=== PATIENT | female | born 2000 | race Asian ===

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

== ENCOUNTER 2019-01-06 15:16 | Outpatient (REF) | payer OTHER, SELFPAY ==
[2019-01-06 20:06] LABS: C-Reactive Protein 0.21 mg/dL (0.0-0.3); TSH (W/Ref FT4) 0.58 uIU/mL (0.36-3.74)
[2019-01-06 20:50] LABS: ESR 6 mm/hr (0-20)
[2019-01-09 09:44] LABS: Cyclic Citrullinated Peptide <2.5 U/mL (<5.0)
[2019-01-09 16:36] LABS: ANA Interpretation Negative (NEGAT)
== END 2019-01-06 15:36 ==
LOC: NCHCN 15:16
PROVIDERS: PCP Family Medicine; Visit Provider Family Medicine
DX: I73.00 Raynaud's syndrome without gangrene (principal); R20.0 Anesthesia of skin; Z83.49 Family history of other endocrine, nutritional and metabolic diseases; R63.4 Abnormal weight loss
CPT/HCPCS: 85652; 86200; 84439; 84443; 86038; 86140

== ENCOUNTER 2019-04-21 12:10 | Outpatient (REF) | payer SELFPAY ==
[2019-04-24 14:24] LABS: Chlamydia Result Negative (Negative); GC Result Negative (Negative)
== END 2019-04-21 12:30 ==
LOC: LBN 12:10
PROVIDERS: PCP Family Medicine; Visit Provider Nurse Practitioner Family
DX: Z11.3 Encounter for screening for infections with a predominantly sexual mode of transmission (principal)
CPT/HCPCS: 87491; 87591

== ENCOUNTER 2019-06-22 07:26 | Outpatient (CLI) | payer OTHER, SELFPAY ==
--- NOTE | 2019-06-22 08:00 | DI.US_ITS ---
EXAM: US PELVIS TRANSVAGINAL CLINICAL HISTORY: Pelvic pain. Evaluate IUD placement,R10.2,Z97.5. TECHNIQUE: Transabdominal and transvaginal pelvic ultrasound was performed using standard protocol. COMPARISON: No exams were available for comparison FINDINGS: KIDNEYS: Kidneys are symmetric in size. No evidence of renal calculi. No evidence of hydronephrosis. No renal mass or cyst identified. UTERUS: Position: Retroverted. Size: 6.5 cm long by 3.8 cm AP x 4.0 cm transverse. Endometrium: 0.3 cm. Normal for patient's menstrual status. The intrauterine device is in good positi on within the endometrial canal. There is a small amount of free fluid within the endometrial canal. Myometrium: Unremarkable. Cervix: Unremarkable. OVARIES: Right: 2.9 x 1.8 x 1.9 cm Cyst or mass: Small follicular cysts present. No suspicious cystic or solid masses. Left: 3.7 x 1.5 x 1.4 cm Cyst or mass: Small follicular cysts are present. No suspicious cystic or solid masses. DOPPLER: Color: Symmetric and uniform flow to both ovaries. No hyperemia. Duplex: Normal ovarian arterial waveforms visualized. CUL-DE-SAC: Free fluid: Small amount of free fluid in the right adnexa and cul-de-sac. Other: None. IMPRESSION: 1. Normal sonographic appearance of the kidneys. 2. Normal-appearing uterus with endometrial stripe within normal limits. The IUD is in good position . 3. Unremarkable bilateral ovaries. 4. Small amount of free fluid in the right adnexa and cul-de-sac. DATA REPOSITORY:
== END 2019-06-22 07:46 ==
PROVIDERS: PCP Family Medicine; Visit Provider Obstetrics & Gynecology
DX: R10.2 Pelvic and perineal pain (principal); Z30.431 Encounter for routine checking of intrauterine contraceptive device; N83.01 Follicular cyst of right ovary; N83.02 Follicular cyst of left ovary
CPT/HCPCS: 76830; 76856

== ENCOUNTER 2019-08-28 17:58 | Emergency (ER) | payer OTHER, SELFPAY ==
[2019-08-28 18:05] VITALS: BP 149/80; PULSE 96; RESP 17; TEMP 37.4; O2SAT 100
--- NOTE | 2019-08-28 18:15 | DI.RAD_ITS ---
EXAM: XR FOOT RT COMPLETE CLINICAL HISTORY: Proximal-mid fifth metatarsal pain, avid runner. TECHNIQUE: 2D digital imaging was performed. COMPARISON: No exams were available for comparison FINDINGS: BONES: No acute fracture is present. No bony destructive lesion is seen. JOINTS: No dislocation present. SOFT TISSUE: Normal. IMPRESSION: Unremarkable radiographs of the right foot. DATA REPOSITORY: RADIATION DOSE DELIVERED:
--- NOTE | 2019-08-28 18:48 | DI.VRAD_ITS ---
PROCEDURE INFORMATION: Exam: XR Right Foot Complete Exam date and time: 08/28/2019 6:33 PM Age: 18 years old Clinical indication: Foot; Right; Patient HX: Proximal-mid fifth metatarsal pain, avid runner TECHNIQUE: Imaging protocol: XR Right foot. Views: 3 or more views. COMPARISON: No relevant prior studies available. FINDINGS: Bones/joints: Normal. Soft tissues: Normal. IMPRESSION: No acute findings. Dictated and Authenticated by: Fletcher Leone MD. Ordering:CONCHA Nair MD
--- NOTE | 2019-08-28 19:00 | W.ED.GENAD ---
Discharge Plan Disposition Patient Disposition: HOME Condition: Stable Discharge Details Chief Complaint: Orthopedic Clinical Impression: Pain, foot Primary Care Provider: Hyun Garcia ED Provider: Korey Diehl Home Meds and New Rx's Prescriptions: Continued Mirena 20 mcg/24 hours (5 yrs) 52 mg intrauterine device 1 device IY ONCE RF: 0 selenium sulfide 2.25 % shampoo 1 applic TP DAILY RF: 0 ketoconazole [Nizoral] 2 % shampoo 1 applic TP Q2W RF: 0 melatonin 10 mg tablet 10 mg PO HS PRNRF: 0 cbd 1 cap PO BID RF: 0 Discharge Instructions Instructions: Foot Sprain (ED) Additional Instructions: Egzc-[id number] anti-inflammatory as directed. Wear boot as needed, advance activity as tolerated. Rest, elevate, cool compresses every 2 hours for 20 minutes. Please watch for new or worsening symptoms and return to the ER for any concerns. I would like you to follow-up with your primary care provider in the next 5-7 days. If you are not improving, outpatient imaging for potential stress fracture may be indicated. Medical Decision Making 18-year-old female who increased her running recently presents with pain to her foot. Appears well, nontoxic. No erythema, swelling, ecchymosis. Very well could be an overuse syndrome but certainly cannot rule out the idea of a stress fracture given the HPI. Will obtain x-ray. I reviewed the x-ray and then later confirmed by virtual radiology as negative. I discussed findings with patient. We discussed her options. She prefers to wear a walking boot. Walking boot applied. We discussed resting, elevating, cool compresses. We discussed [id number] anti-inflammatory medication. We discussed the importance of outpatient follow-up through her primary care provider in the next week if her symptoms are not improving as she may require advanced imaging to rule out stress fracture. Patient has no additional questions or concerns and is comfortable with this plan. Medical Records Medical records reviewed: Yes I reviewed the patient's medical records. HPI General Mode of arrival: ambulatory. Date/Time Provider Initiated Documentation: 08/28/19 18:01. Limitations to Documentation: no limitations. Information obtained by: patient. HPI Narrative: 18-year-old female with no significant past medical history, is an avid runner, reporting atraumatic right foot pain that began over the weekend. She reports that she typically runs 2-2.5 miles and has now over the last short period of time run 3.5-4 miles. Denies trauma, fever, numbness, tingling, weakness. Has not taken any medication for her symptoms. Denies any other muscular or joint pain. Denies rash. Related Data Home Medications Medication Instructions Recorded Confirmed cbd 1 cap PO BID 04/19/19 08/28/19 ketoconazole 2 % shampoo 1 applic TP Q2W ml 04/19/19 08/28/19 melatonin 10 mg tablet 10 mg PO HS PRN 04/19/19 08/28/19 selenium sulfide 2.25 % shampoo 1 applic TP DAILY 04/19/19 08/28/19 levonorgestrel 20 mcg/24 hours (5 1 device IY ONCE 05/18/19 08/28/19 yrs) 52 mg intrauterine device Allergies Allergy/AdvReac Type Severity Reaction Status Date / Time prochlorperazine Allergy Severe dystonic Verified 06/22/19 08:48 [From Compazine] reaction prochlorperazine edisylate Allergy Severe dystonic Verified 06/22/19 08:48 [From Compazine] reaction prochlorperazine maleate Allergy Severe dystonic Verified 06/22/19 08:48 [From Compazine] reaction amoxicillin [Amoxicillin] Allergy Mild Skin Rash Verified 06/22/19 08:48 General Stated Complaint: Orthopedic ONEIDA: 4 Review of Systems Constitutional Constitutional: Denies fever(s) and Denies weakness Cardiovascular Cardiovascular: Denies dyspnea Respiratory Respiratory: Denies dyspnea Musculoskeletal Musculoskeletal: Denies back pain, Denies numbness and Denies tingling Integumentary/Breasts Skin/Breast: Denies rash Neurologic Neurologic: Denies numbness, Denies tingling and Denies weakness [facility] Medical History Allergic rhinitis (Acute) Anorexia nervosa (Chronic) IUD (intrauterine device) in place (Acute) Inserted 04/2019-Mirena Numbness and tingling of foot (Acute) Raynauds phenomenon (Acute) Seborrhea capitis (Acute) Sinusitis (Acute) Weight loss (Acute) Surgical History Tonsillectomy Family History Mother Endometriosis Father Thyroid disease Grandmother Endometriosis Maternal Uncle Non-Hodgkin lymphoma Maternal Aunt Diabetes Social History Smoking/Tobacco Use Status: Never Drug use: Never Substance use type: does not use Household members: other Details: Harry Sullivan Housing: other Details: Student at [employer] Number of Children: 0 Communication Needs: None Education Level: college Details: 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 Interested in substance abuse Sexually active: Yes Do you feel safe at home: Yes Do you feel safe in your relationship?: Yes Exam Const General: cooperative, healthy appearing, comfortable and no acute distress Orientation: alert and awake HENMT Head: normal to inspection, normocephalic and atraumatic Mouth: moist mucous membranes Eyes Conjunctivae: conjunctivae normal Neck Neck: normal visual inspection, trachea midline and supple Resp Effort & Inspection: normal respiratory effort and able to speak in complete sentences Cardio Rate: regular rate Rhythm: regular rhythm Skin General skin exam: no rashes or lesions noted Neuro General: patient alert, patient awake, moves all extremities and no focal motor deficits Sensory Exam: no sensory deficits noted Extrem General: limp Right lower extremity: normal to inspection, full ROM, normal capillary refill and foot Details: normal capillary refill, normal to inspection, tenderness (Proximal half of the fifth meta tarsal), toes with normal ROM, no edema, vascular exam Details: dorsalis pedis pulse present and normal capillary refill and tendon exam Details: active flexion normal and active extension normal Psych Appearance: grossly normal Mental Status: mental status grossly normal Course Vital Signs Vital signs: Vital Signs Temperature 37.4 C 08/28/19 18:05 Pulse 96 H 08/28/19 18:05 Respiratory Rate 17 08/28/19 18:05 Blood Pressure 149/80 H 08/28/19 18:05 Pulse Oximetry 100 08/28/19 18:05 Temperature 37.4 C 08/28/19 18:05 Temperature Source Temporal Artery Scan 08/28/19 18:05 Pulse 96 H 08/28/19 18:05 Respiratory Rate 17 08/28/19 18:05 Respiratory Effort 08/28/19 18:08 Blood Pressure 149/80 H 08/28/19 18:05 Blood Pressure Position Sitting 08/28/19 18:05 Pulse Oximetry 100 08/28/19 18:05 Oxygen Delivery Method Room Air 08/28/19 18:05 Oxygen Flow Rate 0 08/28/19 18:05 Pain Level 8 08/28/19 18:05
== END 2019-08-28 19:10 | disposition home or self-care (01) ==
PROVIDERS: Emergency Provider Physician Assistant; PCP Family Medicine
DX: M25.571 Pain in right ankle and joints of right foot (principal); Y93.02 Activity, running
CPT/HCPCS: 29515; 99283; 73630; L4361

== ENCOUNTER 2019-09-20 13:20 | Outpatient (REF) | payer OTHER, SELFPAY ==
[2019-09-25 12:05] LABS: SARS-CoV-2 RNA Undetected (Undetected); SARS-CoV-2 Specimen Source Nasopharynx
== END 2019-09-20 13:40 ==
LOC: NCHCN 13:20
PROVIDERS: PCP Family Medicine; Visit Provider Nurse Practitioner Family
DX: Z20.828 Contact with and (suspected) exposure to other viral communicable diseases (principal)
CPT/HCPCS: U0003

== ENCOUNTER 2019-10-05 10:05 | Emergency (ER) | payer OTHER, SELFPAY ==
[2019-10-05 10:10] VITALS: BP 125/80; PULSE 62; RESP 16; TEMP 36.6; O2SAT 100
--- NOTE | 2019-10-05 10:37 | W.ED.GENAD ---
Discharge Plan Disposition Patient Disposition: HOME Condition: Stable Discharge Details Chief Complaint: Abd Prob Clinical Impression: Cyst of left ovary Primary Care Provider: Hyun Garcia ED Provider: Ysabel Rg Home Meds and New Rx's Prescriptions: New ondansetron 4 mg tablet,disintegrating 4 mg PO Q8H PRN (Reason: nausea and vomiting) Qty: 10 RF: 0 No Action Mirena 20 mcg/24 hours (5 yrs) 52 mg intrauterine device 1 device IY ONCE RF: 0 selenium sulfide 2.25 % shampoo 1 applic TP DAILY RF: 0 ketoconazole [Nizoral] 2 % shampoo 1 applic TP Q2W RF: 0 melatonin 10 mg tablet 10 mg PO HS PRNRF: 0 cbd 1 cap PO BID RF: 0 Discharge Instructions Instructions: Ovarian Cyst (ED) Additional Instructions: Follow-up with women's wellness. Apply warm compresses. Please take Tylenol or Ibuprofen with food every 4-6 hours as needed for pain and swelling. Follow up with primary care provider in 3-5 days. Return to ED sooner if any worsening pain, fever, vaginal bleeding, vaginal discharge or concerns. Increase oral fluids. Referrals: Hyun Garcia MD [Primary Care Provider] - Micheal Felipe MD [ NON-[facility] STAFF PHYSICIAN] - Discharge Data Discharge Date/Time-TO BE ENTERED AT DEPARTURE: 10/05/19 12:13 Medical Decision Making 18-year-old female presents to the ER with left lower quadrant abdominal pain and left flank pain. She reports some mild pain started yesterday increased today just prior to arrival. Associated with vomiting. She does have a history of ovarian cyst but states that this pain is worse. Reports diarrhea 1 week ago. Denies fever chills. Denies vaginal bleeding or discharge. LNMP was in April, she does have the IUD Mirena. Pain is moderate to severe on a scale she rates pain 10 out of 10. Intermittent and colicky in nature. Position makes it better. 1044: At this time work-up ordered including CBC, CMP, urinalysis. Urine POC negative. CBC shows no leukocytosis, sodium potassium within normal limits. Urinalysis shows negative for blood no nitrites or leukocytes. CT abdomen pelvis without contrast ordered to rule out kidney stone versus ovarian cyst. Differential diagnosis at this time is diverticulitis, kidney stone, ovarian cyst, ectopic , UTI, pyelonephritis. Exam(s) a CT:CT abdomen & pelvis wo EXAM: CT ABDOMEN PELVIS WO CLINICAL HISTORY: Left flank pain, R/O Kidney stone, vs ovarian cyst. TECHNIQUE: Imaging Protocol: Axial computed tomography images with coronal and sagittal reformatted images were created and reviewed. COMPARISON: No exams were available for comparison FINDINGS: ABDOMEN: Lung Bases: Normal where visualized. Liver: Normal density. No measurable mass. Gallbladder and biliary tract: No radiodense calculus or biliary ductal dilation. Pancreas: Normal density, no abnormal calcifications or inflammatory process. Spleen: Normal. Kidneys: Normal size, contour and axis.No radiodense stones or obstructive uropathy. No masses seen. Adrenal glands: No mass is seen. Lymph nodes: Within normal limits. Abdominal Aorta: Abdominal portion non-dilated. PELVIS: Bladder:Symmetric distention, no gross wall thickening. Bowel: No obstruction or bowel wall thickening. No evidence of acute appendicitis. Peritoneal cavity: No collection or mesenteric inflammatory response there is a trace amount of fluid in the cul-de-sac which is likely physiologic. Reproductive organs: An IUD is in place. There is a 2.5 cm left ovarian cyst. Bones: Within normal limits. Soft Tissues: Within normal limits. IMPRESSION: 1. 2.5 cm left ovarian cyst. 2. No evidence of nephrolithiasis or obstructive uropathy. 3. Findings were discussed with the emergency department on the date of the examination 1149: Discussed findings with patient regarding ovarian cyst, she has had ovarian cyst in the past and has followed up with women's wellness. Plan is to discharge patient home, instructed on warm compresses and Tylenol and ibuprofen given strict return instructions, verbalized understanding. Medical Records Medical records reviewed: Yes I reviewed the patient's medical records. Medical records narrative: Reviewed ultrasound results from July 03, 2019, she did have bilateral ovarian cysts at that time, endometrial stripe was within normal limits for patient's menstrual status. Lab Data Lab results reviewed: Yes I reviewed the patient's lab results. HPI General Mode of arrival: ambulatory. Date/Time Provider Initiated Documentation: 10/05/19 10:23. Limitations to Documentation: no limitations. Information obtained by: patient. HPI Narrative: 18-year-old female presents to the ER with left lower quadrant abdominal pain and left flank pain. She reports some mild pain started yesterday increased today just prior to arrival. Associated with vomiting. She does have a history of ovarian cyst but states that this pain is worse. Reports diarrhea 1 week ago. Denies fever chills. Denies vaginal bleeding or discharge. LNMP was in April, she does have the IUD Mirena. Pain is moderate to severe on a scale she rates pain 10 out of 10. Intermittent and colicky in nature. Position makes it better. Related Data Home Medications Medication Instructions Recorded Confirmed cbd 1 cap PO BID 04/19/19 10/05/19 ketoconazole 2 % shampoo 1 applic TP Q2W ml 04/19/19 10/05/19 melatonin 10 mg tablet 10 mg PO HS PRN 04/19/19 10/05/19 selenium sulfide 2.25 % shampoo 1 applic TP DAILY 04/19/19 10/05/19 levonorgestrel 20 mcg/24 hours (5 1 device IY ONCE 05/18/19 10/05/19 yrs) 52 mg intrauterine device ondansetron 4 mg PO Q8H PRN #10 tab 10/05/19 Previous Rx's Medication Instructions Recorded ondansetron 4 mg PO Q8H PRN #10 tab 10/05/19 Allergies Allergy/AdvReac Type Severity Reaction Status Date / Time prochlorperazine Allergy Severe dystonic Verified 10/05/19 10:14 [From Compazine] reaction prochlorperazine edisylate Allergy Severe dystonic Verified 10/05/19 10:14 [From Compazine] reaction prochlorperazine maleate Allergy Severe dystonic Verified 10/05/19 10:14 [From Compazine] reaction amoxicillin [Amoxicillin] Allergy Mild Skin Rash Verified 10/05/19 10:14 General Stated Complaint: Abd Prob ONEIDA: 3 Review of Systems Narrative: Constitutional: Negative for weight loss, alert and oriented, well groomed, normal body habitus, appears uncomfortable. HEENT: Denies trauma, headaches, blurry vision, nasal discharge, sore throat, trouble swallowing. Chest: Denies chest pain, palpitations, irregular rhythm, hypertension. Respiratory: Denies Shortness of breath, cough, hemoptysis. GI: Denies constipation. Positive left lower quadrant abdominal pain, positive nausea vomiting, and diarrhea 1 week ago. : Denies dysuria, hematuria, rectal bleeding. Positive left flank pain. History of ovarian cyst. Neuro: Denies dizziness, blurry vision, weakness, syncope, headache or facial numbness. Hematologic: Denies easy bruising, intolerance to heat or cold, hair loss. [facility] Medical History Allergic rhinitis (Acute) Anorexia nervosa (Chronic) IUD (intrauterine device) in place (Acute) Inserted 04/2019-Mirena Numbness and tingling of foot (Acute) Raynauds phenomenon (Acute) Seborrhea capitis (Acute) Sinusitis (Acute) Weight loss (Acute) Surgical History Tonsillectomy Family History Mother Endometriosis Father Thyroid disease Grandmother Endometriosis Maternal Uncle Non-Hodgkin lymphoma Maternal Aunt Diabetes Social History Smoking/Tobacco Use Status: Never Alcohol Intake: current Alcohol Intake frequency: holidays/special occasions only Drug use: Never Substance use type: does not use Household members: other Details: Harry Sullivan Housing: other Details: Student at [employer] Number of Children: 0 Communication Needs: None Education Level: college Details: 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 Interested in substance abuse Sexually active: Yes Do you feel safe at home: Yes Do you feel safe in your relationship?: Yes Exam Narrative Exam Narrative: Constitutional: Alert and oriented x3. Appears stated age. Normal body habitus. Head: Normocephalic, no trauma. Eyes: Pupils PERRLA, Red reflex noted, EOM's intact. Eyelids symmetrical without lesions, discharge, or swelling. ENT: Bilateral TM's WNL, External ear normal to inspection, no mastoid TTP, swelling, or erythema, Nasal turbinates WNL, no nasal discharge. Normal dentition, Posterior pharynx WNL, no exudate. Chest: RRR, Normal S1, S2, distal pulses intact. Resp: Lungs clear to auscultation bilaterally, no wheezes, rales, or rhonchi. Abdomen: Soft nondistended, left lower quadrant tenderness and guarding with palpation. Hypoactive bowel sounds all 4 quadrants. Musculoskeletal: Normal gait, 5/5 strength to all four extremities. Skin: No suspicious rashes or lesions. Capillary refill less than 2 sec. Neurologic: Cranial nerves II-XII intact. Alert and oriented x 3. DTR's intact. Hematologic/Lymphatic: No ecchymosis, no lymphadenopathy. Course Vital Signs Vital signs: Vital Signs Temperature 36.6 C 10/05/19 10:10 Pulse 62 10/05/19 10:10 Respiratory Rate 16 10/05/19 10:10 Blood Pressure 125/80 10/05/19 10:10 Pulse Oximetry 100 10/05/19 10:10 Temperature 36.6 C 10/05/19 10:10 Temperature Source Temporal Artery Scan 10/05/19 10:10 Pulse 62 10/05/19 10:10 Respiratory Rate 16 10/05/19 10:10 Respiratory Effort Non-Labored 10/05/19 10:16 Blood Pressure 125/80 10/05/19 10:10 Blood Pressure Position Supine 10/05/19 10:10 Pulse Oximetry 100 10/05/19 10:10 Oxygen Delivery Method Room Air 10/05/19 10:10 Oxygen Flow Rate 0 10/05/19 10:10 Pain Level 9 10/05/19 10:10
[2019-10-05 10:40] LABS: Abs Immature Grans 0.01 k/cumm (0.0-0.09); Absolute Basophil Count 0.02 k/cumm (0.0-0.2); Absolute Eosinophil Count 0.05 k/cumm (0.0-0.7); Absolute Lymphocyte Count 2.84 k/cumm (1.2-3.4); Absolute Monocyte Count 0.48 k/cumm (0.11-0.7); Absolute Neutrophil Count 3.26 k/cumm (1.2-6.7); Basophils % 0.3; Eosinophils % 0.8; HCT 42.9 % (36.0-46.0); HGB 14.3 g/dL (12.0-15.5); Immature Grans % 0.2 %; Lymphocytes % 42.6; Mean Corp. HGB Concentration 33.3 g/dL (32.0-36.0); Mean Corpuscular Hemoglobin 28.7 pg (27.0-33.0); Mean Platelet Volume 11.3 fL (8.0-11.0); Monocytes % 7.2; Neutrophils % 48.9; Platelet Count 240 x1000/uL (130-400); RBC 4.99 m/cumm (4.00-5.20); RBC Distribution Width 12.3 % (11.7-14.6); White Blood Cell Count 6.66 k/cumm (4.4-10.8)
[2019-10-05 10:47] LABS: Bilirubin Negative (Negative); Blood Negative (Negative); Clarity Sl Cloudy (Clear); Glucose Negative (Negative); Ketones Negative (Negative); Leukocyte Esterase Negative (Negative); Nitrite Negative (Negative); Specific Gravity 1.025 (1.005-1.025); Urobilinogen 0.2 EU/dL (Up TO 0.2)
[2019-10-05 10:55] LABS: ALT 33 U/L (14-59); AST 27 U/L (15-37); Albumin 4.3 g/dL (3.4-5.0); Alkaline Phosphatase 128 U/L (46-116); Anion Gap 8.9 mmol/L (3-11); BUN 12 mg/dL (7-18); Bilirubin, Total 0.8 mg/dL (0.2-1.0); CO2 27.1 mmol/L (21.0-32.0); CREATININE 0.94 mg/dL (0.55-1.02); Calcium 9.2 mg/dL (8.5-10.1); Chloride 104 mmol/L (98-107); Glucose 118 mg/dL (74-106); Potassium 4.2 mmol/L (3.5-5.1); Sodium 140 mmol/L (136-145); Total Protein 7.2 g/dL (6.4-8.2)
[2019-10-05] MEDS: Normal Saline 1,000 ML 1000 ML IV (11:00)
[2019-10-05] MEDS: Acetaminophen 500 MG TAB PO (11:00)
[2019-10-05] MEDS: Ondansetron 4 MG/2 ML VIAL IVP (11:00)
--- NOTE | 2019-10-05 11:22 | DI.CT_ITS ---
EXAM: CT ABDOMEN PELVIS WO CLINICAL HISTORY: Left flank pain, R/O Kidney stone, vs ovarian cyst. TECHNIQUE: Imaging Protocol: Axial computed tomography images with coronal and sagittal reformatted images were created and reviewed. COMPARISON: No exams were available for comparison FINDINGS: ABDOMEN: Lung Bases: Normal where visualized. Liver: Normal density. No measurable mass. Gallbladder and biliary tract: No radiodense calculus or biliary ductal dilation. Pancreas: Normal density, no abnormal calcifications or inflammatory process. Spleen: Normal. Kidneys: Normal size, contour and axis.No radiodense stones or obstructive uropathy. No masses seen. Adrenal glands: No mass is seen. Lymph nodes: Within normal limits. Abdominal Aorta: Abdominal portion non-dilated. PELVIS: Bladder:Symmetric distention, no gross wall thickening. Bowel: No obstruction or bowel wall thickening. No evidence of acute appendicitis. Peritoneal cavity: No collection or mesenteric inflammatory response there is a trace amount of fluid in the cul-de-sac which is likely physiologic. Reproductive organs: An IUD is in place. There is a 2.5 cm left ovarian cyst. Bones: Within normal limits. Soft Tissues: Within normal limits. IMPRESSION: 1. 2.5 cm left ovarian cyst. 2. No evidence of nephrolithiasis or obstructive uropathy. 3. Findings were discussed with the emergency department on the date of the examination. RADIATION DOSE DELIVERED: Total DLP DATA REPOSITORY: All CT scans at this facility are submitted to the National Radiology Data Registry (NRDR) Dose Index Registry (DIR) with the [employer] (ACR). RADIATION OPTIMIZATION: All CT scans at this facility use at least one of these dose optimization te chniques: automated exposure control; mA and/or kV adjustment per patient size (includes targeted exa ms where dose is matched to clinical indication); or iterative reconstruction.
[2019-10-05 11:29] VITALS: BP 107/59; PULSE 60; RESP 18; TEMP 36.8; O2SAT 100
== END 2019-10-05 12:13 | disposition home or self-care (01) ==
PROVIDERS: Emergency Provider Registered Nurse Emergency; PCP Family Medicine
DX: N83.202 Unspecified ovarian cyst, left side (principal); R11.2 Nausea with vomiting, unspecified
CPT/HCPCS: 36415; 80053; 81025; 96361; 96374; 99285; 74176; 81003; 85025; 99284; J2405

== ENCOUNTER 2019-12-11 09:19 | Outpatient (REF) | payer OTHER, SELFPAY ==
[2019-12-18 13:20] LABS: Campylobacter PCR Negative (Negative); Salmonella PCR Negative (Negative); Shiga Toxin PCR Negative (Negative); Shigella/Enteroinvasive Ecoli Negative (Negative)
== END 2019-12-11 09:39 ==
LOC: NCHCN 09:19
PROVIDERS: PCP Family Medicine; Visit Provider Family Medicine
DX: R19.7 Diarrhea, unspecified (principal)
CPT/HCPCS: 87329; 87505; 83630; 87324

== ENCOUNTER 2020-03-09 10:00 | Outpatient (REF) | payer OTHER, SELFPAY ==
[2020-03-12 16:49] LABS: COVID-19 RT-PCR UVMMC Result Negative (Negative)
== END 2020-03-09 10:20 ==
LOC: NCHCN 10:00
PROVIDERS: PCP Family Medicine; Visit Provider Nurse Practitioner Family
DX: R50.9 Fever, unspecified (principal)
CPT/HCPCS: U0003

== ENCOUNTER 2020-04-07 19:47 | Emergency (ER) | payer OTHER, SELFPAY ==
[2020-04-07] VITALS (12 sets, daily range): BP systolic 123–145; BP diastolic 78–98; PULSE 56–66; RESP 18; TEMP 36.8; O2SAT 97–100
--- NOTE | 2020-04-07 19:58 | ED.GENADUL_ITS ---
Discharge Plan Disposition Patient Disposition: HOME Condition: Stable Discharge Details Clinical Impression: Left sided abdominal pain Primary Care Provider: Hyun Garcia ED Provider: Ysabel Rg Home Meds and New Rx's Prescriptions: No Action Mirena 20 mcg/24 hours (5 yrs) 52 mg intrauterine device 1 device IY ONCE RF: 0 tretinoin 0.025 % cream 1 applic topical QHS Qty: 20 RF: 2 selenium sulfide 2.25 % shampoo 1 applic TP DAILY RF: 0 ketoconazole [Nizoral] 2 % shampoo 1 applic TP Q2W RF: 0 melatonin 10 mg tablet 10 mg PO HS PRNRF: 0 cbd 1 cap PO BID RF: 0 Discharge Instructions Instructions: Abdominal Pain (ED) Additional Instructions: Follow up with primary care provider in 3-5 days. Return to ED sooner if any worsening or concerns. Increase oral fluids. Please take Tylenol or Ibuprofen with food every 4-6 hours as needed for pain and swelling. Take tramadol as directed with food. If no relief please return to the ED. We did discuss possible ultrasound to rule out ovarian torsion. Referrals: Hyun Garcia MD [Primary Care Provider] - Medical Decision Making 19-year-old female presents to the ER with chief complaint of left lower quadrant abdominal pain which began around 6:00 this evening. Patient states that it came on suddenly. She states it waxes and wanes, described as sharp radiates into her left flank. Associated with dizziness, nausea and loose stools. She does have an IUD in place. She is tearful and uncomfortable upon arrival. She did take meclizine and Tylenol prior to arrival. She denies any vaginal discharge or bleeding. No fever. Denies any problems urinating. Differential diagnosis includes but not limited to kidney stone, ovarian cyst, ovarian torsion, ectopic , small bowel obstruction, gastroenteritis. 2030: Patient hCG qualitative negative, CT abdomen pelvis with contrast ordered. Patient reports that her pain is intensifying. 2 more milligrams of morphine ordered. Exam: CT Abdomen And Pelvis With Contrast Exam date and time: 04/07/2020 8:23 PM Age: 19 years old Clinical indication: Localized; Left lower quadrant (llq); Patient HX: Lower abdominal pain off and on COMPARISON: CT ABDOMEN PELVIS WO 10/05/2019 11:12 AM FINDINGS: Liver: There is mild periportal edema. Gallbladder and bile ducts: Normal. No calcified stones. No ductal dilation. Pancreas: Normal. No ductal dilation. Spleen: Normal. No splenomegaly. Adrenal glands: Normal. No mass. Kidneys and ureters: Normal. No hydronephrosis. Stomach and bowel: Unremarkable. No obstruction. No mucosal thickening. Appendix: The appendix is not identified. There are no secondary signs for acute appendicitis. Intraperitoneal space: Minimal free fluid seen in the deep pelvis. Vasculature: Unremarkable. No abdominal aortic aneurysm. Lymph nodes: Unremarkable. No enlarged lymph nodes. Urinary bladder: Unremarkable as visualized. Reproductive: IUD in place. The uterus is retroverted, unchanged from previous study. Bones/joints: Unremarkable. No acute fracture. Soft tissues: Unremarkable. IMPRESSION: Minimal free fluid. No additional acute abnormality evident. Labs are largely unremarkable. No signs of infection, no signs of urinary tract infection. I did discuss CT results and lab results with patient who verbalized understanding. She is much more comfortable upon reevaluation. I did discuss ordering a ultrasound for tomorrow to rule out ovarian torsion or intrapelvic abnormality. Patient declined at this time. I did discuss strict return instructions and instructed that if pain gets severe not relieved by medications to return to the ED. Patient given 2 tramadol's to go. Patient was hemodynamically stable at the time of dictation. HPI General Mode of arrival: ambulatory . Date/Time Provider Initiated Documentation: 04/07/20 19:48 . Limitations to Documentation: no limitations . Information obtained by: patient . HPI Narrative: 19-year-old female presents to the ER with chief complaint of left lower quadrant abdominal pain which began around 6:00 this evening. Patient states that it came on suddenly. She states it waxes and wanes, described as sharp radiates into her left flank. Associated with dizziness, nausea and loose stools. She does have an IUD in place. She is tearful and uncomfortable upon arrival. She did take meclizine and Tylenol prior to arrival. She denies any vaginal discharge or bleeding. No fever. Denies any problems urinating. Related Data Home Medications Medication Instructions Recorded Confirmed cbd 1 cap PO BID 04/19/19 04/07/20 ketoconazole 2 % shampoo 1 applic TP Q2W ml 04/19/19 04/07/20 melatonin 10 mg tablet 10 mg PO HS PRN 04/19/19 04/07/20 selenium sulfide 2.25 % shampoo 1 applic TP DAILY 04/19/19 04/07/20 levonorgestrel 20 mcg/24 hours (6 1 device IY ONCE 05/18/19 04/07/20 yrs) 52 mg intrauterine device tretinoin 0.025 % topical cream 1 applic TOPICAL QHS #20 g 04/04/20 04/07/20 Previous Rx's Medication Instructions Recorded tretinoin 0.025 % topical cream 1 applic TOPICAL QHS #20 g 04/04/20 Allergies Allergy/AdvReac Type Severity Reaction Status Date / Time prochlorperazine Allergy Severe dystonic Verified 04/07/20 19:58 [From Compazine] reaction prochlorperazine edisylate Allergy Severe dystonic Verified 04/07/20 19:58 [From Compazine] reaction prochlorperazine maleate Allergy Severe dystonic Verified 04/07/20 19:58 [From Compazine] reaction amoxicillin [Amoxicillin] Allergy Mild Skin Rash Verified 04/07/20 19:58 General Stated Complaint: Abd Prob ONEIDA: 3 Review of Systems Narrative: Constitutional: Negative for weight loss, alert and oriented, well groomed, normal body habitus, appears comfortable. HEENT: Denies trauma, headaches, blurry vision, nasal discharge, sore throat, trouble swallowing. Chest: Denies chest pain, palpitations, irregular rhythm, hypertension. Respiratory: Denies Shortness of breath, cough, hemoptysis. GI: Denies constipation. Positive left lower quadrant abdominal pain, nausea, dry heaving. : Denies dysuria, hematuria, rectal bleeding. Positive left flank pain. Neuro: Denies blurry vision, weakness, syncope, headache or facial numbness. Positive dizziness. Hematologic: Denies easy bruising, intolerance to heat or cold, hair loss. [facility] Medical History Acne vulgaris Allergic rhinitis Anorexia nervosa IUD (intrauterine device) in place Inserted 04/2019-Mirena Numbness and tingling of foot Raynauds phenomenon Seborrhea capitis Sinusitis Weight loss Surgical History Tonsillectomy Family History Mother Endometriosis Father Thyroid disease Grandmother Endometriosis Maternal Uncle Non-Hodgkin lymphoma Maternal Aunt Diabetes Social History Smoking risk assessment performed?: No Alcohol Intake: current Alcohol Intake frequency: holidays/special occasions only Drug use: Never Substance use type: does not use Household members: other Details: Harry Sullivan Housing: other Details: Student at [employer] Number of Children: 0 Communication Needs: None Education Level: college Details: 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 Interested in substance abuse Sexually active: Yes Do you feel safe at home: Yes Do you feel safe in your relationship?: Yes Exam Narrative Exam Narrative: Constitutional: Alert and oriented x3. Appears stated age. Normal body habitus. Head: Normocephalic, no trauma. Eyes: Pupils PERRLA, Red reflex noted, EOM's intact. Eyelids symmetrical without lesions, discharge, or swelling. ENT: Bilateral TM's WNL, External ear normal to inspection, no mastoid TTP, swelling, or erythema, Nasal turbinates WNL, no nasal discharge. Normal d entition, Posterior pharynx WNL, no exudate. Chest: RRR, Normal S1, S2, distal pulses intact. Resp: Lungs clear to auscultation bilaterally, no wheezes, rales, or rhonchi. Abdomen: Soft, guarding, nondistended. Musculoskeletal: Normal gait, 5/5 strength to all four extremities. Skin: No suspicious rashes or lesions. Capillary refill less than 2 sec. Neurologic: Cranial nerves II-XII intact. Alert and oriented x 3. DTR's intact. Hematologic/Lymphatic: No ecchymosis, no lymphadenopathy. Course Vital Signs Vital signs: Vital Signs Temperature 36.8 C 04/07/20 19:52 Pulse 64 04/07/20 19:52 Respiratory Rate 18 04/07/20 19:52 Blood Pressure 145/78 H 04/07/20 19:52 Pulse Oximetry 100 04/07/20 19:52 Temperature 36.8 C 04/07/20 19:52 Temperature Source Tympanic 04/07/20 19:52 Pulse 64 04/07/20 19:52 Respiratory Rate 18 04/07/20 19:52 Blood Pressure 145/78 H 04/07/20 19:52 Pulse Oximetry 100 04/07/20 19:52 Oxygen Delivery Method Room Air 04/07/20 19:52 Oxygen Flow Rate 0 04/07/20 19:52 Pain Level 10 04/07/20 19:52
[2020-04-07] MEDS: Ondansetron 4 MG/2 ML VIAL IVP (20:00)
[2020-04-07] MEDS: MORPHine 10 MG/ML VIAL 2 MG IVP (20:05)
[2020-04-07] MEDS: Normal Saline 1,000 ML 1000 ML IV (20:05)
[2020-04-07 20:07] LABS: Abs Immature Grans 0.02 10^3/uL (0.0-0.06); Absolute Basophil Count 0.03 10^3/uL (0.0-0.2); Absolute Eosinophil Count 0.09 10^3/uL (0.0-0.7); Absolute Lymphocyte Count 2.72 10^3/uL (1.2-3.4); Absolute Monocyte Count 0.69 10^3/uL (0.1-0.8); Absolute Neutrophil Count 3.67 10^3/uL (1.2-6.7); Basophils % 0.4; Eosinophils % 1.2; HCT 42.9 % (36.0-46.0); HGB 14.1 g/dL (11.2-15.7); Immature Grans % 0.3; Lymphocytes % 37.7; MCH 28.8 pg (27.0-33.0); MCHC 32.9 % (32.0-36.0); MCV 87.7 fL (80-95); MPV 10.7 fL (8.0-11.0); Monocytes % 9.6; Neutrophils % 50.8; Nucleated RBC 0 %; Platelet Count 233 10^3/uL (130-400); RBC 4.89 10^6/uL (3.93-5.22); RDW 11.8 % (11.7-14.6); RDW-SD 38.1 fL; WBC 7.22 10^3/uL (4.4-10.8)
--- NOTE | 2020-04-07 20:15 | DI.CT_ITS ---
EXAM: CT ABDOMEN PELVIS W CLINICAL HISTORY: LLQ abd pain. TECHNIQUE: Imaging Protocol: Axial computed tomography images with coronal and sagittal reformatted images were created and reviewed CONTRAST MATERIAL: Intravenous: Omnipaque 74cc Oral: None COMPARISON: CT CT ABDOMEN PELVIS WO from 10/05/2019 FINDINGS: VISUALIZED LUNG BASES: No nodules nor pleural effusions evident. ABDOMEN: There is no ascites in the upper abdomen. There is a small amount of free fluid in the cul-de-sac.. LIVER: There are no obvious focal hepatic lesions evident. There is slight prominence of intrahepati c ducts. The CBD is not dilated GALLBLADDER/BILIARY: No obvious gallbladder pathology. CBD is not dilated. PANCREAS: No evidence of pancreatic mass nor dilatation of the pancreatic duct. SPLEEN: Spleen size is upper normal. Splenic and portal veins are patent. ADRENALS: There are no significant adrenal masses. KIDNEYS:No cysts evident. No solid renal masses. No calculi nor hydronephrosis.. ABDOMINAL AORTA: Abdominal aorta is not enlarged and there is no [id number]-[id number] adenopat hy. ABDOMINAL WALL/GI: No evidence of significant anterior abdominal wall hernia. No bowel obstruction. PELVIS: GI: Appendix is difficult to visualize but there is no obvious evidence of acute appendicitis.No evid ence of sigmoid diverticulitis. LYMPH NODES: There is no intrapelvic nor inguinal adenopathy. REPRODUCTIVE: There is an IUD in the uterus. The uterus is retroverted. Ovaries appear age-appropri ate. Small amount of fluid in the right owwnvw-kyi-py-sac. URINARY BLADDER: No calculi nor obvious masses evident OSSEOUS: No significant osseous lesions. IMPRESSION: 1. There is an IUD in the uterine cavity. The uterus is retroverted. 2. Is a small amount of fluid in the cul-de-sac and right adnexa, possibly just female physiologic. 3. There appears to be slight dilatation of intrahepatic ducts versus periportal edema. Recommend ap propriate hepatic/biliary blood work. 4. Pancreas appears unremarkable. 5. No evidence of appendicitis RADIATION DOSE DELIVERED: 500.82mGy.cm Total DLP DATA REPOSITORY: All CT scans at this facility are submitted to the National Radiology Data Registry (NRDR) Dose Index Registry (DIR) with the [employer] (ACR). RADIATION OPTIMIZATION: All CT scans at this facility use at least one of these dose optimization te chniques: automated exposure control; mA and/or kV adjustment per patient size (includes targeted exa ms where dose is matched to clinical indication); or iterative reconstruction.
[2020-04-07 20:20] LABS: HCG Qual (Serum) Negative
[2020-04-07 20:21] LABS: ALT 46 U/L (14-59); AST 30 U/L (15-37); Albumin 4.1 g/dL (3.4-5.0); Alkaline Phosphatase 205 U/L (46-116); BUN 17 mg/dL (7-18); Bilirubin, Total 0.4 mg/dL (0.2-1.0); CREATININE 0.96 mg/dL (0.55-1.02); Chloride 105 mmol/L (98-107); Glucose 127 mg/dL (74-106); Lipase 114 U/L (73-393); Magnesium 1.9 mg/dL (1.8-2.4); Potassium 3.8 mmol/L (3.5-5.1); Sodium 140 mmol/L (136-145)
[2020-04-07] MEDS: Omnipaque 350 MG/ML 100 ML BTL IJ (20:34)
[2020-04-07] MEDS: Normal Saline - Diluent 50 ML VIAL IV (21:00)
[2020-04-07] MEDS: Normal Saline Flush 10 ML SYR IVP (21:00)
--- NOTE | 2020-04-07 21:15 | DI.VRAD_ITS ---
PROCEDURE INFORMATION: Exam: CT Abdomen And Pelvis With Contrast Exam date and time: 04/07/2020 8:23 PM Age: 19 years old Clinical indication: Localized; Left lower quadrant (llq); Patient HX: Lower abdominal pain off and on over a period of time but increases today TECHNIQUE: Imaging protocol: Computed tomography of the abdomen and pelvis with intravenous contrast. Radiation optimization: All CT scans at this facility use at least one of these dose optimization techniques: automated exposure control; mA and/or kV adjustment per patient size (includes targeted exams where dose is matched to clinical indication); or iterative reconstruction. Contrast material: OMNIPAQUE 350; Contrast volume: 74 ml; Contrast route: INTRAVENOUS (IV); COMPARISON: CT ABDOMEN PELVIS WO 10/05/2019 11:12 AM FINDINGS: Liver: There is mild periportal edema. Gallbladder and bile ducts: Normal. No calcified stones. No ductal dilation. Pancreas: Normal. No ductal dilation. Spleen: Normal. No splenomegaly. Adrenal glands: Normal. No mass. Kidneys and ureters: Normal. No hydronephrosis. Stomach and bowel: Unremarkable. No obstruction. No mucosal thickening. Appendix: The appendix is not identified. There are no secondary signs for acute appendicitis. Intraperitoneal space: Minimal free fluid seen in the deep pelvis. Vasculature: Unremarkable. No abdominal aortic aneurysm. Lymph nodes: Unremarkable. No enlarged lymph nodes. Urinary bladder: Unremarkable as visualized. Reproductive: IUD in place. The uterus is retroverted, unchanged from previous study. Bones/joints: Unremarkable. No acute fracture. Soft tissues: Unremarkable. IMPRESSION: Minimal free fluid. No additional acute abnormality evident. Dictated and Authenticated by: Mckayla Cordero MD. Ordering:BIANCA Grady MD
[2020-04-07 21:33] LABS: Bilirubin Negative (Negative); Blood Negative (Negative); Clarity Clear (Clear); Glucose Negative (Negative); Ketones Negative (Negative); Leukocyte Esterase Negative (Negative); Nitrite Negative (Negative); Urobilinogen 0.2 EU/dL (Up TO 0.2)
--- NOTE | 2020-04-07 21:57 | NUR.NOTE ---
sent follow up referral to pcp for follow up in 3 to 5 days for abd pain Juvenal Mccarthy Note:
== END 2020-04-07 22:10 | disposition home or self-care (01) ==
LOC: ER 22:08
PROVIDERS: Emergency Provider Registered Nurse Emergency; PCP Family Medicine
DX: R10.32 Left lower quadrant pain (principal); R42 Dizziness and giddiness; R11.0 Nausea
CPT/HCPCS: 36415; 80053; 81025; 83690; 96361; 96374; 96375; 96376; 99285; 74177; 81003; 83735; 84703; 85025; 99284; J2270; J2405; J3490

== ENCOUNTER 2020-04-08 18:52 | Outpatient (REF) | payer OTHER, SELFPAY ==
[2020-04-10 11:06] LABS: IgA 85 mg/dL (85-499); Interpretation (See Note); Tissue Transglutaminase IgA <1.2 U/mL (<4.0)
== END 2020-04-08 19:12 ==
LOC: NCHCN 18:52
PROVIDERS: PCP Family Medicine; Visit Provider Family Medicine
DX: R10.32 Left lower quadrant pain (principal)
CPT/HCPCS: 82784; 83516

== ENCOUNTER 2020-05-23 03:47 | Outpatient (CLI) | payer OTHER, SELFPAY ==
[2020-05-23 09:48] LABS: ALT 45 U/L (14-59); AST 24 U/L (15-37); Albumin 4.2 g/dL (3.4-5.0); Alkaline Phosphatase 156 U/L (46-116); Anion Gap 11.5 mmol/L (3-11); BUN 17 mg/dL (7-18); Bilirubin, Total 0.6 mg/dL (0.2-1.0); CO2 24.5 mmol/L (21.0-32.0); CREATININE 0.8 mg/dL (0.55-1.02); Calcium 9.2 mg/dL (8.5-10.1); Chloride 104 mmol/L (98-107); GGT 38 U/L (5-55); Glucose 89 mg/dL (74-106); Potassium 3.8 mmol/L (3.5-5.1); Sodium 140 mmol/L (136-145); TSH (W/Ref FT4) 1.43 uIU/mL (0.36-3.74); Total Protein 6.8 g/dL (6.4-8.2)
== END 2020-05-23 03:48 | disposition home or self-care (01) ==
LOC: LBO 03:47
PROVIDERS: Internal Medicine; PCP Family Medicine; Visit Provider Family Medicine
DX: R19.4 Change in bowel habit (principal); R74.8 Abnormal levels of other serum enzymes
CPT/HCPCS: 36415; 80053; 82977; 84443

== ENCOUNTER 2020-10-08 12:05 | Emergency (ER) | payer OTHER, SELFPAY ==
[2020-10-08 12:10] VITALS: BP 145/100; PULSE 111; RESP 22; TEMP 37; O2SAT 100
--- NOTE | 2020-10-08 12:45 | DI.US_ITS ---
Exam(s) US PELVIS TRANSVAGINAL EXAM: US PELVIS TRANSVAGINAL CLINICAL HISTORY: LLQ abd pain, vomiting, r/o torsion vs cyst. TECHNIQUE: Transabdominal and transvaginal pelvic ultrasound was performed using standard protocol. COMPARISON: US US PELVIS TRANSVAGINAL from 06/22/2019 FINDINGS: KIDNEYS: Kidneys are symmetric in size. No evidence of renal calculi. No evidence of hydronephrosis. No renal mass or cyst identified. UTERUS: Position: Retroverted. Size: 6.1 long by 4.0 AP by 4.3 transverse cm Endometrium: 0.2 cm. Normal for patient's menstrual status. There is an IUD in good position. Myometrium: Unremarkable. Cervix: Unremarkable. OVARIES: Right: 3.9 x 2 x 1.7 cm Cyst or mass: Functional cysts are present. Left: 3.3 x 2.1 x 2.3 cm Cyst or mass: Functional cysts are present. DOPPLER: Color: Symmetric and uniform flow to both ovaries. No hyperemia. Duplex: Normal ovarian arterial waveforms visualized. CUL-DE-SAC: Free fluid: Afnr-rh-jqhjuhig amount of free fluid is seen in the cul-de-sac and adjacent to the right ovary. Other: None. IMPRESSION: 1. Normal sonographic appearance of the kidneys. 2. Normal-appearing uterus with endometrial stripe within normal limits. IUD in good position. 3. Unremarkable bilateral ovaries. 4. Small amount of free pelvic fluid. DATA REPOSITORY:
[2020-10-08 13:08] LABS: Abs Immature Grans 0.04 10^3/uL (0.0-0.06); Absolute Basophil Count 0.03 10^3/uL (0.0-0.2); Absolute Eosinophil Count 0.01 10^3/uL (0.0-0.7); Absolute Lymphocyte Count 0.86 10^3/uL (1.2-3.4); Absolute Monocyte Count 0.47 10^3/uL (0.1-0.8); Absolute Neutrophil Count 11.75 10^3/uL (1.2-6.7); Basophils % 0.2; Eosinophils % 0.1; HCT 44.4 % (36.0-46.0); HGB 15.3 g/dL (11.2-15.7); Immature Grans % 0.3; Lymphocytes % 6.5; MCH 29.5 pg (27.0-33.0); MCHC 34.5 % (32.0-36.0); MCV 85.5 fL (80-95); MPV 10.6 fL (8.0-11.0); Monocytes % 3.6; Neutrophils % 89.3; Nucleated RBC 0 %; Platelet Count 310 10^3/uL (130-400); RBC 5.19 10^6/uL (3.93-5.22); RDW 11.6 % (11.7-14.6); RDW-SD 35.9 fL; WBC 13.16 10^3/uL (4.4-10.8)
[2020-10-08] MEDS: Normal Saline 1,000 ML 1000 ML IV (13:11)
[2020-10-08 13:13] LABS: Bilirubin Negative (Negative); Blood Negative (Negative); Clarity Sl Cloudy (Clear); Glucose Negative (Negative); Ketones 80 mg/dL (Negative); Leukocyte Esterase Negative (Negative); Nitrite Negative (Negative); Specific Gravity >= 1.030 (1.005-1.025); Urobilinogen 0.2 EU/dL (Up TO 0.2)
[2020-10-08] MEDS: Ondansetron 4 MG/2 ML VIAL IVP (13:14)
[2020-10-08] MEDS: Ketorolac 30 MG/ML VIAL IVP (13:14)
[2020-10-08 13:21] LABS: ALT 30 U/L (14-59); AST 21 U/L (15-37); Albumin 4.6 g/dL (3.4-5.0); Alkaline Phosphatase 134 U/L (46-116); Anion Gap 13.5 mmol/L (3-11); BUN 11 mg/dL (7-18); Bilirubin, Total 0.9 mg/dL (0.2-1.0); CO2 23.5 mmol/L (21.0-32.0); CREATININE 0.7 mg/dL (0.55-1.02); Calcium 9.6 mg/dL (8.5-10.1); Chloride 105 mmol/L (98-107); Glucose 106 mg/dL (74-106); Lipase 72 U/L (73-393); Potassium 3.7 mmol/L (3.5-5.1); Sodium 142 mmol/L (136-145); Total Protein 7.6 g/dL (6.4-8.2)
[2020-10-08 13:28] LABS: Bacteria Many HPF (Negative); C & S Indicated? Yes; Casts Negative LPF (Negative); Crystals Negative HPF (Negative); Epithelial Cells Few HPF (Negative); Mucus Moderate (Negative); Other Cells Negative (Negative); RBC Negative HPF (0-2)
--- NOTE | 2020-10-08 13:37 | ED.GENADUL_ITS ---
Discharge Plan Disposition Patient Disposition: HOME Condition: Improving Discharge Details Clinical Impression: Chronic abdominal pain, Vomiting Primary Care Provider: Hyun Garcia ED Provider: Lilliana Maciel Home Meds and New Rx's Prescriptions: Continued Mirena 20 mcg/24 hours (5 yrs) 52 mg intrauterine device 1 device IY ONCE RF: 0 tretinoin 0.025 % cream 1 applic topical QHS Qty: 20 RF: 2 selenium sulfide 2.25 % shampoo 1 applic TP DAILY RF: 0 ketoconazole [Nizoral] 2 % shampoo 1 applic TP Q2W RF: 0 melatonin 10 mg tablet 10 mg PO HS PRNRF: 0 cbd 1 cap PO BID RF: 0 Discharge Instructions Instructions: Chronic Pain (ED), Acute Nausea and Vomiting (ED), Abdominal Pain (ED) Additional Instructions: Drink plenty of fluids and get plenty of rest. Alternate tylenol and motrin as needed and directed for pain. 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 You can also follow-up again with gynecology Dr. Garcia for reevaluation. Return immediately to the emergency department if you develop any worsening or new concerning symptoms. Discharge Data Discharge Date/Time-TO BE ENTERED AT DEPARTURE: 10/08/20 16:09 Discharge Physician: Lilliana Maciel Medical Decision Making 19-year-old female with a history of colon spasm per GI at [facility] presents for left lower quadrant abdominal pain consistent with her previous colon spasm in the past. Patient appears uncomfortable. Blood pressure and heart rate elevated. She is nontoxic. She is tender in the left quadrant. Urine test negative. Differential diagnosis includes ovarian cyst versus torsion, colitis, IBS, colon spasm, etc. discussed with mom that as patient had a normal CT abdomen and pelvis in March, and she is young, do not want to expose her to additional radiation and she is agreeable. As she feels that her symptoms are consistent with her previous colon spasm, will obtain screening labs, urinalysis and pelvic ultrasound. Will give Toradol and Zofran and reassess. [facility] records reviewed note that patient had an unremarkable MRCP and colonoscopy in the last few months potentially a functional bowel disorder or abdominal wall pain and recommended neuromodulators and the IBgard which she is taking prn. Review of records note that she was seen by Dr. Garcia for pelvic pain in the last year and was thought not to be related to [employer] at that time. Labs reviewed. White blood cell count 13. Anion gap 13. Urinalysis notes 3-5 WBCs negative leukocyte esterase, and negative nitrite. Urine culture sent. Pelvic ultrasound noted free fluid but no other acute findings. Patient reassessed and she feels much better and feels good to go home. As her pain is resolved, and patient appears nontoxic and comfortable, do not feel indication for CT imaging and mom and patient are agreeable and would rather hold on any other imaging at this time. Patient advised to follow-up with [facility] for reevaluation. Usual and customary return precautions given prior to discharge. Medical Records Medical records reviewed: Yes I reviewed the patient's medical records. Imaging Data Radiologic Study: Radiologist's impression: US PELVIS TRANSVAGINAL CLINICAL HISTORY: LLQ abd pain, vomiting, r/o torsion vs cyst. TECHNIQUE: Transabdominal and transvaginal pelvic ultrasound was performed using standard protocol. COMPARISON: US US PELVIS TRANSVAGINAL from 06/22/2019 FINDINGS: KIDNEYS: Kidneys are symmetric in size. No evidence of renal calculi. No evidence of hydronephrosis. No renal mass or cyst identified. UTERUS: Position: Retroverted. Size: 6.1 long by 4.0 AP by 4.3 transverse cm Endometrium: 0.2 cm. Normal for patient's menstrual status. There is an IUD in good position. Myometrium: Unremarkable. Cervix: Unremarkable. OVARIES: Right: 3.9 x 2 x 1.7 cm Cyst or mass: Functional cysts are present. Left: 3.3 x 2.1 x 2.3 cm Cyst or mass: Functional cysts are present. DOPPLER: Color: Symmetric and uniform flow to both ovaries. No hyperemia. Duplex: Normal ovarian arterial waveforms visualized. CUL-DE-SAC: Free fluid: [id number] amount of free fluid is seen in the cul-de-sac and adjacent to the right ovary. Other: None. IMPRESSION: 1. Normal sonographic appearance of the kidneys. 2. Normal-appearing uterus with endometrial stripe within normal limits. IUD in good position. 3. Unremarkable bilateral ovaries. 4. Small amount of free pelvic fluid. Lab Data Lab results reviewed: Yes I reviewed the patient's lab results. Labs: 10/08/20 13:00 Urine - Reflex from Ua Urine Culture - Final Gram Positive Lacey,Mixed Laboratory Tests Range/Units 10/08/20 10/08/20 10/08/20 12:28 12:28 13:00 WBC (4.4-10.8) 10^3/uL 13.16 H RBC (3.93-5.22) 10^6/uL 5.19 Hgb (11.2-15.7) g/dL 15.3 Hct (36.0-46.0) % 44.4 MCV (80-95) fL 85.5 MCH (27.0-33.0) pg 29.5 MCHC (32.0-36.0) % 34.5 RDW (11.7-14.6) % 11.6 L Plt Count (130-400) 10^3/uL 310 MPV (8.0-11.0) fL 10.6 Immature Gran % 0.3 Neutrophils % 89.3 Lymphocytes % 6.5 Monocytes % 3.6 Eosinophils % 0.1 Basophils % 0.2 Nucleated RBC % % 0 Absolute Neutrophils (1.2-6.7) 10^3/uL 11.75 H Absolute Lymphocytes (1.2-3.4) 10^3/uL 0.86 L Absolute Monocytes (0.1-0.8) 10^3/uL 0.47 Absolute Eosinophils (0.0-0.7) 10^3/uL 0.01 Absolute Basophils (0.0-0.2) 10^3/uL 0.03 Sodium (136-145) mmol/L 142 Potassium (3.5-5.1) mmol/L 3.7 Chloride (98-107) mmol/L 105 Carbon Dioxide (21.0-32.0) mmol/L 23.5 Anion Gap (3-11) mmol/L 13.5 H BUN (7-18) mg/dL 11 Creatinine (0.55-1.02) mg/dL 0.7 Estimated GFR/1.73 m2 (mL/min/1.73m2) >= 60.00 Glucose (74-106) mg/dL 106 Calcium (8.5-10.1) mg/dL 9.6 Total Bilirubin (0.2-1.0) mg/dL 0.9 AST (15-37) U/L 21 ALT (14-59) U/L 30 Alkaline Phosphatase (46-116) U/L 134 H Total Protein (6.4-8.2) g/dL 7.6 Albumin (3.4-5.0) g/dL 4.6 Lipase (73-393) U/L 72 Urine Color (Yellow) Yellow Urine Clarity (Clear) Sl Cloudy Urine pH (5-8) 6.0 Ur Specific [place] (1.005-1.025) >= 1.030 H Urine Protein (Negative) mg/dL Trace H Urine Ketones (Negative) mg/dL 80 H Urine Blood (Negative) Negative Urine Nitrite (Negative) Negative Urine Bilirubin (Negative) Negative Urine Urobilinogen (Up TO 0.2) EU/dL 0.2 Ur Leukocyte Esterase (Negative) Negative Urine RBC (0-2) HPF Negative Urine WBC (0-5) HPF 3-5 Ur Epithelial Cells (Negative) HPF Few Urine Crystals (Negative) HPF Negative Urine Bacteria (Negative) HPF Many Urine Casts (Negative) LPF Negative Urine Mucus (Negative) Moderate Urine Other (Negative) Negative Ur Culture Indicated? Yes Urine Glucose (Negative) mg/dL Negative HPI General Mode of arrival: ambulatory . Date/Time Provider Initiated Documentation: 10/08/20 12:38 . Limitations to Documentation: no limitations . Information obtained by: patient and family . HPI Narrative: Patient is a 19-year-old female with a history of colon spasm diagnosed by GI at [facility] presents for left lower quadrant abdominal pain since this morning consistent with her previous episodes of colon spasm. She states she has had similar pain over the past year but states this episode is more intense than previous. She describes it as intermittent, sharp and located in the left lower quadrant with radiation around to the left lower back. She states she takes over the counter IBgard as recommended by [facility] for this pain which she took today without relief. She admits to multiple episodes of vomiting this morning which mainly consisted of food and out bile. She states she had a normal bowel movement this morning. She states she has an IUD and denies any known . She denies any fever, new meds, new foods, urinary symptoms or vaginal bleeding. Related Data Home Medications Medication Instructions Recorded Confirmed cbd 1 cap PO BID 04/19/19 04/07/20 ketoconazole 2 % shampoo 1 applic TP Q2W ml 04/19/19 04/07/20 melatonin 10 mg tablet 10 mg PO HS PRN 04/19/19 04/07/20 selenium sulfide 2.25 % shampoo 1 applic TP DAILY 04/19/19 04/07/20 levonorgestrel 20 mcg/24 hours (6 1 device IY ONCE 05/18/19 04/07/20 yrs) 52 mg intrauterine device tretinoin 0.025 % topical cream 1 applic TOPICAL QHS #20 g 04/04/20 04/07/20 Previous Rx's Medication Instructions Recorded tretinoin 0.025 % topical cream 1 applic TOPICAL QHS #20 g 04/04/20 Allergies Allergy/AdvReac Type Severity Reaction Status Date / Time prochlorperazine Allergy Severe dystonic Verified 10/08/20 12:16 [From Compazine] reaction prochlorperazine edisylate Allergy Severe dystonic Verified 10/08/20 12:16 [From Compazine] reaction prochlorperazine maleate Allergy Severe dystonic Verified 10/08/20 12:16 [From Compazine] reaction amoxicillin [Amoxicillin] Allergy Mild Skin Rash Verified 10/08/20 12:16 General Stated Complaint: Abd Prob ONEIDA: 3 Review of Systems All systems reviewed & are unremarkable except as noted in HPI and below Constitutional Constitutional: Reports as per HPI, Denies chills and Denies fever(s) Eyes Eyes: Denies blurry vision ENT Ears, Nose, Mouth, and Throat: Denies dizziness, Denies sore throat and Denies throat swelling Cardiovascular Cardiovascular: Denies chest pain and Denies dyspnea Respiratory Respiratory: Denies cough and Denies dyspnea Gastrointestinal Gastrointestinal: Reports abdominal pain, Denies diarrhea and Reports vomiting Genitourinary Genitourinary: Denies hematuria and Denies dysuria Musculoskeletal Musculoskeletal: Denies back pain and Denies numbness Integumentary/Breasts Skin/Breast: Denies lesions and Denies rash Neurologic Neurologic: Denies dizziness, Denies localized weakness and Denies numbness Allergic/Immunologic Allergic/Immunologic: Denies throat swelling [facility] Medical History Acne vulgaris Allergic rhinitis Anorexia nervosa IUD (intrauterine device) in place Inserted 04/2019-Mirena Numbness and tingling of foot Raynauds phenomenon Seborrhea capitis Sinusitis Weight loss Surgical History Tonsillectomy Family History Mother Endometriosis Father Thyroid disease Grandmother Endometriosis Maternal Uncle Non-Hodgkin lymphoma Maternal Aunt Diabetes Social History Smoking/Tobacco Use Status: Current every day Tobacco Type: cigarettes Smoking risk assessment performed?: Yes Alcohol Intake: current Alcohol Intake frequency: holidays/special occasions only Drug use: Never Substance use type: does not use Household members: other Details: Harry Sullivan Housing: other Details: Student at [employer] Number of Children: 0 Communication Needs: None Education Level: college Details: 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 Interested in substance abuse Sexually active: Yes Do you feel safe at home: Yes Do you feel safe in your relationship?: Yes Exam Const General: cooperative, healthy appearing, uncomfortable and no acute distress HENMT Head: normal to inspection Face and sinus: normal facial exam Eyes General: appearance normal, both eyes and all related structures EOM: EOM intact bilaterally Neck Neck: normal visual inspection and No submandibular swelling Lymphatic: no lymphadenopathy noted Chest Chest: normal inspection of the chest and no tenderness Resp Effort & Inspection: normal respiratory effort and able to speak in complete sentences Auscultation: clear to auscultation bilaterally Cardio Rate: regular rate Rhythm: regular rhythm GI Inspection: normal to inspection Palpation: soft, not firm, not rigid and tender in the LLQ Auscultation: normal bowel sounds Skin General skin exam: no rashes or lesions noted Neuro General: patient alert, patient awake and patient oriented x3 Cognition: normal cognition Speech: speech normal Motor: muscle tone normal throughout Sensory Exam: no sensory deficits noted Extrem General: normal to inspection, full ROM, capillary refill normal, no calf tenderness bilaterally and no edema Psych Appearance: grossly normal Mental Status: mental status grossly normal Speech and Movement: speech and movement normal Affect: normal affect Course Vital Signs Vital signs: Vital Signs Temperature 98.6 F 10/08/20 12:10 Pulse 111 H 10/08/20 12:10 Respiratory Rate 22 10/08/20 12:10 Blood Pressure 145/100 H 10/08/20 12:10 Pulse Oximetry 100 10/08/20 12:10 Temperature 98.6 F 10/08/20 12:10 Temperature Source Temporal Artery Scan 10/08/20 12:10 Pulse 111 H 10/08/20 12:10 Respiratory Rate 22 10/08/20 12:10 Respiratory Effort Non-Labored 10/08/20 12:13 Blood Pressure 145/100 H 10/08/20 12:10 Blood Pressure Position Sitting 10/08/20 12:10 Pulse Oximetry 100 10/08/20 12:10 Oxygen Delivery Method Room Air 10/08/20 12:10 Oxygen Flow Rate 0 10/08/20 12:10 Pain Level 9 10/08/20 12:10 Lab/Test Results Lab/Test Results: 10/08/20 13:00 Urine - Reflex from Ua Urine Culture - Pending Laboratory Tests Range/Units 10/08/20 10/08/20 10/08/20 12:28 12:28 13:00 WBC (4.4-10.8) 10^3/uL 13.16 H RBC (3.93-5.22) 10^6/uL 5.19 Hgb (11.2-15.7) g/dL 15.3 Hct (36.0-46.0) % 44.4 MCV (80-95) fL 85.5 MCH (27.0-33.0) pg 29.5 MCHC (32.0-36.0) % 34.5 RDW (11.7-14.6) % 11.6 L Plt Count (130-400) 10^3/uL 310 MPV (8.0-11.0) fL 10.6 Immature Gran % 0.3 Neutrophils % 89.3 Lymphocytes % 6.5 Monocytes % 3.6 Eosinophils % 0.1 Basophils % 0.2 Nucleated RBC % % 0 Absolute Neutrophils (1.2-6.7) 10^3/uL 11.75 H Absolute Lymphocytes (1.2-3.4) 10^3/uL 0.86 L Absolute Monocytes (0.1-0.8) 10^3/uL 0.47 Absolute Eosinophils (0.0-0.7) 10^3/uL 0.01 Absolute Basophils (0.0-0.2) 10^3/uL 0.03 Sodium (136-145) mmol/L 142 Potassium (3.5-5.1) mmol/L 3.7 Chloride (98-107) mmol/L 105 Carbon Dioxide (21.0-32.0) mmol/L 23.5 Anion Gap (3-11) mmol/L 13.5 H BUN (7-18) mg/dL 11 Creatinine (0.55-1.02) mg/dL 0.7 Estimated GFR/1.73 m2 (mL/min/1.73m2) >= 60.00 Glucose (74-106) mg/dL 106 Calcium (8.5-10.1) mg/dL 9.6 Total Bilirubin (0.2-1.0) mg/dL 0.9 AST (15-37) U/L 21 ALT (14-59) U/L 30 Alkaline Phosphatase (46-116) U/L 134 H Total Protein (6.4-8.2) g/dL 7.6 Albumin (3.4-5.0) g/dL 4.6 Lipase (73-393) U/L 72 Urine Color (Yellow) Yellow Urine Clarity (Clear) Sl Cloudy Urine pH (5-8) 6.0 Ur Specific [place] (1.005-1.025) >= 1.030 H Urine Protein (Negative) mg/dL Trace H Urine Ketones (Negative) mg/dL 80 H Urine Blood (Negative) Negative Urine Nitrite (Negative) Negative Urine Bilirubin (Negative) Negative Urine Urobilinogen (Up TO 0.2) EU/dL 0.2 Ur Leukocyte Esterase (Negative) Negative Urine RBC (0-2) HPF Negative Urine WBC (0-5) HPF 3-5 Ur Epithelial Cells (Negative) HPF Few Urine Crystals (Negative) HPF Negative Urine Bacteria (Negative) HPF Many Urine Casts (Negative) LPF Negative Urine Mucus (Negative) Moderate Urine Other (Negative) Negative Ur Culture Indicated? Yes Urine Glucose (Negative) mg/dL Negative POC- Test(urine) Negative
[2020-10-08] MEDS: Ondansetron O.D.T. 4 MG TABEF PO (15:58)
[2020-10-08 15:59] VITALS: BP 112/49; PULSE 65; O2SAT 99
== END 2020-10-08 16:09 | disposition home or self-care (01) ==
PROVIDERS: Emergency Provider Physician Assistant; PCP Family Medicine
DX: R10.32 Left lower quadrant pain (principal); G89.29 Other chronic pain; R11.2 Nausea with vomiting, unspecified
CPT/HCPCS: 36415; 80053; 81025; 83690; 96361; 96374; 96375; 99284; 76830; 76856; 81003; 81015; 85025; 87086; 99285; J1885; J2405

== ENCOUNTER 2020-12-02 17:48 | Emergency (ER) | payer OTHER, SELFPAY ==
[2020-12-02 17:55] VITALS: BP 133/78; PULSE 86; TEMP 36.9; O2SAT 100
--- NOTE | 2020-12-02 17:55 | W.ED.GENAD ---
Discharge Plan Disposition Patient Disposition: HOME Condition: Improving Discharge Details Clinical Impression: Chronic abdominal pain Primary Care Provider: Hyun Garcia ED Provider: Lilliana Maciel Home Meds and New Rx's Prescriptions: Continued Mirena 20 mcg/24 hours (5 yrs) 52 mg intrauterine device 1 device IY ONCE RF: 0 tretinoin 0.025 % cream 1 applic topical QHS Qty: 20 RF: 2 selenium sulfide 2.25 % shampoo 1 applic TP DAILY RF: 0 ketoconazole [Nizoral] 2 % shampoo 1 applic TP Q2W RF: 0 melatonin 10 mg tablet 10 mg PO HS PRNRF: 0 cbd 1 cap PO BID RF: 0 Discharge Instructions Instructions: Chronic Abdominal Pain (ED) Additional Instructions: Drink plenty of fluids and get plenty of rest. Alternate tylenol and motrin as needed and directed for pain. Call your primary care doctor tomorrow to schedule a follow-up appointment for reevaluation. Follow-up with [facility] gastroenterology for further evaluation. Return immediately to the emergency department if you develop any worsening or new concerning symptoms. Discharge Data Discharge Physician: Lilliana Maciel Medical Decision Making 20-year-old female with a history of colon spasm causing chronic abdominal pain presents with severe abdominal pain that started 1 hour ago. She had a pelvic ultrasound in September which was unremarkable. She had a CT abdomen and pelvis in March which was negative for acute findings. Labs obtained on arrival and unremarkable. Patient appears uncomfortable, and appears to have intermittent episodes of pain during my evaluation. Her abdomen is soft and nontender. Patient states she would prefer not to have any additional imaging as this does feel consistent with her usual colon spasms. She would like a dose of Toradol which is helped her in the past. We will also give IV Tylenol, IV Decadron, fluids and reassess. Patient declined the IV Tylenol and Decadron. Patient reassessed after Toradol and felt much better and is requesting to go home. She is advised to call her PCP and [facility] gastroenterology for follow-up. She states she is thinking of having her primary care doctor give her Toradol as needed for colon spasm as she does not want to take the neuropathic medications that were recommended by [facility] GI. Usual and customary return precautions given prior to discharge. Medical Records Medical records reviewed: Yes I reviewed the patient's medical records. Lab Data Lab results reviewed: Yes I reviewed the patient's lab results. Labs: Laboratory Tests Range/Units 12/02/20 12/02/20 12/02/20 18:05 18:10 18:10 WBC (4.4-10.8) 10^3/uL 9.16 RBC (3.93-5.22) 10^6/uL 4.89 Hgb (11.2-15.7) g/dL 14.1 Hct (36.0-46.0) % 42.6 MCV (80-95) fL 87.1 MCH (27.0-33.0) pg 28.8 MCHC (32.0-36.0) % 33.1 RDW (11.7-14.6) % 11.6 L Plt Count (130-400) 10^3/uL 261 MPV (8.0-11.0) fL 10.5 Immature Gran % 0.3 Neutrophils % 54.8 Lymphocytes % 36.5 Monocytes % 7.5 Eosinophils % 0.7 Basophils % 0.2 Nucleated RBC % % 0 Absolute Neutrophils (1.2-6.7) 10^3/uL 5.02 Absolute Lymphocytes (1.2-3.4) 10^3/uL 3.34 Absolute Monocytes (0.1-0.8) 10^3/uL 0.69 Absolute Eosinophils (0.0-0.7) 10^3/uL 0.06 Absolute Basophils (0.0-0.2) 10^3/uL 0.02 Sodium (136-145) mmol/L 142 Potassium (3.5-5.1) mmol/L 3.1 L Chloride (98-107) mmol/L 104 Carbon Dioxide (21.0-32.0) mmol/L 27.3 Anion Gap (3-11) mmol/L 10.7 BUN (7-18) mg/dL 13 Creatinine (0.55-1.02) mg/dL 0.9 Estimated GFR/1.73 m2 (mL/min/1.73m2) >= 60.00 Glucose (74-106) mg/dL 111 H Calcium (8.5-10.1) mg/dL 9.5 Total Bilirubin (0.2-1.0) mg/dL 0.5 AST (15-37) U/L 24 ALT (14-59) U/L 32 Alkaline Phosphatase (46-116) U/L 149 H Total Protein (6.4-8.2) g/dL 7.9 Albumin (3.4-5.0) g/dL 4.8 Lipase (73-393) U/L 100 Urine Color (Yellow) Yellow Urine Clarity (Clear) Clear Urine pH (5-8) 6.0 Ur Specific [place] (1.005-1.025) 1.025 Urine Protein (Negative) mg/dL Negative Urine Ketones (Negative) mg/dL Negative Urine Blood (Negative) Negative Urine Nitrite (Negative) Negative Urine Bilirubin (Negative) Negative Urine Urobilinogen (Up TO 0.2) EU/dL 0.2 Ur Leukocyte Esterase (Negative) Negative Urine Glucose (Negative) mg/dL Negative HPI General Mode of arrival: ambulatory. Date/Time Provider Initiated Documentation: 12/02/20 17:55. Limitations to Documentation: no limitations. Information obtained by: patient. HPI Narrative: Patient is a 20-year-old female with a history of colon spasm which she states was diagnosed by [facility] gastroenterology within the past year after an unremarkable colonoscopy presents with left lower quadrant abdominal pain consistent with her usual colon spasms. She states she was recommended to take IBgard for her chronic intermittent abdominal pain and states she took it this morning but this did not prevent her colon spasm attack this evening. She has been offered neuropathic pain prescriptions for her abdominal pain but states she has declined to take them as she does not want to be on neurologic medication. She states this started 1 hour ago. She states she usually does not have any alleviating or aggravating factors. She states this usually occurs at random. She has not taken medication prior to arrival. She denies any fever, nausea, vomiting, diarrhea or urinary symptoms. Related Data Home Medications Medication Instructions Recorded Confirmed cbd 1 cap PO BID 04/19/19 04/07/20 ketoconazole 2 % shampoo 1 applic TP Q2W ml 04/19/19 04/07/20 melatonin 10 mg tablet 10 mg PO HS PRN 04/19/19 04/07/20 selenium sulfide 2.25 % shampoo 1 applic TP DAILY 04/19/19 04/07/20 levonorgestrel 20 mcg/24 hours (6 1 device IY ONCE 05/18/19 04/07/20 yrs) 52 mg intrauterine device tretinoin 0.025 % topical cream 1 applic TOPICAL QHS #20 g 04/04/20 04/07/20 Previous Rx's Medication Instructions Recorded tretinoin 0.025 % topical cream 1 applic TOPICAL QHS #20 g 04/04/20 Allergies Allergy/AdvReac Type Severity Reaction Status Date / Time prochlorperazine Allergy Severe dystonic Verified 12/02/20 17:57 [From Compazine] reaction prochlorperazine edisylate Allergy Severe dystonic Verified 12/02/20 17:57 [From Compazine] reaction prochlorperazine maleate Allergy Severe dystonic Verified 12/02/20 17:57 [From Compazine] reaction amoxicillin [Amoxicillin] Allergy Mild Skin Rash Verified 12/02/20 17:57 General ONEIDA: 3 Review of Systems All systems reviewed & are unremarkable except as noted in HPI and below Constitutional Constitutional: Reports as per HPI, Denies chills and Denies fever(s) Eyes Eyes: Denies blurry vision ENT Ears, Nose, Mouth, and Throat: Denies dizziness, Denies sore throat and Denies throat swelling Cardiovascular Cardiovascular: Denies chest pain and Denies dyspnea Respiratory Respiratory: Denies cough and Denies dyspnea Gastrointestinal Gastrointestinal: Reports abdominal pain, Denies diarrhea and Denies vomiting Genitourinary Genitourinary: Denies hematuria and Denies dysuria Musculoskeletal Musculoskeletal: Denies back pain and Denies numbness Integumentary/Breasts Skin/Breast: Denies lesions and Denies rash Neurologic Neurologic: Denies dizziness, Denies localized weakness and Denies numbness Allergic/Immunologic Allergic/Immunologic: Denies throat swelling [facility] Medical History Acne vulgaris Allergic rhinitis Anorexia nervosa IUD (intrauterine device) in place Inserted 04/2019-Mirena Numbness and tingling of foot Raynauds phenomenon Seborrhea capitis Sinusitis Weight loss Surgical History Tonsillectomy Family History Mother Endometriosis Father Thyroid disease Grandmother Endometriosis Maternal Uncle Non-Hodgkin lymphoma Maternal Aunt Diabetes Social History (Reviewed 04/07/20 @ 20:01 by Ysabel Heredia Smoking/Tobacco Use Status: Current every day Tobacco Type: cigarettes Smoking risk assessment performed?: Yes Alcohol Intake: current Alcohol Intake frequency: holidays/special occasions only Drug use: Never Substance use type: does not use Household members: other Details: Harry Sullivan Housing: other Details: Student at [employer] Number of Children: 0 Communication Needs: None Education Level: college Details: 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 Interested in substance abuse Sexually active: Yes Do you feel safe at home: Yes Do you feel safe in your relationship?: Yes Exam Const General: cooperative, healthy appearing and no acute distress HENMT Head: normal to inspection Face and sinus: normal facial exam Eyes General: appearance normal, both eyes and all related structures EOM: EOM intact bilaterally Neck Neck: normal visual inspection and No submandibular swelling Lymphatic: no lymphadenopathy noted Chest Chest: normal inspection of the chest and no tenderness Resp Effort & Inspection: normal respiratory effort and able to speak in complete sentences Auscultation: clear to auscultation bilaterally Cardio Rate: regular rate Rhythm: regular rhythm GI Inspection: normal to inspection Palpation: soft, not firm, not rigid and nontender Auscultation: normal bowel sounds Skin General skin exam: no rashes or lesions noted Neuro General: patient alert, patient awake and patient oriented x3 Cognition: normal cognition Speech: speech normal Motor: muscle tone normal throughout Sensory Exam: no sensory deficits noted Extrem General: normal to inspection, full ROM, capillary refill normal, no calf tenderness bilaterally and no edema Psych Appearance: grossly normal Mental Status: mental status grossly normal Speech and Movement: speech and movement normal Affect: normal affect
--- NOTE | 2020-12-02 18:00 | RT.EKG_ITS ---
APPROVED REPORT Exam: Resting ECG Reason for Exam: chest pain Patient Location: E HR:80 bpm ECG Measurements Heart Rate 80 AXIS OH 138 P 76 QRSd 81 QRS 85 QT 411 T 51 QTc 474 Conclusion Sinus rhythm...normal P axis, V-rate 60- 99. Sinus. Artifact from pt movement. No STEMI. I have reviewed and interpreted ECG and agree with software generated interpretation.
[2020-12-02 18:22] LABS: Abs Immature Grans 0.03 10^3/uL (0.0-0.06); Absolute Basophil Count 0.02 10^3/uL (0.0-0.2); Absolute Eosinophil Count 0.06 10^3/uL (0.0-0.7); Absolute Lymphocyte Count 3.34 10^3/uL (1.2-3.4); Absolute Monocyte Count 0.69 10^3/uL (0.1-0.8); Absolute Neutrophil Count 5.02 10^3/uL (1.2-6.7); Basophils % 0.2; Eosinophils % 0.7; HCT 42.6 % (36.0-46.0); HGB 14.1 g/dL (11.2-15.7); Immature Grans % 0.3; Lymphocytes % 36.5; MCH 28.8 pg (27.0-33.0); MCHC 33.1 % (32.0-36.0); MCV 87.1 fL (80-95); MPV 10.5 fL (8.0-11.0); Monocytes % 7.5; Neutrophils % 54.8; Nucleated RBC 0 %; Platelet Count 261 10^3/uL (130-400); RBC 4.89 10^6/uL (3.93-5.22); RDW 11.6 % (11.7-14.6); RDW-SD 37.2 fL; WBC 9.16 10^3/uL (4.4-10.8)
[2020-12-02 18:29] LABS: Bilirubin Negative (Negative); Blood Negative (Negative); Clarity Clear (Clear); Glucose Negative (Negative); Ketones Negative (Negative); Leukocyte Esterase Negative (Negative); Nitrite Negative (Negative); Specific Gravity 1.025 (1.005-1.025); Urobilinogen 0.2 EU/dL (Up TO 0.2)
[2020-12-02 18:35] VITALS: BP 134/76; PULSE 61; RESP 18; TEMP 36.9; O2SAT 100
[2020-12-02 18:35] LABS: ALT 32 U/L (14-59); AST 24 U/L (15-37); Albumin 4.8 g/dL (3.4-5.0); Alkaline Phosphatase 149 U/L (46-116); Anion Gap 10.7 mmol/L (3-11); BUN 13 mg/dL (7-18); Bilirubin, Total 0.5 mg/dL (0.2-1.0); CO2 27.3 mmol/L (21.0-32.0); CREATININE 0.9 mg/dL (0.55-1.02); Calcium 9.5 mg/dL (8.5-10.1); Chloride 104 mmol/L (98-107); Glucose 111 mg/dL (74-106); Lipase 100 U/L (73-393); Potassium 3.1 mmol/L (3.5-5.1); Sodium 142 mmol/L (136-145); Total Protein 7.9 g/dL (6.4-8.2)
[2020-12-02] MEDS: Potassium Chloride 20 MEQ TABCR 40 MEQ PO (18:45)
[2020-12-02] MEDS: Ketorolac 30 MG/ML VIAL IVP (19:05)
[2020-12-02] MEDS: Normal Saline 1,000 ML 1000 ML IV (19:09)
[2020-12-02] MEDS: Ondansetron 4 MG/2 ML VIAL IVP (19:24)
[2020-12-02 20:49] VITALS: BP 115/74; PULSE 60; RESP 20; TEMP 36.9; O2SAT 98
== END 2020-12-02 20:50 | disposition home or self-care (01) ==
PROVIDERS: Emergency Provider Physician Assistant; PCP Family Medicine
DX: R10.9 Unspecified abdominal pain (principal); G89.29 Other chronic pain
CPT/HCPCS: 36415; 80053; 81025; 83690; 93005; 96361; 96374; 96375; 99284; 81003; 85025; 93010; J1885; J2405

== ENCOUNTER 2020-12-16 17:18 | Outpatient (REF) | payer OTHER, SELFPAY ==
[2020-12-16 15:13] LABS: Anion Gap 11.8 mmol/L (3-11); BUN 11 mg/dL (7-18); CO2 24.2 mmol/L (21.0-32.0); CREATININE 0.8 mg/dL (0.55-1.02); Calcium 9.2 mg/dL (8.5-10.1); Chloride 105 mmol/L (98-107); Glucose 95 mg/dL (74-106); Magnesium 1.9 mg/dL (1.8-2.4); Potassium 4.1 mmol/L (3.5-5.1); Sodium 141 mmol/L (136-145); TSH (W/Ref FT4) 0.92 uIU/mL (0.36-3.74)
[2020-12-16 17:28] LABS: PHOSPHORUS 4.3 mg/dL (2.6-4.7)
[2020-12-17 10:33] LABS: Parathyroid Hormone,Intact 29 pg/mL (19-88)
== END 2020-12-16 17:19 | disposition home or self-care (01) ==
LOC: NCHCN 17:18
PROVIDERS: PCP Family Medicine; Visit Provider Family Medicine
DX: R74.8 Abnormal levels of other serum enzymes (principal); R00.2 Palpitations
CPT/HCPCS: 80048; 82306; 83735; 83970; 84100; 84443

== ENCOUNTER 2020-12-24 01:46 | Outpatient (RCR) | payer OTHER, SELFPAY ==
--- NOTE | 2020-12-24 09:45 | HOLTER_ITS ---
APPROVED REPORT Conclusion This is a 48-hour Holter monitor ordered for palpitations Predominant rhythm is sinus with an average heart rate of 75. Minimum was 48, maximum 147 3 isolated PVCs were seen There were a total of 36 atrial premature beats There was no atrial fibrillation, no high-grade AV block, no pauses greater than 3 seconds Patient symptoms were reported. All corresponded to sinus rhythm with rates ranging from 57-92, none corresponding with any dysrhythmia
== END 2021-01-12 23:59 | disposition home or self-care (01) ==
LOC: RT 01:46
PROVIDERS: PCP Family Medicine; Visit Provider Family Medicine
DX: R00.2 Palpitations (principal); I49.3 Ventricular premature depolarization; I49.1 Atrial premature depolarization
CPT/HCPCS: 93225; 93226

== ENCOUNTER 2021-04-08 15:27 | Outpatient (REF) | payer OTHER, SELFPAY ==
[2021-04-09 23:23] LABS: COVID-19 RT-PCR UVMMC Result Negative (Negative)
== END 2021-04-08 15:28 | disposition home or self-care (01) ==
LOC: NCHCN 15:27
PROVIDERS: PCP Family Medicine; Visit Provider Family Medicine
DX: Z20.822 Contact with and (suspected) exposure to COVID-19 (principal)
CPT/HCPCS: U0003

== ENCOUNTER 2021-05-14 01:40 | Outpatient (CLI) | payer OTHER, SELFPAY ==
[2021-05-14 14:15] LABS: PHOSPHORUS 4.2 mg/dL (2.6-4.7); TSH (W/Ref FT4) 0.72 uIU/mL (0.36-3.74)
[2021-05-15 05:43] LABS: Vitamin D 25 Total 51.8 ng/mL (30-100)
[2021-05-15 10:55] LABS: Parathyroid Hormone,Intact 29 pg/mL (19-88)
== END 2021-05-14 01:41 | disposition home or self-care (01) ==
LOC: LBO 01:40
PROVIDERS: PCP Family Medicine; Visit Provider Family Medicine
DX: R74.8 Abnormal levels of other serum enzymes (principal)
CPT/HCPCS: 36415; 82306; 83970; 84100; 84443

== ENCOUNTER 2021-05-16 03:51 | Outpatient (CLI) | payer SELFPAY ==
[2021-05-19 13:25] LABS: TB Interpretation Negative (Negative); TB1 Ag minus Nil 0.02 IU/ml
== END 2021-05-16 03:52 | disposition home or self-care (01) ==
LOC: LBO 03:51
PROVIDERS: PCP Family Medicine; Visit Provider Family Medicine
DX: Z11.1 Encounter for screening for respiratory tuberculosis (principal)
CPT/HCPCS: 86480

== ENCOUNTER 2022-07-29 10:39 | Outpatient (REF) | payer OTHER, SELFPAY ==
[2022-07-29 15:54] LABS: HCT 41.6 % (36.0-46.0); MCH 29.1 pg (27.0-33.0); MCHC 33.7 % (32.0-36.0); MCV 87 fL (80-95); MPV 11.6 fL (8.0-11.0); Platelet Count 226 10^3/uL (130-400); RBC 4.81 10^6/uL (3.93-5.22); RDW 11.7 % (11.7-14.6); RDW-SD 37.1 fL
[2022-07-29 16:22] LABS: ALT 24 U/L (14-59); AST 18 U/L (15-37); Albumin 4.4 g/dL (3.4-5.0); Alkaline Phosphatase 134 U/L (46-116); Anion Gap 9.1 mmol/L (3-11); BUN 16 mg/dL (7-18); Bilirubin, Total 0.7 mg/dL (0.2-1.0); CO2 27.9 mmol/L (21.0-32.0); CREATININE 0.9 mg/dL (0.55-1.02); Calcium 9.4 mg/dL (8.5-10.1); Chloride 104 mmol/L (98-107); Estimated GFR 92.12 (mL/min/1.73m2); GGT 29 U/L (5-55); Glucose 93 mg/dL (74-106); Potassium 4.4 mmol/L (3.5-5.1); Sodium 141 mmol/L (136-145); TSH (W/Ref FT4) 1.08 uIU/mL (0.36-3.74); Total Protein 7.1 g/dL (6.4-8.2)
[2022-07-29 17:53] LABS: Vitamin D 25 Total 37.7 ng/mL (30-100)
== END 2022-07-29 10:40 | disposition home or self-care (01) ==
LOC: NCHCN 10:39
PROVIDERS: PCP Family Medicine; Visit Provider Family Medicine
DX: F41.1 Generalized anxiety disorder (principal); F50.00 Anorexia nervosa, unspecified; R74.8 Abnormal levels of other serum enzymes; I73.00 Raynaud's syndrome without gangrene; Z83.49 Family history of other endocrine, nutritional and metabolic diseases
CPT/HCPCS: 80053; 82306; 85027; 82977; 84443

== ENCOUNTER 2023-01-01 21:51 | Outpatient (REF) | payer OTHER, SELFPAY | END 2023-01-01 21:52 | disposition home or self-care (01) | LOC: NCHCN 21:51 | PROVIDERS: PCP Family Medicine; Visit Provider Family Medicine | DX: N30.00 Acute cystitis without hematuria (principal); R82.89 Other abnormal findings on cytological and histological examination of urine; B96.20 Unspecified Escherichia coli [E. coli] as the cause of diseases classified elsewhere | CPT/HCPCS: 87077; 87086; 87186 ==

== ENCOUNTER 2023-02-01 22:19 | Outpatient (REF) | payer OTHER, SELFPAY | END 2023-02-01 22:20 | disposition home or self-care (01) | LOC: NCHCN 22:19 | PROVIDERS: PCP Family Medicine; Visit Provider Family Medicine | DX: R30.0 Dysuria (principal) | CPT/HCPCS: 87086 ==

== ENCOUNTER 2023-08-03 13:27 | Outpatient (CLI) | payer BC, SELFPAY ==
[2023-08-03 16:47] LABS: HCG Quant, Pregnancy 5113 mIU/mL (1-3)
== END 2023-08-03 13:28 | disposition home or self-care (01) ==
LOC: LBO 08-04 13:28
PROVIDERS: PCP Family Medicine; Visit Provider Obstetrics & Gynecology
DX: O26.859 Spotting complicating pregnancy, unspecified trimester (principal)
CPT/HCPCS: 36415; 84702

== ENCOUNTER 2023-08-05 05:03 | Outpatient (CLI) | payer BC, SELFPAY ==
[2023-08-05 13:22] LABS: HCG Quant, Pregnancy 7745 mIU/mL (1-3)
== END 2023-08-05 05:04 | disposition home or self-care (01) ==
LOC: LBO 05:03
PROVIDERS: PCP Family Medicine; Visit Provider Obstetrics & Gynecology
DX: O26.851 Spotting complicating pregnancy, first trimester (principal); Z3A.01 Less than 8 weeks gestation of pregnancy
CPT/HCPCS: 36415; 84702

== ENCOUNTER 2023-08-20 15:11 | Outpatient (CLI) | payer BC, SELFPAY | END 2023-08-20 15:12 | disposition home or self-care (01) | LOC: LBO 15:11 | PROVIDERS: PCP Family Medicine; Visit Provider Advanced Practice Midwife | DX: O20.0 Threatened abortion (principal) | CPT/HCPCS: 36415; 86850; 86900; 86901; 84702 ==

== ENCOUNTER 2023-08-30 05:54 | Outpatient (CLI) | payer BC, SELFPAY ==
[2023-08-30 16:23] LABS: HCT 39.8 % (36.0-46.0); HGB 13.4 g/dL (11.2-15.7); MCH 28.9 pg (27.0-33.0); MCHC 33.7 % (32.0-36.0); MCV 86 fL (80-95); MPV 9.8 fL (8.0-11.0); Platelet Count 268 10^3/uL (130-400); RBC 4.64 10^6/uL (3.93-5.22); RDW 12.5 % (11.7-14.6); RDW-SD 39.1 fL; WBC 10.14 10^3/uL (4.4-10.8)
[2023-08-30 17:24] LABS: BUN 12 mg/dL (7-18); CREATININE 0.9 mg/dL (0.55-1.02); Calcium 9.4 mg/dL (8.5-10.1); Estimated GFR 91.55 (mL/min/1.73m2); Glucose 88 mg/dL (74-106)
[2023-08-30 17:34] LABS: Anion Gap 7.4 mmol/L (3-11); CO2 27.6 mmol/L (21.0-32.0); Chloride 102 mmol/L (98-107); Potassium 3.6 mmol/L (3.5-5.1); Sodium 137 mmol/L (136-145)
== END 2023-08-30 05:55 | disposition home or self-care (01) ==
LOC: LBO 05:54
PROVIDERS: PCP Family Medicine; Visit Provider Obstetrics & Gynecology Gynecology
DX: O02.1 Missed abortion (principal)
CPT/HCPCS: 36415; 80048; 85027; 86850; 86900; 86901

== ENCOUNTER 2023-08-31 06:02 | Day surgery (SDC) | payer BC, SELFPAY ==
[2023-08-31] VITALS (13 sets, daily range): BP systolic 108–138; BP diastolic 53–98; PULSE 51–94; RESP 13–97; TEMP 36.5–37.2; O2SAT 95–100; BMI 22.9
--- NOTE | 2023-08-31 06:42 | ANES.PREOP_ITS ---
General Info Date of Service Date Performed: 08/31/23 Height: 5 ft 3 in Weight: 58.8 kg Body Mass Index (BMI): 22.9 Surgical Procedure: Operation Date: 08/31/23 07:40 Proposed Procedure Side Surgeon p Suction D+C Yesenia Garcia MD Meds Allergies and Home Medications Allergies Allergy/AdvReac Type Severity Reaction Status Date / Time prochlorperazine edisylate Allergy Severe dystonic Verified 08/31/23 06:26 [From Compazine] reaction amoxicillin [Amoxicillin] Allergy Mild Skin Rash Verified 08/31/23 06:26 Home Medication Medication Instructions Recorded probiotic 1 tab PO DAILY 10/30/22 sertraline 50 mg tablet 50 mg PO DAILY 10/30/22 melatonin 3 mg capsule 3 mg PO HS PRN 08/03/23 hydroxyzine HCl 25 mg tablet 25 mg PO QHS PRN 08/23/23 ondansetron 4 mg disintegrating 4 mg PO Q8H 08/23/23 tablet vit no.95-ferrous 1 tab PO DAILY 08/30/23 fumarate 28 mg-folic acid 800 mcg tablet () Current Visit Medications: Current Medications Generic Name Dose Route Start Last Admin Trade Name Freq PRN Reason Stop Dose Admin Ringer's Solution 1,000 mls @ 125 mls/hr 08/31/23 06:00 IV 08/31/23 23:59 INFUSION EL Doxycycline Hyclate 100 mg/ 100 mls @ 100 mls/hr 08/31/23 06:00 Sodium Chloride IVPB 08/31/23 23:59 PREOP EL IV Miscellaneous Supplies 1 each 08/31/23 06:00 Iv Access IV 08/31/23 23:59 DIRECTED EL Sodium Chloride 0 ml 08/31/23 06:00 Normal Saline Flush 10 Ml Syr IV 08/31/23 23:59 PRN PRN Sodium Chloride 0 ml 08/31/23 06:00 Normal Saline 10 Ml Vial IJ 08/31/23 23:59 DIRECTED PRN Sterile Water 0 ml 08/31/23 06:00 Water,Injection,Sterile 10 Ml Vial IJ 08/31/23 23:59 DIRECTED PRN PFSH Active Problems Active Problems: Problem Status Onset Code Preop examination Z01.818 Missed O02.1 with inconclusive viability, fetus 1 O36.80X1 Anxiety F41.9 Medical History Medical History Threatened in early Change in bowel habit Infrequent colicky, crampy left lower quadrant pain associated with loose stool Acne vulgaris Vomiting Chronic abdominal pain Lipoma of forehead Allergic rhinitis Numbness and tingling of foot Anorexia nervosa Seborrhea capitis Raynauds phenomenon Sinusitis Surgical History Surgical History S/P excision of lipoma H/O colonoscopy 2020 [place] teeth extracted Tonsillectomy Tobacco Smoking/Tobacco Use Status: Never Alcohol Alcohol Intake: current Alcohol intake frequency: holidays/special occasions only Substance Use Substance use: Never Substance use type: does not use Prental History History 1 Para 0 Hx # Term Pregnancies 0 Multiple births 0 Hx # Pregnancies 0 Ectopic pregnancies 0 AB induced 0 Hx Number of Living Children 0 AB spontaneous 0 Vital Signs and Lab Results Vital Signs Most Recent Vital Signs in EMR: Most Recent Vital Signs Temp Pulse Resp BP Pulse Ox 36.5 C 72 16 124/74 100 08/31/23 06:17 08/31/23 06:17 08/31/23 06:17 08/31/23 06:17 08/31/23 06:17 Lab Results Blood Type / Crossmatch: Antibody Screen NEGATIVE 08/30/23 Complete Blood Count: White Blood Count 10.14 10^3/uL (4.4-10.8) 08/30/23 16:10 Red Blood Count 4.64 10^6/uL (3.93-5.22) 08/30/23 16:10 Hemoglobin 13.4 g/dL (11.2-15.7) 08/30/23 16:10 Hematocrit 39.8 % (36.0-46.0) 08/30/23 16:10 Platelet Count 268 10^3/uL (130-400) 08/30/23 16:10 Complete Metabolic Panel: Sodium 137 mmol/L (136-145) 08/30/23 16:10 Potassium 3.6 mmol/L (3.5-5.1) 08/30/23 16:10 Chloride 102 mmol/L (98-107) 08/30/23 16:10 Carbon Dioxide 27.6 mmol/L (21.0-32.0) 08/30/23 16:10 BUN 12 mg/dL (7-18) 08/30/23 16:10 Creatinine 0.9 mg/dL (0.55-1.02) 08/30/23 16:10 Est GFR (CKD-EPI 2020) 91.55 (mL/min/1.73m2) 08/30/23 16:10 Calcium 9.4 mg/dL (8.5-10.1) 08/30/23 16:10 Glucose 88 mg/dL (74-106) 08/30/23 16:10 Liver Function Panel: No Data to Display Coagulation Panel: No Data to Display Cardiac Panel: No Data to Display Arterial Blood Gas: No Data to Display Venous Blood Gas: No Data to Display Pancreas Panel: No Data to Display Thyroid Panel: No Data to Display Infectious Disease: No Data to Display Blood Cultures: No Data to Display Toxicology Panel: No Data to Display Panel: Beta HCG, Quantitative 68247 mIU/mL (1-3) H 08/20/23 14:45 Imaging and Studies Imaging and Studies Study information below may be from another EMR and interpreted by another provider. Please see original notes in EMR for more complete details. EKG Summary: EKG PATIENT NAME: Miki Mcclure UNIT #: [id number] ORDERING PROVIDER: Carmella Abbott DO PRIMARY CARE PROVIDER: CHAYITO RAMACHANDRAN MD DATE/TIME OF SERVICE: 12/02/20 1824 : 2000 PERFORMING LOCATION: ER APPROVED REPORT Exam: Resting ECG Reason for Exam: chest pain Patient Location: E HR:80 bpm ECG Measurements Heart Rate 80 AXIS TN 138 P 76 QRSd 81 QRS 85 QT 411 T51 QTc 474 Conclusion Sinus rhythm...normal P axis, V-rate 60- 99. Sinus. Artifact from pt movement. No STEMI. I have reviewed and interpreted ECG and agree with software generated interpret ation. <Electronically signed by CARMELLA ABBOTT DO in OV> E-Sign Date: 12/02/20 E-Sign Time: 1831 ADDENDUM APPROVED REPORT Exam: Resting ECG Reason for Exam: chest pain Patient Location: E HR:80 bpm ECG Measurements Heart Rate 80 AXIS TN 138 P 76 QRSd 81 QRS 85 QT 411 T51 QTc 474 Conclusion Sinus rhythm...normal P axis, V-rate 60- 99. Sinus. Artifact from pt movement. No STEMI. I have reviewed and interpreted ECG and agree with software generated interpretation. I have reviewed and I agree with the emergency room physician's ECG interpretation. Electronically signed by: <Electronically signed by Chastity Mota M.D. in OV> 12/05/20 0909 Cosigned by: Anesthesia Assessment and Plan Anesthesia History Personal History: No History of Anesthesia Complications Family History: No Family History of Anesthesia Complications Exercise Tolerance Exercise Tolerance: Metabolic Equivalents>4 Pertinent Negatives Pertinent Negatives: No Symptoms of GERD, No Major Cardiovascular Symptoms or Complaints, No Major Pulmonary Symptoms or Complaints and No History of CVA/TIA Cardiac & Pulmonary Exam Cardiac Exam: Normal S1/S2 Heart Sounds Pulmonary Exam: Clear Bilateral Breath Sounds Implantable Cardiac Device Does patient have a Pacemaker or an ICD?: No Airway Exam Known Difficult Airway: No Mallampati Class: 3 Mouth Opening: Normal (> 3cm) Thyromental Distance: Greater than 3 cm Neck Range of Motion: Full ROM Neck Circumference: Normal Teeth Condition: Normal Dentition ASA Classification ASA Score: ASA 2 Emergency Case?: No NPO Status NPO Status: NPO Clears >2 hours, Solids >8 hours Status Status: Confirmed (nonviable IUP, here for suction D&C) and Positive HCG Anesthesia Plan Resuscitation Status: Full Code Anesthesia Technique: General Anesthesia Airway Planned: Natural Airway Monitors Used: Standard Monitors
[2023-08-31] MEDS: Lactated Ringers 1,000 ML 125 ML IV (06:55)
[2023-08-31] MEDS: DOXYCYCLINE 100 MG in Normal Saline 100 ML IVPB (07:05)
[2023-08-31] MEDS: Bupivacaine 0.25% Pres-Free 30 ML VIAL (07:58)
--- NOTE | 2023-08-31 07:58 | POCSPONT_PTH ---
PATIENT: Miki Day LOC: [facility] U#:[id number] AGE/SX: 22/F ROOM: RE08/31/[address]: Yesenia Garcia : 2000 BED: DIS: 08/31/2023 SPEC #: [id number] RECD: 08/31/23 12:13 STATUS: DARYL MERIDA #: [id number] [place]: 08/31/23 07:[address]: Yesenia Garcia DEPT: Surgical Specimen RECD BY: Kristina Martinez ENTERED: 08/31/23 12:14 SP TYPE: POCLOLA COOK DR: Hyun Garcia Tissues: 1 - ,SPONTANEOUS Procedures: GROSS AND MICRO LEVEL 4 IMMUNOPEROXIDASE STAIN Comments: [id number]
[2023-08-31] MEDS: Silver Nitrate Stick 1 EACH (08:01)
--- NOTE | 2023-08-31 08:28 | W.PM.DSUDISC ---
Date of service: 08/31/23 Time of Service: 08:28 Discharge Plan Disposition Patient Disposition: Home Discharge Details Reason For Visit: D&C missed Attending Provider: Yesenia Garcia Primary Care Provider: Hyun Garcia Home Meds and New Rx's Prescriptions: No Action probiotic 1 tab PO DAILY sertraline 50 mg tablet 50 mg PO DAILY melatonin 3 mg capsule 3 mg PO HS PRN ondansetron 4 mg tablet,disintegrating 4 mg PO Q8H hydroxyzine HCl 25 mg tablet 25 mg PO QHS PRN PNV cmb#95-ferrous fumarate-FA [] 28 mg iron- 800 mcg tablet 1 tab PO DAILY Discharge Instructions Additional Instructions: keep your follow up appointment with Dr. Garcia in 2 weeks. You may use Ibuprofen (Advil) and Acetaminophen (Tylenol) for pain. You can expect bleeding like a period for the next week. We will check your hormone level at the time of your postop visit. Call Dr. Garcia at with any concerns or questions. Stand Alone Forms: DSU Post D&C Discharge Orders Discharge Orders: Discharge Order (Routine); Ordered 08/31/23 Ordered By: Yesenia Garcia
--- NOTE | 2023-08-31 08:33 | W.PM.OP ---
Date of service: 08/31/23 Time of Service: 08:33 Operative Note Operative Note DATE OF PROCEDURE: 08/31/23 PRE-OP DIAGNOSIS: missed 1st trimester PROCEDURE: Suction D&C SURGEON: Yesenia Garcia Refer to Anesthesia Record ESTIMATED BLOOD LOSS: 10 PATHOLOGY: other (Products of conception to pathology) COMPLICATIONS: None Patient was transported to: PACU Patient's condition: stable Indications: 22yo female with missed at 10w EGA confirmed by 1st trimester u/s on 08/27/23. Pt had serial OB 1st trimester where viability could not be confirmed definitively until OB performed in DI on 08/27/23. CRL of pole 8+w with no FH activity noted. Otherwise normal uterus and bilateral adnexa. Findings: Uterus 10w size on bimanual exam. Procedure Description: Patient was taken to the operating room where she was placed in the dorsal supine position and monitored anesthesia care was performed without difficulty. IV Doxycycline was administered upon arrival in the OR. She was then placed in the [facility] in a neurologically neutral position. I attempted to visualize the uterus utilizing the [place] portable ultrasound but was unable to locate the uterus on the exam screen. Ultrasound was not attempted for the remainder of the procedure. Bimanual exam was performed. She was then prepped, and draped in the usual sterile fashion. Surgical timeout was performed. Bladder was drained for 75cc of clear winter urine. [place] speculum was placed into the vagina and the anterior lip of the cervix was infiltrated with 2 cc of 0.25% Marcaine without epinephrine. A single-tooth tenaculum was then used to grasp and hold the anterior lip of the cervix. A paracervical block was performed with 4 cc of quarter percent Marcaine injected into the 4 and 8:00 paracervical spaces respectively. The cervix was then sequentially dilated to a maximum of 8 [place] and a 8 mm curved suction cannula was attached to suction and the level of suction tested. The cannula was inserted into the uterine cavity attached to suction and sequentially all 4 quadrants of the uterine cavity were suction curetted until there was minimal tissue returned. The suction cannula was then removed a banjo curette was used to perform a gentle curetting of all 4 quadrants of the uterine cavity. Minimal tissue was returned. A final insertion of the suction cannula and suction curetting of all 4 quadrants was performed with no tissue and minimal blood returned. All instruments were removed from the vagina tenaculum site was noted to be bleeding and was made hemostatic with the application of Silver Nitrate. Instruments were removed from the vagina and she was awakened and transported to recovery area in stable condition. All sponge lap needle counts correct x2
--- NOTE | 2023-08-31 08:56 | W.ANESPOSTOP ---
Postoperative Evaluation Date, Time and Location Date Performed: 08/31/23 Time Performed: 08:57 Patient Location: Day Surgery Unit Vital Signs Most Recent Imported Vital Signs: Most Recent Vital Signs Temp Pulse Resp BP Pulse Ox 37.1 C 58 L 16 125/69 95 08/31/23 08:25 08/31/23 08:36 08/31/23 08:36 08/31/23 08:36 08/31/23 08:36 Pain Score Most Recent Pain Score: Most Recent Pain Score Pain Level 5 08/31/23 08:36 Assessment Mental Status: Awake (Alert & Oriented to Patient Baseline) Airway and Respiratory Function: Patent airway with normal (patient baseline) respiratory exam Cardiovascular Function: Hemodynamically Stable Hydration Status: Adequately Hydrated Nausea & Vomiting: No Nausea or Vomiting Pain: Pain is tolerable per patient Peripheral Nerve Block: Patient did not receive a nerve block
[2023-08-31] MEDS: Ondansetron 4 MG/2 ML VIAL IVP (09:11)
[2023-08-31] MEDS: Ketorolac 15 MG/ML VIAL IVP (09:36)
== END 2023-08-31 10:25 | disposition home or self-care (01) ==
PROVIDERS: PCP Family Medicine; Visit Provider Obstetrics & Gynecology Gynecology
PROC: (CPT 59841; principal; 2023-08-31 07:30)
DX: O02.1 Missed abortion (principal); Z3A.10 10 weeks gestation of pregnancy
CPT/HCPCS: 59820; 88305; 88361; J0131; J0665; J1885; J2001; J2250; J2405; J2704

== ENCOUNTER 2023-09-08 20:21 | Outpatient (CLI) | payer BC, SELFPAY ==
[2023-09-08 16:52] LABS: HCG Quant, Pregnancy 640 mIU/mL (1-3)
== END 2023-09-08 20:22 | disposition home or self-care (01) ==
LOC: LBO 20:21
PROVIDERS: PCP Family Medicine; Visit Provider Obstetrics & Gynecology Gynecology
DX: Z98.890 Other specified postprocedural states (principal)
CPT/HCPCS: 36415; 84702

== ENCOUNTER 2023-09-17 02:57 | Outpatient (CLI) | payer BC, SELFPAY ==
[2023-09-17 11:45] LABS: HCG Quant, Pregnancy 74 mIU/mL (1-3)
== END 2023-09-17 02:58 | disposition home or self-care (01) ==
PROVIDERS: PCP Family Medicine; Visit Provider Obstetrics & Gynecology
DX: O08.89 Other complications following an ectopic and molar pregnancy (principal)
CPT/HCPCS: 36415; 84702

== ENCOUNTER 2023-09-24 01:53 | Outpatient (CLI) | payer BC, SELFPAY ==
[2023-09-24 14:11] LABS: HCG Quant, Pregnancy 18 mIU/mL (1-3)
== END 2023-09-24 01:54 | disposition home or self-care (01) ==
LOC: LBO 01:53
PROVIDERS: PCP Family Medicine; Visit Provider Obstetrics & Gynecology
DX: O08.89 Other complications following an ectopic and molar pregnancy (principal)
CPT/HCPCS: 36415; 84702

== ENCOUNTER 2023-09-30 02:28 | Outpatient (CLI) | payer BC, SELFPAY ==
[2023-09-30 13:55] LABS: HCG Quant, Pregnancy 10 mIU/mL (1-3)
== END 2023-09-30 02:29 | disposition home or self-care (01) ==
PROVIDERS: PCP Family Medicine; Visit Provider Obstetrics & Gynecology Gynecology
DX: O08.89 Other complications following an ectopic and molar pregnancy (principal)
CPT/HCPCS: 36415; 84702

== ENCOUNTER 2023-10-07 12:25 | Outpatient (CLI) | payer BC, SELFPAY ==
[2023-10-07 12:56] LABS: HCG Quant, Pregnancy 4 mIU/mL (1-3)
== END 2023-10-07 12:26 | disposition home or self-care (01) ==
PROVIDERS: PCP Family Medicine; Visit Provider Obstetrics & Gynecology Gynecology
DX: O08.89 Other complications following an ectopic and molar pregnancy (principal)
CPT/HCPCS: 36415; 84702

== ENCOUNTER 2023-11-01 04:16 | Outpatient (CLI) | payer BC, SELFPAY ==
[2023-11-01 16:08] LABS: HCG Quant, Pregnancy 1 mIU/mL (1-3)
== END 2023-11-01 04:17 | disposition home or self-care (01) ==
PROVIDERS: PCP Family Medicine; Referring Provider Obstetrics & Gynecology; Visit Provider Obstetrics & Gynecology
DX: O08.89 Other complications following an ectopic and molar pregnancy (principal)
CPT/HCPCS: 36415; 84702

== ENCOUNTER 2024-03-10 01:47 | Outpatient (CLI) | payer BC, SELFPAY ==
[2024-03-10 15:54] LABS: Panorama Kit Sent via Fed Ex
[2024-03-10 15:57] LABS: Abs Immature Grans 0.03 10^3/uL (0.0-0.06); Absolute Basophil Count 0.04 10^3/uL (0.0-0.2); Absolute Eosinophil Count 0.08 10^3/uL (0.0-0.7); Absolute Lymphocyte Count 2.79 10^3/uL (1.2-3.4); Absolute Monocyte Count 0.79 10^3/uL (0.1-0.8); Basophils % 0.4 %; Eosinophils % 0.7 %; HCT 38.8 % (36.0-46.0); Immature Grans % 0.3 %; Lymphocytes % 25.6 %; MCHC 33.5 % (32.0-36.0); MCV 86 fL (80-95); MPV 9.6 fL (8.0-11.0); Monocytes % 7.3 %; Neutrophils % 65.7 %; Platelet Count 250 10^3/uL (130-400); RBC 4.49 10^6/uL (3.93-5.22); RDW 12.7 % (11.7-14.6); RDW-SD 39.9 fL; WBC 10.89 10^3/uL (4.4-10.8)
[2024-03-10 16:14] LABS: Absolute Neutrophil Count 7.15 10^3/uL (1.2-6.7)
[2024-03-10 16:28] LABS: ALT 23 U/L (14-59); AST 18 U/L (15-37); Albumin 3.7 g/dL (3.4-5.0); Alkaline Phosphatase 133 U/L (46-116); Anion Gap 11.1 mmol/L (3-11); BUN 11 mg/dL (7-18); Bilirubin, Total 0.14 mg/dL (0.2-1.0); CO2 24.9 mmol/L (21.0-32.0); CREATININE 0.7 mg/dL (0.55-1.02); Calcium 9.1 mg/dL (8.5-10.1); Chloride 103 mmol/L (98-107); Estimated GFR 123.01 (mL/min/1.73m2); Glucose 94 mg/dL (74-106); Potassium 3.6 mmol/L (3.5-5.1); Sodium 139 mmol/L (136-145); Total Protein 6.9 g/dL (6.4-8.2)
[2024-03-12 09:17] LABS: HIV-1/2 Ag & Ab Screen Negative (Negative)
[2024-03-13 09:56] LABS: Rubella IgG Ab (UVM) Positive (See Note); Varicella IgG Antibody Negative (See Note)
[2024-03-13 09:57] LABS: Hepatitis B Surface Ag Negative (Negative)
[2024-03-13 10:26] LABS: Hepatitis C Ab w Rflx HCV PCR Negative (Negative)
[2024-03-14 16:10] LABS: Syphilis IgG w/Reflex Nonreactive (Nonreactive)
== END 2024-03-10 01:48 | disposition home or self-care (01) ==
LOC: LBO 01:47
PROVIDERS: Advanced Practice Midwife; PCP Family Medicine; Visit Provider Advanced Practice Midwife
DX: Z34.91 Encounter for supervision of normal pregnancy, unspecified, first trimester (principal); Z3A.11 11 weeks gestation of pregnancy
CPT/HCPCS: 36415; 80053; 86787; 86803; 86850; 86900; 86901; 87340; 87389; 85025; 86762; 86780

== ENCOUNTER 2024-03-10 16:41 | Outpatient (REF) | payer BC, SELFPAY ==
[2024-03-13 12:20] LABS: Chlamydia Result Negative (Negative); GC Result Negative (Negative)
== END 2024-03-10 16:42 | disposition home or self-care (01) ==
LOC: LBN 16:41
PROVIDERS: PCP Family Medicine; Visit Provider Advanced Practice Midwife
DX: Z34.91 Encounter for supervision of normal pregnancy, unspecified, first trimester (principal); Z3A.12 12 weeks gestation of pregnancy
CPT/HCPCS: 87491; 87591; 87086

== ENCOUNTER 2024-03-16 08:55 | Emergency (ER) | payer BC, SELFPAY ==
[2024-03-16] VITALS (25 sets, daily range): BP systolic 109–160; BP diastolic 52–84; PULSE 66–120; RESP 11–28; TEMP 36.7; O2SAT 97–100
--- NOTE | 2024-03-16 08:45 | RT.EKG_ITS ---
APPROVED REPORT Exam: Resting ECG Reason for Exam: Palpatations Patient Location: E HR:84 bpm ECG Measurements Heart Rate 84 AXIS [place] 132 P 75 QRSd 79 QRS 88 QT 354 T 25 QTc 420 Conclusion Sinus rhythm...normal P axis, V-rate 60- 99
[2024-03-16] MEDS: Lactated Ringers 1,000 ML 1000 ML IV (09:40)
[2024-03-16 09:47] LABS: Abs Immature Grans 0.04 10^3/uL (0.0-0.06); Absolute Basophil Count 0.04 10^3/uL (0.0-0.2); Absolute Eosinophil Count 0.04 10^3/uL (0.0-0.7); Absolute Lymphocyte Count 1.87 10^3/uL (1.2-3.4); Absolute Monocyte Count 0.67 10^3/uL (0.1-0.8); Absolute Neutrophil Count 8.47 10^3/uL (1.2-6.7); Basophils % 0.4 %; Eosinophils % 0.4 %; HCT 39.6 % (36.0-46.0); HGB 13.5 g/dL (11.2-15.7); Immature Grans % 0.4 %; Lymphocytes % 16.8 %; MCH 29.3 pg (27.0-33.0); MCHC 34.1 % (32.0-36.0); MCV 86 fL (80-95); MPV 9.9 fL (8.0-11.0); Platelet Count 254 10^3/uL (130-400); RBC 4.61 10^6/uL (3.93-5.22); RDW 12.5 % (11.7-14.6); RDW-SD 39.1 fL; WBC 11.14 10^3/uL (4.4-10.8)
--- NOTE | 2024-03-16 10:01 | ED.GENADUL_ITS ---
Discharge Plan Disposition Patient Disposition: Home Condition: Good Discharge Details Clinical Impression: , Anxiety, Nausea & vomiting, Dehydration Primary Care Provider: Heide Cervantes ED Provider: Heather Busch Home Meds and New Rx's Prescriptions: Continued probiotic 1 tab PO DAILY sertraline 50 mg tablet 50 mg PO DAILY melatonin 3 mg capsule 3 mg PO HS PRN hydroxyzine HCl 25 mg tablet 25 mg PO QHS PRN docusate sodium 100 mg capsule 100 mg PO BID PRN doxylamine-pyridoxine (vit B6) [Diclegis] 10-10 mg tablet,delayed release (DR/EC) 1 tab PO BID Qty: 60 0RF Nighttime Sleep-Aid (doxylamn) 25 mg tablet 12.5 mg PO QHS PRN pyridoxine (vitamin B6) [Vitamin B-6] 25 mg tablet 25 mg PO DAILY PNV cmb#95-ferrous fumarate-FA [] 28 mg iron- 800 mcg tablet 1 tab PO DAILY Discharge Instructions Instructions: Morning Sickness (DC), Dehydration, Adult ED Additional Instructions: Your labs and exam are reassuring here today. No evidence of problem with your heart rate or rhythm. Your labs are reassuring, no electrolyte abnormalities. You are given a liter of fluid. I encourage you to continue with hydration throughout the course of the day and continue with your medications to help prevent further morning sickness. Please keep your upcoming OBGYN appointment. If you develop inability to stay hydrated, abdominal or chest pain, increased shortness of breath or other new/worsening symptoms, please seek care urgently once again. Stand Alone Forms: Work Release Referrals: Cherelle Holt [[facility] NURSE AUTOMATION TEST ENGINEER] - Discharge Data Discharge Date/Time-TO BE ENTERED AT DEPARTURE: 03/16/24 11:20 HPI General Date/Time Provider Initiated Documentation: 03/16/24 08:57 . Limitations to Documentation: no limitations . Information obtained by: patient and RN notes reviewed . History of Present Illness 23 year old F presents to the emergency department with the chief complaint of Tachycardia, nausea, vomiting, elevated blood pressure, described as moderate, Quality is described as other (Denies any pain), Patient started experiencing this week(s) (Has had nausea and vomiting for weeks, tachycardia for few hours) and it has been constant. No relieving factors improve symptom(s), Other factors that worsen symptoms (Associates with ) . Patient notes loss of appetite and nausea/vomiting; denies chest pain, cough, diaphoresis, fever/chills, headaches, shortness of breath (Chronic shortness of breath associated with but no change) and weakness. Patient did receive the following treatments prior to arrival, none Related Data Home Medications ?Medication ?Instructions ?Recorded ?Confirmed probiotic 1 tab PO DAILY 10/30/22 03/16/24 sertraline 50 mg tablet 50 mg PO DAILY 10/30/22 03/16/24 melatonin 3 mg capsule 3 mg PO HS PRN 08/03/23 03/16/24 hydroxyzine HCl 25 mg tablet 25 mg PO QHS PRN 08/23/23 03/16/24 vit no.95-ferrous 1 tab PO DAILY 08/30/23 03/16/24 fumarate 28 mg-folic acid 800 mcg tablet () docusate sodium 100 mg capsule 100 mg PO BID PRN 02/15/24 03/16/24 doxylamine 10 mg-pyridoxine (vit 1 tab PO BID #60 tabs 03/13/24 03/16/24 B6) 10 mg tablet,delayed release (Diclegis) doxylamine succinate 25 mg tablet 12.5 mg PO QHS PRN 03/16/24 03/16/24 (Nighttime Sleep-Aid (doxylamine)) pyridoxine (vitamin B6) 25 mg 25 mg PO DAILY 03/16/24 03/16/24 tablet (Vitamin B-6) Previous Rx's ?Medication ?Instructions ?Recorded doxylamine 10 mg-pyridoxine (vit 1 tab PO BID #60 tabs 03/13/24 B6) 10 mg tablet,delayed release (Diclegis) Allergies Allergy/AdvReac Type Severity Reaction Status Date / Time prochlorperazine edisylate Allergy Severe dystonic Verified 03/16/24 09:07 (From Compazine) reaction amoxicillin (Amoxicillin) Allergy Mild Skin Rash Verified 03/16/24 09:07 General Stated Complaint: Palpitatns ONEIDA: 3 Review of Systems Constitutional Constitutional: Reports as per HPI, Denies chills, Denies fever(s) and Denies headache(s) ENT Ears, Nose, Mouth, and Throat: Denies headache(s) Cardiovascular Cardiovascular: Reports as per HPI and Denies chest pain Respiratory Respiratory: Reports as per HPI and Denies cough Gastrointestinal Gastrointestinal: Reports as per HPI Musculoskeletal Musculoskeletal: Reports as per HPI and Denies back pain Integumentary/Breasts Skin/Breast: Reports as per HPI and Denies rash Neurologic Neurologic: Reports as per HPI and Denies headache(s) Exam Const General: cooperative, healthy appearing, comfortable, no acute distress and well developed Nutritional Appearance: average body habitus and well nourished Orientation: alert and awake HENMT Head: normal to inspection Mouth: moist mucous membranes Resp Effort & Inspection: normal respiratory effort, able to speak in complete sentences and no respiratory distress Auscultation: clear to auscultation bilaterally, no rales, no rhonchi and no wheezes Cardio Rate: regular rate Rhythm: regular rhythm Heart Sounds: S1 normal and S2 normal GI Inspection: normal to inspection Palpation: soft, no hepatosplenomegaly and nontender Back/Spine/Pelvis Back: no CVA tenderness Skin General skin exam: no rashes or lesions noted Trauma: no lacerations or abrasions Neuro General: patient alert and patient awake Cognition: normal cognition Speech: speech normal Gait: normal gait Extrem General: normal to inspection, capillary refill normal, no pedal edema, no calf tenderness, normal gait and other (2+ distal pulses) Psych Appearance: grossly normal and well kempt Mental Status: mental status grossly normal Speech and Movement: speech and movement normal Course Vital Signs Vital signs: Vital Signs Pulse 120 H 03/16/24 08:58 Respiratory Rate 14 03/16/24 08:58 Blood Pressure 160/84 H 03/16/24 08:58 Pulse Oximetry 97 03/16/24 08:58 Temperature 36.7 C 03/16/24 09:09 Temperature Source Oral 03/16/24 09:09 Pulse 69 03/16/24 09:45 Pulse 78 03/16/24 09:50 Respiratory Rate 15 03/16/24 09:50 Blood Pressure 113/77 03/16/24 09:45 Blood Pressure Mean 86 03/16/24 09:45 Blood Pressure Position Sitting 03/16/24 08:58 Pulse Oximetry 99 03/16/24 09:50 Oxygen Delivery Method Room Air 03/16/24 08:58 Oxygen Flow Rate 0 03/16/24 08:58 Pain Level 0 03/16/24 08:58 Lab/Test Results Lab/Test Results: Laboratory Tests Range/Units 03/16/24 09:37 WBC (4.4-10.8) 10^3/uL 11.14 H RBC (3.93-5.22) 10^6/uL 4.61 Hgb (11.2-15.7) g/dL 13.5 Hct (36.0-46.0) % 39.6 MCV (80-95) fL 86 MCH (27.0-33.0) pg 29.3 MCHC (32.0-36.0) % 34.1 RDW (11.7-14.6) % 12.5 Plt Count (130-400) 10^3/uL 254 MPV (8.0-11.0) fL 9.9 Immature Gran % % 0.4 Neutrophils % % 76.0 Lymphocytes % % 16.8 Monocytes % % 6.0 Eosinophils % % 0.4 Basophils % % 0.4 Nucleated RBC % (0.0-0.3) % 0.0 Absolute Neutrophils (1.2-6.7) 10^3/uL 8.47 H Absolute Lymphocytes (1.2-3.4) 10^3/uL 1.87 Absolute Monocytes (0.1-0.8) 10^3/uL 0.67 Absolute Eosinophils (0.0-0.7) 10^3/uL 0.04 Absolute Basophils (0.0-0.2) 10^3/uL 0.04 Medical Decision Making Patient is a pleasant 23-year-old female accompanied by her mother with past medical history significant for anorexia, Raynaud's, presenting with chief complaint of nausea, vomiting, palpitations and tachycardia. Patient is 12 weeks gestation, 2, para 0. Has been doing well with her but reports that she has had for amount of nausea and vomiting recently. Has been using vitamins to help with the nausea. States this morning after vomiting she started to note that her heart rate was elevated and she felt felt fatigued. With sameness on her Apple Watch. Reports that the heart rate was in the 120s to 130s for about 2 hours. She called her REFRACTORY BRICKLAYER who recommended she come in for evaluation of any cardiac issues. Patient denies any personal familial history of cardiac issues. Denies any personal familial history of DVT or clotting disorders. No recent travel. No time of immobility. States that she has had increased shortness of breath but that it feels the same as when she has had previous pregnancies, is not worse than typical. Denies any pleuritic pain or chest pain. Did not find this worse this morning associated with the tachycardia. On exam, patient appears nontoxic. She was initially hypertensive but it came down to 113 SBP while talking. heart tones 145. Good movement. Abdomen is benign, mom denies any vaginal discharge, cramping, bleeding. Normal cardio vascular exam 2+ distal pulses, no murmurs rubs or gallops, lungs are clear in all murry. No calf pain, negative Homans' sign, no lower extremity edema. Based on patient's history and description, I believe this is likely associated with some dehydration as well as possible anxiety. Patient's not hypoxic and shortness of breath has not been worsening, very low likelihood for PE. She does report that she has had PVCs in the past these are not noted on her ECG this morning. ECG reviewed by emergency physician showing sinus rhythm no acute ischemic changes. Obtaining labs to evaluate for any electrolyte abnormalities Labs reviewed. White count 11 which appears to be baseline, likely associated with early . CMP without significant abnormality. Thyroid within normal limits. Urine without any protein or other abnormality. Discussed these findings with the patient and her mom. Will touch base with REFRACTORY BRICKLAYER and discussed the patient's continued nausea and vomiting. Patient's heart rate has been stable as has her blood pressure since her initial presentation. Much of this seems to be anxiety driven although patient states that her anxiety typically presents slightly different, her mom does seem to acknowledge that this is likely the driving cause of some of her symptoms today. Iris Holt at bedside. She and I reviewed the patient's history and evaluation here. She agrees with the assessment of possible dehydration, nausea and vomiting in early and anxiety. Again, we addressed the possibility of PE but based on patient's description, this does not seem likely and an unnecessary testing. She is feeling significantly improved after hydration. Patient ready for DC home with plan for follow-up with REFRACTORY BRICKLAYER as previously scheduled. Return precautions were discussed. All of her questions and concerns were addressed and she is in agreement this plan. This documentation was generated using Lightboxation system, please disregard any oddities of phrase or misspellings. 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 Change in bowel habit Infrequent colicky, crampy left lower quadrant pain associated with loose stool Acne vulgaris Chronic abdominal pain Lipoma of forehead Allergic rhinitis Anorexia nervosa Seborrhea capitis Raynauds phenomenon Surgical History S/P excision of lipoma H/O colonoscopy 2020 [place] teeth extracted Tonsillectomy Family History (Updated 01/18/24 @ 15:55 by Astrid Gutiérrez CNM) Mother Endometriosis Father Thyroid disease hyperthyroid Hypertension Stroke Hyperlipidemia Grandmother Endometriosis Maternal Uncle No problems noted. Maternal Aunt Diabetes Thyroid disease Paternal Uncle Non-Hodgkin lymphoma Maternal Aunt Thyroid disease Social History Smoking/Tobacco Use Status: Never Smoking risk assessment performed?: Yes Alcohol Intake: current Alcohol Intake frequency: holidays/special occasions only Drug use: Never Substance use type: does not use Household members: significant other and other Details: Sisi Whaley. 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 Marriage 11/2022. Housing: apartment Number of Children: 0 Communication Needs: None Education Level: college Details: BA-Social work. 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 Wants advanced nursing degree. Sexually active: Yes Do you feel safe at home: Yes Do you feel safe in your relationship?: Yes Additional Social history: UTAP Female Reproductive History Menstrual Duration of menses: 3-5 days control method: progestin IUCD History History 2 Para 0 Hx # Term Pregnancies 0 Multiple births 0 Hx # Pregnancies 0 Ectopic pregnancies 0 AB induced 0 Hx Number of Living Children 0 AB spontaneous 1 Past Pregnancies Del. Date GA/Weeks # Preg Succ Route Wgt Sex Labor Lgth Anesth esia Location Prov Complic 08/31/[address] Farooq Delivery Date: 08/31/23 Last Updated by: Astrid Gutiérrez CNM D and C. products of conception revealed partial Molar or villous dysmorphism
[2024-03-16 10:06] LABS: ALT 22 U/L (14-59); AST 18 U/L (15-37); Albumin 3.7 g/dL (3.4-5.0); Alkaline Phosphatase 96 U/L (46-116); Anion Gap 8.5 mmol/L (3-11); BUN 9 mg/dL (7-18); Bilirubin, Total 0.25 mg/dL (0.2-1.0); CO2 26.5 mmol/L (21.0-32.0); CREATININE 0.8 mg/dL (0.55-1.02); Calcium 9.7 mg/dL (8.5-10.1); Chloride 104 mmol/L (98-107); Glucose 75 mg/dL (74-106); Potassium 3.8 mmol/L (3.5-5.1); Sodium 139 mmol/L (136-145); Total Protein 7.1 g/dL (6.4-8.2)
[2024-03-16 10:07] LABS: Troponin I < 4 ng/L (<or=51)
[2024-03-16 10:15] LABS: TSH (W/Ref FT4) 0.76 uIU/mL (0.36-3.74)
[2024-03-16 10:16] LABS: Bilirubin Negative (Negative); Blood Negative (Negative); Clarity Sl Cloudy (Clear); Glucose Negative (Negative); Ketones Negative (Negative); Leukocyte Esterase Negative (Negative); Nitrite Negative (Negative); Specific Gravity 1.015 (1.005-1.025); Urobilinogen 0.2 mg/dL (Up to 0.2); pH 6.5 (5-8)
[2024-03-16 11:09] LABS: Troponin I < 4 ng/L (<or=51)
== END 2024-03-16 11:20 | disposition home or self-care (01) ==
PROVIDERS: Emergency Provider Physician Assistant; PCP Family Medicine
DX: O21.1 Hyperemesis gravidarum with metabolic disturbance (principal); O99.342 Other mental disorders complicating pregnancy, second trimester; F41.9 Anxiety disorder, unspecified; Z3A.22 22 weeks gestation of pregnancy
CPT/HCPCS: 36415; 80053; 93005; 96360; 96361; 96374; 96375; 99284; 81003; 83735; 84443; 84484; 85025; 93010

== ENCOUNTER 2024-03-29 10:02 | Emergency (ER) | payer BC, SELFPAY ==
[2024-03-29] VITALS (39 sets, daily range): BP systolic 92–137; BP diastolic 52–92; PULSE 70–115; RESP 16; TEMP 36.7–37.6; O2SAT 96–100
--- NOTE | 2024-03-29 10:33 | W.ED.GENAD ---
Discharge Plan Disposition Patient Disposition: Home Condition: Stable Discharge Details Clinical Impression: Influenza A Primary Care Provider: Heide Cervantes ED Provider: Deep Mata Home Meds and New Rx's Prescriptions: New ondansetron 4 mg tablet,disintegrating 4 mg PO Q8H PRNQty: 30 0RF oseltamivir 75 mg capsule 75 mg PO BID 5 Days Qty: 10 0RF Continued probiotic 1 tab PO DAILY sertraline 50 mg tablet 50 mg PO DAILY melatonin 3 mg capsule 3 mg PO HS PRN hydroxyzine HCl 25 mg tablet 25 mg PO QHS PRN docusate sodium 100 mg capsule 100 mg PO BID PRN doxylamine-pyridoxine (vit B6) [Diclegis] 10-10 mg tablet,delayed release (DR/EC) 1 tab PO BID Qty: 60 0RF Nighttime Sleep-Aid (doxylamn) 25 mg tablet 12.5 mg PO QHS PRN pyridoxine (vitamin B6) [Vitamin B-6] 25 mg tablet 25 mg PO DAILY PNV cmb#95-ferrous fumarate-FA [] 28 mg iron- 800 mcg tablet 1 tab PO DAILY ondansetron HCl 4 mg tablet 4 mg PO Q6H Patient Comments: TAKE ONE TABLET BY MOUTH EVERY 6 HOURS NEEDED FOR NAUSEA AND VOMITING Discharge Instructions Instructions: Ondansetron, Oseltamivir, Flu, Adult ED Additional Instructions: You were seen in the emergency department for your nausea and vomiting with cough. You have tested positive for influenza. Your electrolytes are normal and your blood work is benign. 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 Please return to the emergency department for any increasing respiratory distress, intractable nausea or vomiting, any severe increased abdominal pain especially with vaginal bleeding or discharge. Referrals: [facility] [Provider Group] Heide Cervantes [Primary Care Provider] - Discharge Data Discharge Date/Time-TO BE ENTERED AT DEPARTURE: 03/29/24 15:32 HPI General Date/Time Provider Initiated Documentation: 03/29/24 10:31. HPI Narrative: 23 year-old female presents to ED today by POV/ambulating with a chief complaint of vomiting x12 hours, 14 weeks G2PAL0, with onset overnight, took Zofran at home at 0600. Quality described as generalized fever with body aches, nausea and vomiting, possible developing cold, no radiation to high fever currently, active vomiting, cough, shortness of breath, chest pain, vaginal discharge, vaginal bleeding, diarrhea. Severity is described as moderate. Palliating factors include zofran without relief. Provoking factors include nothing specific. Events leading up to the incident/Associated Symptoms: Patient did not get a flu shot this year. Patient not anticoagulated. Related Data Home Medications ?Medication ?Instructions ?Recorded ?Confirmed probiotic 1 tab PO DAILY 10/30/22 03/29/24 sertraline 50 mg tablet 50 mg PO DAILY 10/30/22 03/29/24 melatonin 3 mg capsule 3 mg PO HS PRN 08/03/23 03/29/24 hydroxyzine HCl 25 mg tablet 25 mg PO QHS PRN 08/23/23 03/29/24 vit no.95-ferrous 1 tab PO DAILY 08/30/23 03/29/24 fumarate 28 mg-folic acid 800 mcg tablet () docusate sodium 100 mg capsule 100 mg PO BID PRN 02/15/24 03/29/24 doxylamine 10 mg-pyridoxine (vit 1 tab PO BID #60 tabs 03/13/24 03/29/24 B6) 10 mg tablet,delayed release (Diclegis) doxylamine succinate 25 mg tablet 12.5 mg PO QHS PRN 03/16/24 03/29/24 (Nighttime Sleep-Aid (doxylamine)) pyridoxine (vitamin B6) 25 mg 25 mg PO DAILY 03/16/24 03/29/24 tablet (Vitamin B-6) ondansetron 4 mg disintegrating 4 mg PO Q8H PRN #30 tabs 03/29/24 tablet ondansetron HCl 4 mg tablet 4 mg PO Q6H 03/29/24 03/29/24 oseltamivir 75 mg capsule 75 mg PO BID 5 days #10 caps 03/29/24 Previous Rx's ?Medication ?Instructions ?Recorded doxylamine 10 mg-pyridoxine (vit 1 tab PO BID #60 tabs 03/13/24 B6) 10 mg tablet,delayed release (Diclegis) ondansetron 4 mg disintegrating 4 mg PO Q8H PRN #30 tabs 03/29/24 tablet oseltamivir 75 mg capsule 75 mg PO BID 5 days #10 caps 03/29/24 Allergies Allergy/AdvReac Type Severity Reaction Status Date / Time prochlorperazine edisylate Allergy Severe dystonic Verified 03/29/24 10:23 (From Compazine) reaction amoxicillin (Amoxicillin) Allergy Mild Skin Rash Verified 03/29/24 10:23 General Stated Complaint: Abd Prob ONEIDA: 3 Review of Systems All systems reviewed & are unremarkable except as noted in HPI and below Exam Narrative Exam Narrative: GENERAL APPEARANCE: Well-nourished, non-toxic, awake and alert, atraumatic, no acute distress. SKIN: Warm, pink, dry, intact, without rashes/lesions/ulcerations. HEAD: Normocephalic, atraumatic, normal hair distribution for gender/age. EYES: Normal conjunctiva, no exudates on lids/lashes. ENT: Nares patent, no circumoral cyanosis, no facial swelling NECK: Supple, trachea midline, painless cervical ROM. LUNGS/CHEST: Lungs CTA bilaterally, non-labored respirations, normal A/P diameter, symmetrical expansion, no chest wall deformity HEART (CV/PV): Regular rate and rhythm without murmur, no peripheral edema, no JVD. ABDOMEN: Soft, non-distended, no guarding, no tenderness. MSK: Normal ROM, no swelling/deformity to bilateral UEs or LEs, moving all extremities without weakness, no cyanosis, spine midline without tenderness, normal curvature. NEURO: Mental Status AAOx4 - alert to person, place, time, events No facial droop, no forehead involvement. Motor: No focal weakness - strength 5/5 in bilateral UEs and LEs, proximal and distal, symmetric. Sensory: sensation intact to light touch globally. Gait normal: patient ambulated without ataxia into ED room. PSYCH: euthymic, cooperative, pleasant, appropriate speech Course Vital Signs Vital signs: Vital Signs Temperature 36.7 C 03/29/24 10:04 Pulse 115 H 03/29/24 10:04 Respiratory Rate 16 03/29/24 10:04 Blood Pressure 137/92 H 03/29/24 10:04 Pulse Oximetry 97 03/29/24 10:04 Temperature 36.7 C 03/29/24 10:24 Temperature Source Oral 03/29/24 10:24 Pulse 115 H 03/29/24 10:24 Respiratory Rate 16 03/29/24 10:24 Blood Pressure 137/92 H 03/29/24 10:24 Blood Pressure Position Sitting 03/29/24 10:24 Pulse Oximetry 97 03/29/24 10:24 Oxygen Delivery Method Room Air 03/29/24 10:24 Oxygen Flow Rate 0 03/29/24 10:24 Pain Level 1 03/29/24 10:24 Medical Decision Making This dictation utilizes [id number] dictation software and may contain unedited grammatical errors. 23 year-old female presents to ED today by POV/ambulating with a chief complaint of vomiting x12 hours, 14 weeks G2PAL0, with onset overnight, took Zofran at home at 0600. Quality described as generalized fever with body aches, nausea and vomiting, possible developing cold, no radiation to high fever currently, active vomiting, cough, shortness of breath, chest pain, vaginal discharge, vaginal bleeding, diarrhea. Severity is described as moderate. Palliating factors include zofran without relief. Provoking factors include nothing specific. Events leading up to the incident/Associated Symptoms: Patient did not get a flu shot this year. Patients' medical history: Chronic abdominal pain, anorexia nervosa, . Family and social history: Noncontributory. Pertinent exam findings / vital signs include lungs CTA, no abdominal tenderness, no active vomiting. Differential / pathologies of concern include gastroenteritis, hyperemesis gravidarum, URI or viral syndrome. Diagnostic studies of: -CBC, CMP, lactate, magnesium, lipase, beta-hCG, COVID/flu/RSV PCR. -CBC shows mild leukocytosis, no anemia -Lactate negative -CMP shows no actionable abnormality -Magnesium within normal limits -Lipase within normal limits -Beta-hCG as expected range -Influenza A positive Interventions of: -Started the patient on Tamiflu, provided reassurance and did consult with women's health so the patient can closely follow. -Zofran and IV Benadryl ED Course/Assessment/Plan: 23-year-old female presents with 12 hours of vomiting, passed a p.o. challenge here after antiemetics of Zofran and Benadryl, has flu A and was started on Tamiflu, recommend she follow-up with her women's health providers, strict return criteria for any acute worsening or abdominal pain or vaginal bleeding. Findings not consistent with intractable nausea or vomiting, sepsis, biliary colic, renal pathology. Disposition of influenza A. Patient verbalized understanding of the plan and return to ED criteria and engaged in shared decision making. Medical Records Medical records reviewed: Yes I reviewed the patient's medical records. Lab Data Lab results reviewed: Yes I reviewed the patient's lab results. Labs: Laboratory Tests Range/Units 03/29/24 03/29/24 10:41 10:57 WBC (4.4-10.8) 10^3/uL 11.66 H RBC (3.93-5.22) 10^6/uL 4.90 Hgb (11.2-15.7) g/dL 14.5 Hct (36.0-46.0) % 42.3 MCV (80-95) fL 86 MCH (27.0-33.0) pg 29.6 MCHC (32.0-36.0) % 34.3 RDW (11.7-14.6) % 12.7 Plt Count (130-400) 10^3/uL 241 MPV (8.0-11.0) fL 9.4 Immature Gran % % 0.3 Neutrophils % % 90.1 Lymphocytes % % 5.9 Monocytes % % 3.5 Eosinophils % % 0.0 Basophils % % 0.2 Nucleated RBC % (0.0-0.3) % 0.0 Absolute Neutrophils (1.2-6.7) 10^3/uL 10.51 H Absolute Lymphocytes (1.2-3.4) 10^3/uL 0.69 L Absolute Monocytes (0.1-0.8) 10^3/uL 0.41 Absolute Eosinophils (0.0-0.7) 10^3/uL 0.00 Absolute Basophils (0.0-0.2) 10^3/uL 0.02 VBG Lactate (0.6-1.4) mmol/L 0.8 Sodium (136-145) mmol/L 138 Potassium (3.5-5.1) mmol/L 3.6 Chloride (98-107) mmol/L 102 Carbon Dioxide (21.0-32.0) mmol/L 25.6 Anion Gap (3-11) mmol/L 10.4 BUN (7-18) mg/dL 10 Creatinine (0.55-1.02) mg/dL 0.7 Est GFR (CKD-EPI 2020) (mL/min/1.73m2) 123.01 Glucose (74-106) mg/dL 107 H Calcium (8.5-10.1) mg/dL 9.4 Magnesium (1.8-2.4) mg/dL 1.8 Total Bilirubin (0.2-1.0) mg/dL 0.33 AST (15-37) U/L 25 ALT (14-59) U/L 27 Alkaline Phosphatase (46-116) U/L 100 Total Protein (6.4-8.2) g/dL 7.6 Albumin (3.4-5.0) g/dL 3.7 Lipase (<78) U/L 22 Beta HCG, Quant (1-3) mIU/mL 12579 H COVID-19 Source Nasopharynx SARS-CoV-2 (PCR) (Negative) Negative Influenza Type A (PCR) (Negative) Positive A Influenza Type B (PCR) (Negative) Negative RSV (PCR) (Negative) Negative Quality:SDOH Health Related Social Needs: No Data to Display PFSH All Active Problems (Updated 03/29/24 @ 12:31 by LINDA Pickering) Influenza A (Acute) Dehydration (Acute) Nausea & vomiting (Acute) Susceptible to varicella (non-immune), currently (Acute) Elevated alkaline phosphatase level (Acute) since 2013, undetermined etiology Family history of hypertension in father (Acute) Penicillin-induced allergic rash (Acute) History of miscarriage, currently (Acute) (Acute) Anxiety (Chronic) Medical History (Updated 03/29/24 @ 12:31 by LINDA Pickering) Missed menses 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 Change in bowel habit Infrequent colicky, crampy left lower quadrant pain associated with loose stool Acne vulgaris Chronic abdominal pain Lipoma of forehead Allergic rhinitis Anorexia nervosa Seborrhea capitis Raynauds phenomenon Surgical History S/P excision of lipoma H/O colonoscopy 2020 [place] teeth extracted Tonsillectomy Family History (Updated 01/18/24 @ 15:55 by Astrid Gutiérrez CNM) Mother Endometriosis Father Thyroid disease hyperthyroid Hypertension Stroke Hyperlipidemia Grandmother Endometriosis Maternal Uncle No problems noted. Maternal Aunt Diabetes Thyroid disease Paternal Uncle Non-Hodgkin lymphoma Maternal Aunt Thyroid disease Social History Smoking/Tobacco Use Status: Never Smoking risk assessment performed?: Yes Alcohol Intake: current Alcohol Intake frequency: holidays/special occasions only Drug use: Never Substance use type: does not use Household members: significant other and other Details: Sisi Whlaey. 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 Marriage 11/2022. Housing: apartment Number of Children: 0 Communication Needs: None Education Level: college Details: BA-Social work. [employer] working at [employer]. current occupation: [employer]. Wants advanced nursing degree. Sexually active: Yes Do you feel safe at home: Yes Do you feel safe in your relationship?: Yes Additional Social history: [facility] Female Reproductive History Menstrual Duration of menses: 3-5 days control method: progestin IUCD History History 2 Para 0 Hx # Term Pregnancies 0 Multiple births 0 Hx # Pregnancies 0 Ectopic pregnancies 0 AB induced 0 Hx Number of Living Children 0 AB spontaneous 1 Past Pregnancies Del. Date GA/Weeks # Preg Succ Route Wgt Sex Labor Lgth Anesthesia Location Prov Complic 08/31/[address] Farooq Delivery Date: 08/31/23 Last Updated by: Astrid Gutiérrez CNM D and C. products of conception revealed partial Molar or villous dysmorphism
[2024-03-29 10:47] LABS: Lactate 0.8 mmol/L (0.6-1.4)
[2024-03-29 10:48] LABS: Abs Immature Grans 0.04 10^3/uL (0.0-0.06); Absolute Basophil Count 0.02 10^3/uL (0.0-0.2); Absolute Lymphocyte Count 0.69 10^3/uL (1.2-3.4); Absolute Monocyte Count 0.41 10^3/uL (0.1-0.8); Absolute Neutrophil Count 10.51 10^3/uL (1.2-6.7); Basophils % 0.2 %; HCT 42.3 % (36.0-46.0); HGB 14.5 g/dL (11.2-15.7); Immature Grans % 0.3 %; Lymphocytes % 5.9 %; MCH 29.6 pg (27.0-33.0); MCHC 34.3 % (32.0-36.0); MCV 86 fL (80-95); MPV 9.4 fL (8.0-11.0); Monocytes % 3.5 %; Neutrophils % 90.1 %; Platelet Count 241 10^3/uL (130-400); RDW 12.7 % (11.7-14.6); RDW-SD 39.9 fL; WBC 11.66 10^3/uL (4.4-10.8)
[2024-03-29] MEDS: Ondansetron 4 MG/2 ML VIAL IVP (10:59)
[2024-03-29 11:15] LABS: ALT 27 U/L (14-59); AST 25 U/L (15-37); Albumin 3.7 g/dL (3.4-5.0); Alkaline Phosphatase 100 U/L (46-116); Anion Gap 10.4 mmol/L (3-11); BUN 10 mg/dL (7-18); Bilirubin, Total 0.33 mg/dL (0.2-1.0); CO2 25.6 mmol/L (21.0-32.0); CREATININE 0.7 mg/dL (0.55-1.02); Calcium 9.4 mg/dL (8.5-10.1); Chloride 102 mmol/L (98-107); Estimated GFR 123.01 (mL/min/1.73m2); Glucose 107 mg/dL (74-106); Magnesium 1.8 mg/dL (1.8-2.4); Potassium 3.6 mmol/L (3.5-5.1); Sodium 138 mmol/L (136-145); Total Protein 7.6 g/dL (6.4-8.2)
[2024-03-29 11:47] LABS: Lipase 22 U/L (<78)
[2024-03-29 11:55] LABS: COVID-19 PCR Negative (Negative); Influenza A PCR Positive (Negative); Influenza B PCR Negative (Negative); RSV PCR Negative (Negative)
[2024-03-29 11:56] LABS: Source Nasopharynx
[2024-03-29] MEDS: ACETAMINOPHEN 1,000 MG/100 ML BAG 400 MG IVPB (13:02)
[2024-03-29] MEDS: diphenhydrAMINE 50 MG/ML VIAL 25 MG IVP (14:01)
[2024-03-29] MEDS: Lactated Ringers 1,000 ML 1000 ML IV (14:18)
== END 2024-03-29 15:32 | disposition home or self-care (01) ==
PROVIDERS: Emergency Provider Physician Assistant; PCP Family Medicine
DX: O98.512 Other viral diseases complicating pregnancy, second trimester (principal); J10.1 Influenza due to other identified influenza virus with other respiratory manifestations; Z3A.14 14 weeks gestation of pregnancy
CPT/HCPCS: 36415; 80053; 83690; 87637; 96365; 96375; 99284; 83605; 83735; 84702; 85025; J0131; J1200; J2405

== ENCOUNTER 2024-07-03 03:18 | Outpatient (CLI) | payer BC, SELFPAY ==
[2024-07-03 10:39] LABS: HCT 39.2 % (36.0-46.0); MCH 29.1 pg (27.0-33.0); MCHC 33.2 % (32.0-36.0); MCV 88 fL (80-95); MPV 9.7 fL (8.0-11.0); Platelet Count 241 10^3/uL (130-400); RBC 4.46 10^6/uL (3.93-5.22); RDW 13.2 % (11.7-14.6); RDW-SD 42.2 fL; WBC 12.38 10^3/uL (4.4-10.8)
[2024-07-03 10:56] LABS: Glucose,1 Hr (Glucola) 104 mg/dL (80-140)
== END 2024-07-03 03:19 | disposition home or self-care (01) ==
LOC: LBO 03:19
PROVIDERS: PCP Family Medicine; Visit Provider Advanced Practice Midwife
DX: Z34.92 Encounter for supervision of normal pregnancy, unspecified, second trimester (principal)
CPT/HCPCS: 36415; 82950; 85027

== ENCOUNTER 2024-08-19 21:21 | Outpatient (CLI) | payer BC, SELFPAY ==
[2024-08-19 21:51] VITALS: BP 120/74; PULSE 72; TEMP 36.9
[2024-08-19 22:06] VITALS: BP 120/74; PULSE 72
--- NOTE | 2024-08-20 09:06 | W.OBNST ---
Date of service: 08/20/24 Time of Service: 09:06 NST Evaluation Reason for NST Reasons for Nonstress Test: OTHER, SEE COMMENT Reason for NST Other: headache with higher blood pressure Gestational Age Gestational Age in Weeks and Days: 34 Weeks and 3Days Test and Monitor Explained Test/Monitor Explained: Test Explained and Monitor Explained Vital Signs Blood Pressure: 120/74 Pulse: 72 Temperature: 98.4 F Urine Results Urine Protein: Negative Urine Ketones: Negative Urine Glucose: Negative Urine Blood: Negative NST Information Date on Monitor: 08/19/24 Time on Monitor: 21:49 Date off Monitor: 08/19/24 Time off Monitor: 22:11 Total Time on Monitor: 22 NST Interventions: PO Hydration NST Evaluation Patient States Movement: Present FHR Baseline: 125 Variability: Moderate 6-25 bpm Accelerations: 15x15 Decelerations: None NST Results: Reactive Note Ultrasound Done: N/A. NST Note Note: pt took tylenol, is feeling better NST Reviewed and Verified by: Cherelle Holt
[2024-08-20 09:08] VITALS: BP 120/74; PULSE 72; TEMP 36.9
== END 2024-08-19 22:14 ==
LOC: BCD 21:22 → OBS 21:46
PROVIDERS: PCP Family Medicine; Visit Provider Advanced Practice Midwife
DX: O99.891 Other specified diseases and conditions complicating pregnancy (principal); R51.9 Headache, unspecified; R03.0 Elevated blood-pressure reading, without diagnosis of hypertension; Z3A.34 34 weeks gestation of pregnancy
CPT/HCPCS: 59025

== ENCOUNTER 2024-08-31 09:52 | Outpatient (REF) | payer BC, SELFPAY | END 2024-08-31 09:53 | disposition home or self-care (01) | LOC: LBN 09:52 | PROVIDERS: PCP Family Medicine; Visit Provider Advanced Practice Midwife | DX: Z34.93 Encounter for supervision of normal pregnancy, unspecified, third trimester (principal) | CPT/HCPCS: 87081 ==

== ENCOUNTER 2024-09-11 10:52 | Outpatient (CLI) | payer BC, SELFPAY ==
[2024-09-11 11:09] VITALS: BP 141/92; PULSE 112; TEMP 36.8
[2024-09-11 11:32] VITALS: BP 141/92; PULSE 112
[2024-09-11 12:00] LABS: HCT 41.6 % (36.0-46.0); HGB 13.9 g/dL (11.2-15.7); MCH 28.8 pg (27.0-33.0); MCHC 33.4 % (32.0-36.0); MCV 86 fL (80-95); MPV 10.4 fL (8.0-11.0); Platelet Count 184 10^3/uL (130-400); RBC 4.83 10^6/uL (3.93-5.22); RDW 12.8 % (11.7-14.6); WBC 8.64 10^3/uL (4.4-10.8)
--- NOTE | 2024-09-11 12:22 | W.OBNST ---
Date of service: 09/11/24 Time of Service: 12:26 NST Evaluation Reason for NST Reasons for Nonstress Test: GESTATIONAL HYPERTENSION Gestational Age Gestational Age in Weeks and Days: 37 Weeks and 5Days Test and Monitor Explained Test/Monitor Explained: Test Explained, Monitor Explained and Patient Verbalized Understanding Vital Signs Blood Pressure: 141/92 Pulse: 112 Temperature: 98.2 F NST Information Date on Monitor: 09/11/24 Time on Monitor: 11:05 Date off Monitor: 09/11/24 Time off Monitor: 11:41 Total Time on Monitor: 36 NST Interventions: PO Hydration NST Evaluation Patient States Movement: Present FHR Baseline: 140 Variability: Moderate 6-25 bpm Accelerations: 15x15 Decelerations: None NST Results: Reactive Note Ultrasound Done: N/A. NST Note Note: Miki experienced nausea and vomiting over the weekend. She was at work today and experienced a headache and dizziness. She reports that she feels that she is well hydrated and she is sipping from her water bottle today. She took her BP and it was elevated with her home cuff. Reactive NST Preeclampsia labs drawn CBC WNL and other labs pending. We discussed preeclampsia signs and gestational hypertension. rest encouraged and possibly stopping work at this time. She had planned to work until her delivery so she will have to consider whether she can do that now. Will repeat NST three days if labs are WNL today and consider IOL if BP 140/90 or above in three days. NST Reviewed and Verified by: Astrid Gutiérrez
[2024-09-11 12:26] VITALS: BP 141/92; PULSE 112; TEMP 36.8
[2024-09-11 12:33] LABS: ALT 28 U/L (14-59); AST 29 U/L (15-37); Albumin 2.6 g/dL (3.4-5.0); Alkaline Phosphatase 193 U/L (46-116); Anion Gap 11.2 mmol/L (3-11); BUN 6 mg/dL (7-18); Bilirubin, Total 0.3 mg/dL (0.2-1.0); CO2 24.8 mmol/L (21.0-32.0); CREATININE 0.7 mg/dL (0.55-1.02); Calcium 9.3 mg/dL (8.5-10.1); Chloride 103 mmol/L (98-107); Estimated GFR 123.01 (mL/min/1.73m2); Glucose 107 mg/dL (74-106); Potassium 4.2 mmol/L (3.5-5.1); Sodium 139 mmol/L (136-145); Total Protein 6.4 g/dL (6.4-8.2); Uric Acid 5.3 mg/dL (2.6-6.0)
[2024-09-11 12:45] VITALS: BP 138/87; PULSE 101
[2024-09-11 12:55] LABS: COMMENT (LAB VIEW ONLY) 60.19 mg/dL; PROTEIN 15.8 mg/dL; Prot/Crea Ur Ratio 0.26
--- NOTE | 2024-09-11 16:25 | W.OBNST ---
Date of service: 09/11/24 Time of Service: 16:25 NST Evaluation Reason for NST Reasons for Nonstress Test: GESTATIONAL HYPERTENSION Gestational Age Gestational Age in Weeks and Days: 37 Weeks and 5Days Test and Monitor Explained Test/Monitor Explained: Test Explained, Monitor Explained and Patient Verbalized Understanding Vital Signs Blood Pressure: 141/92 Pulse: 112 Temperature: 98.2 F Urine Results Urine Protein: Negative NST Information Time on Monitor: 11:05 Date off Monitor: 09/11/24 Time off Monitor: 11:41 NST Interventions: PO Hydration Contraction Frequency: none NST Evaluation Patient States Movement: Present FHR Baseline: 140 Variability: Moderate 6-25 bpm Accelerations: 15x15 Decelerations: None NST Results: Reactive Note Ultrasound Done: N/A. NST Note Note: one isolated mild range BP, f/up 138/87 Labs nml, no severe features Cvx exam 4 days ago was unfavorable Pt to return in 3 days for repeat NST/BP check & labs Advised to pt to stop working after tomorrow to reduce stress and increase rest Discussed IOL indications, pt declines IOL at this time Warning sx reviewed, pt to check BP daily at home NST Reviewed and Verified by: Cherelle Holt
[2024-09-11 16:29] VITALS: BP 141/92; PULSE 112; TEMP 36.8
== END 2024-09-11 13:12 | disposition other institution (70) ==
LOC: BCD 10:53 → OBS 11:02
PROVIDERS: PCP Family Medicine; Visit Provider Advanced Practice Midwife
DX: O13.3 Gestational [pregnancy-induced] hypertension without significant proteinuria, third trimester (principal); Z3A.37 37 weeks gestation of pregnancy
CPT/HCPCS: 36415; 80053; 85027; 59025; 82565; 84156; 84550

== ENCOUNTER 2024-09-14 08:38 | Outpatient (CLI) | payer BC, SELFPAY ==
[2024-09-14 16:12] VITALS: BP 130/82; PULSE 80; TEMP 37.2
[2024-09-14 16:14] VITALS: BP 130/82; PULSE 80
[2024-09-14 16:31] VITALS: BP 129/83; PULSE 81
[2024-09-14 16:50] LABS: HCT 38.2 % (36.0-46.0); HGB 13.0 g/dL (11.2-15.7); MCH 29.0 pg (27.0-33.0); MCHC 34.0 % (32.0-36.0); MCV 85 fL (80-95); MPV 10.9 fL (8.0-11.0); Platelet Count 193 10^3/uL (130-400); RBC 4.49 10^6/uL (3.93-5.22); RDW 12.6 % (11.7-14.6); RDW-SD 38.7 fL; WBC 9.87 10^3/uL (4.4-10.8)
[2024-09-14 17:00] LABS: PROTEIN < 6.0 mg/dL
[2024-09-14 17:06] LABS: ALT 30 U/L (14-59); AST 34 U/L (15-37); Albumin 2.4 g/dL (3.4-5.0); Alkaline Phosphatase 207 U/L (46-116); Anion Gap 11.2 mmol/L (3-11); BUN 10 mg/dL (7-18); Bilirubin, Total 0.2 mg/dL (0.2-1.0); CO2 21.8 mmol/L (21.0-32.0); Calcium 9.2 mg/dL (8.5-10.1); Chloride 106 mmol/L (98-107); Estimated GFR 127.67 (mL/min/1.73m2); Glucose 100 mg/dL (74-106); Potassium 3.6 mmol/L (3.5-5.1); Sodium 139 mmol/L (136-145); Total Protein 5.7 g/dL (6.4-8.2); Uric Acid 5.4 mg/dL (2.6-6.0)
--- NOTE | 2024-09-14 17:26 | W.OBNST ---
Date of service: 09/14/24 Time of Service: 17:26 NST Evaluation Reason for NST Reasons for Nonstress Test: GESTATIONAL HYPERTENSION Gestational Age Gestational Age in Weeks and Days: 38 Weeks and 1Days Test and Monitor Explained Test/Monitor Explained: Test Explained and Monitor Explained Vital Signs Blood Pressure: 130/82 Pulse: 80 Temperature: 99.0 F NST Information Date on Monitor: 09/14/24 Time on Monitor: 16:10 Date off Monitor: 09/14/24 Time off Monitor: 16:36 Total Time on Monitor: 26 NST Interventions: PO Hydration NST Evaluation Patient States Movement: Present FHR Baseline: 125 Variability: Moderate 6-25 bpm Accelerations: 15x15 and Prolonged Decelerations: None NST Results: Reactive Note Ultrasound Done: N/A. NST Note Note: BP 130/80s and mild headache at visit today. reactive NST and BP lower. No edema. I recommended rest and tylenol tonight. Call if no improvement of symptoms. Follow up with NST in 3 days at the Center. Precautions reviewed. Preeclampsia labs WNL and Miki was notified. NST Reviewed and Verified by: Astrid Gutiérrez
[2024-09-14 17:27] VITALS: BP 130/82; PULSE 80; TEMP 37.2
== END 2024-09-14 16:52 ==
LOC: BCD 08:39 → OBS 16:10
PROVIDERS: PCP Family Medicine; Visit Provider Advanced Practice Midwife
DX: O13.3 Gestational [pregnancy-induced] hypertension without significant proteinuria, third trimester (principal); Z3A.38 38 weeks gestation of pregnancy
CPT/HCPCS: 80053; 85027; 59025; 82565; 84156; 84550

== ENCOUNTER 2024-09-17 09:00 | Outpatient (CLI) | payer BC, SELFPAY ==
[2024-09-17 10:01] VITALS: BP 140/83; PULSE 111
[2024-09-17 10:30] VITALS: BP 140/83; PULSE 111; RESP 16; TEMP 36.7
[2024-09-17 10:54] LABS: HCT 40.4 % (36.0-46.0); HGB 14.0 g/dL (11.2-15.7); MCH 29.5 pg (27.0-33.0); MCHC 34.7 % (32.0-36.0); MCV 85 fL (80-95); MPV 11.1 fL (8.0-11.0); Platelet Count 182 10^3/uL (130-400); RBC 4.74 10^6/uL (3.93-5.22); RDW 12.5 % (11.7-14.6); RDW-SD 38.5 fL; WBC 8.23 10^3/uL (4.4-10.8)
[2024-09-17 11:07] VITALS: BP 141/91; PULSE 86
[2024-09-17 11:10] LABS: PROTEIN 7.4 mg/dL; Prot/Crea Ur Ratio 0.13
[2024-09-17 11:16] LABS: ALT 31 U/L (14-59); AST 29 U/L (15-37); Albumin 2.5 g/dL (3.4-5.0); Alkaline Phosphatase 214 U/L (46-116); Anion Gap 11.6 mmol/L (3-11); BUN 8 mg/dL (7-18); Bilirubin, Total 0.3 mg/dL (0.2-1.0); CO2 22.4 mmol/L (21.0-32.0); Calcium 9.1 mg/dL (8.5-10.1); Chloride 105 mmol/L (98-107); Estimated GFR 123.01 (mL/min/1.73m2); Glucose 125 mg/dL (74-106); Potassium 3.4 mmol/L (3.5-5.1); Sodium 139 mmol/L (136-145); Total Protein 6.0 g/dL (6.4-8.2)
[2024-09-17 11:24] VITALS: BP 140/90; PULSE 83
[2024-09-17 11:30] VITALS: BP 140/90; PULSE 110; TEMP 36.7
[2024-09-17 11:55] VITALS: BP 140/90; PULSE 110; TEMP 36.7
--- NOTE | 2024-09-17 11:55 | W.OBNST ---
Date of service: 09/17/24 Time of Service: 11:55 NST Evaluation Reason for NST Reasons for Nonstress Test: GESTATIONAL HYPERTENSION Gestational Age Gestational Age in Weeks and Days: 38 Weeks and 4Days Test and Monitor Explained Test/Monitor Explained: Test Explained, Monitor Explained and Patient Verbalized Understanding Vital Signs Blood Pressure: 140/90 Pulse: 110 Temperature: 98.1 F Urine Results Urine Protein: Positive Urine Ketones: Negative Urine Glucose: Negative Urine Blood: Negative NST Information Date on Monitor: 09/17/24 Time on Monitor: 10:30 Date off Monitor: 09/17/24 Time off Monitor: 11:30 Total Time on Monitor: 60 NST Interventions: PO Hydration and Notify Provider Contraction Frequency: irritability NST Evaluation Patient States Movement: Present FHR Baseline: 135 Variability: Moderate 6-25 bpm Accelerations: 15x15 Decelerations: None NST Results: Reactive Note Ultrasound Done: N/A. NST Note Note: IOL scheduled for 39 wks on 09/21 cvx unfavorable today, closed, posterior Labs all nml NST Reviewed and Verified by: Cherelle Holt
== END 2024-09-17 11:41 | disposition other institution (70) ==
LOC: BCD 09:11 → OBS 09:42
PROVIDERS: PCP Family Medicine; Visit Provider Advanced Practice Midwife
DX: O41.03X1 Oligohydramnios, third trimester, fetus 1 (principal); Z3A.38 38 weeks gestation of pregnancy
CPT/HCPCS: 36415; 80053; 85027; 59025; 82565; 84156

== ENCOUNTER 2024-09-21 11:51 | Inpatient (IN) | payer BC, SELFPAY ==
[2024-09-21] VITALS (11 sets, daily range): BP systolic 117–142; BP diastolic 68–94; PULSE 65–103; RESP 18–20; TEMP 36.5–36.8; O2SAT 96
[2024-09-21 12:14] LABS: HCT 39.3 % (36.0-46.0); HGB 13.6 g/dL (11.2-15.7); MCH 29.5 pg (27.0-33.0); MCHC 34.6 % (32.0-36.0); MCV 85 fL (80-95); MPV 10.7 fL (8.0-11.0); Platelet Count 191 10^3/uL (130-400); RBC 4.61 10^6/uL (3.93-5.22); RDW 12.5 % (11.7-14.6); RDW-SD 38.3 fL; WBC 8.61 10^3/uL (4.4-10.8)
[2024-09-21 12:30] LABS: ALT 29 U/L (14-59); AST 24 U/L (15-37); Albumin 2.5 g/dL (3.4-5.0); Alkaline Phosphatase 214 U/L (46-116); Anion Gap 10.0 mmol/L (3-11); BUN 11 mg/dL (7-18); Bilirubin, Total 0.2 mg/dL (0.2-1.0); CO2 23.0 mmol/L (21.0-32.0); Calcium 8.9 mg/dL (8.5-10.1); Chloride 106 mmol/L (98-107); Estimated GFR 123.01 (mL/min/1.73m2); Glucose 111 mg/dL (74-106); Potassium 3.6 mmol/L (3.5-5.1); Sodium 139 mmol/L (136-145); Total Protein 6.0 g/dL (6.4-8.2)
[2024-09-21] MEDS: miSOPROStol 25 MCG TAB 50 MCG PO (13:05)
--- NOTE | 2024-09-21 13:05 | HPE_ITS ---
Date of service: 09/21/24 Time of Service: 13:00 Assessment and Plan Assessment and plan (1) Gestational hypertension affecting first : Status: Acute (2) Encounter for induction of labor: Status: Acute Assessment and plan: A: 23 yo @ 39+1 wks, mild range gHTN, no severe features Scheduled IOL via cervical ripening, Coleman score is 4 Category 1 tracing, noted that TWG @ 49 lbs Normal diabetes screen of 104 at 28 wks, EFW at 3350 gms Anxiety treated with sertraline; GBS negative P: Admit to L&D, CBC, CMP, and T&S, normotensive upon admission Plan misoprostel for cervical ripening today and into the night with break for sleep Dr. Delaney available for consult prn OB-HPI Labor/Delivery History of Present Illness Reason for Visit: gestational HTN @ 39 wks, Induction of labor Chief Complaint: Scheduled Induction of Labor (labile mild range BP for past 2 weeks, labs monitored and nml, no severe features) Indication for Induction: Gestational Hypertension. MACI Calculator Estimated Delivery Date Method Current WG Current Estimate 09/27/24 LMP (Certain) 39w 1d Other Estimates 09/29/24 Ultrasound #1 38w 6d History of Present Expected Delivery Route/Plan - CNM FOB/ - Judd Day (first child) BB yes to circ Varicella non-immune, offer vaccine Interested in waterbirth; maybe nitrous; requests alternative LC assistance GBS negative Specific Issues/Plan 1. 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 2. Anxiety - treated with sertraline 50 mg, declines ref to [facility] 3. cfDNA low risk male, declines CF/SMA screening 4. 5P screen negative, PHQ9 score 2 5. Hx of elevated alk phos since 2013, undetermined etiology. Initial CMP nml for 6. Adverse reaction to Amox in childhood, accepts referral to [facility] Allergy. Declines 07/03/24 7. influenza A 03/28/24 - Tamiflu via ED; sinusitis 05/05, Rx'ed by PCP Assessment: History Reviewed & Current Informed Consent Informed Consent: Induction of Labor and Risk,Benefits,Alternatives Discussed Review of Systems All systems reviewed & are unremarkable except as noted in HPI and below PFSH All Active Problems (Updated 09/21/24 @ 17:11 by Cherelle Holt) Encounter for induction of labor (Acute) Gestational hypertension affecting first (Acute) Susceptible to varicella (non-immune), currently (Acute) Elevated alkaline phosphatase level (Acute) since 2013, undetermined etiology Penicillin-induced allergic rash (Acute) (Acute) Anxiety (Chronic) Medical History (Updated 09/21/24 @ 17:11 by Cherelle Holt) History of miscarriage, currently Family history of hypertension in father Low back pain PT Missed menses 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 Change in bowel habit Infrequent colicky, crampy left lower quadrant pain associated with loose stool Acne vulgaris Chronic abdominal pain Lipoma of forehead Allergic rhinitis Anorexia nervosa Seborrhea capitis Raynauds phenomenon Surgical History S/P excision of lipoma H/O colonoscopy 2020 [place] teeth extracted Tonsillectomy Family History (Updated 01/18/24 @ 15:55 by Astrid Gutiérrez CNM) Mother Endometriosis Father Thyroid disease hyperthyroid Hypertension Stroke Hyperlipidemia Grandmother Endometriosis Maternal Uncle No problems noted. Maternal Aunt Diabetes Thyroid disease Paternal Uncle Non-Hodgkin lymphoma Maternal Aunt Thyroid disease Social History Smoking/Tobacco Use Status: Never Smoking risk assessment performed?: Yes Alcohol Intake: current Alcohol Intake frequency: holidays/special occasions only Drug use: Never Substance use type: does not use Household members: significant other and other Details: Sisi Mcdowell Judd. 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 Marriage 11/2022. Housing: apartment Number of Children: 0 Communication Needs: None Education Level: college Details: BA-Social work. 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 Wants advanced nursing degree. Sexually active: Yes Do you feel safe at home: Yes Do you feel safe in your relationship?: Yes Female Reproductive History Menstrual Duration of menses: 3-5 days control method: progestin IUCD History History 2 Para 0 Hx # Term Pregnancies 0 Multiple births 0 Hx # Pregnancies 0 Ectopic pregnancies 0 AB induced 0 Hx Number of Living Children 0 AB spontaneous 1 Past Pregnancies Del. Date GA/Weeks # Preg Succ Route Wgt Sex Labor Lgth Anesth esia Location Prov Complic 08/31/[address] Farooq Delivery Date: 08/31/23 Last Updated by: Astrid Gutiérrez CNM D and C. products of conception revealed partial Molar or villous dysmorphism Meds Allergies and Home Medications Allergies Allergy/AdvReac Type Severity Reaction Status Date / Time prochlorperazine edisylate Allergy Severe dystonic Verified 09/14/24 15:39 (From Compazine) reaction amoxicillin (Amoxicillin) Allergy Mild Skin Rash Verified 09/14/24 15:39 Home Medications ?Medication ?Instructions ?Recorded ?Confirmed ?Type vit no.95-ferrous 1 tab PO DAILY 08/30/2301/06 History fumarate 28 mg-folic acid 800 mcg tablet () docusate sodium 100 mg capsule 100 mg PO BID PRN 02/1409/21/24 History sertraline 50 mg tablet 75 mg (1.5 x 50 mg) PO DAILY 90 07/20/24 09/21/24 Rx days #135 tabs doxylamine succinate 25 mg tablet 12.5 mg PO QHS PRN 0 09/21/24 09/21/24 History (Nighttime Sleep-Aid (doxylamine)) Exam Physical Exam Vital signs: Temp Pulse Resp BP 98.2 F 83 18 142/94 H 09/21/24 11:51 09/21/24 16:01 09/21/24 16:01 09/21/24 16:01 Vital Signs Reviewed: Yes Constitutional Constitutional: no acute distress, average body habitus and cooperative Detailed Labor and Delivery Exam Dilation: 1 Effacement (%): 70 station: -3 Cervix position: posterior Consistency: medium COLEMAN Score(Cervical Ripeness Score): 4 Amniotic Membrane Status: Intact Contraction Frequency(min): 1-2 per 10 minutes Contraction Intensity: Mild Fetus A Heart Rate Baseline: 135 Monitor Accelerations: Present Monitor Decelerations: None Variability: Moderate (6-25 BPM) Presentation: Cephalic Categories: Category I Est. Weight: 7 lb 6.168 oz Est. Weight: 3350 gms HEENT Exam HEENT Exam: Normal Neck Exam Neck Exam: Normal Chest/Brest/Axilla Exam Chest Exam: Normal Breast Exam Breast Exam: Not Done Respiratory Exam Respiratory Exam: Normal Cardiovascular Exam Cardiovascular Exam: Normal Abdominal Exam Abdominal Exam: Normal (soft, nontender) Rectal Exam Rectal Exam: Normal Exam Exam: Normal Extremities Exam Extremities Exam: Normal Back/Spine/Pelvis Exam Back Exam: Normal Pelvis Adequate: Yes Skin Exam Skin Exam: Normal Neurological Exam Neurological Exam: Normal Psychiatric Exam Psychiatric Exam: Normal Results Results Group Beta Strep: Negative Blood Type: O+ Rubella Status: Immune Varicella Immunity: Nonimmune Risk Assessment Risk for Shoulder Dystocia Historical/Initial OB: NEGATIVE FOR: Pelvic Abnormality, Pre- BMI>30, Previous Shoulder Dystocia or Previous Macrosomia 36 Weeks: POSITIVE FOR: Maternal Weight Gain>40lbs; NEGATIVE FOR: Current Gestational DM or EFW>4500gms Increased Risk?: No Delivery Plan @ 36wks: Risk for Pre-Eclampsia Daily Dose ASA Indicated: Yes Date Initiated/Initials: not indicated, JK Yes, if one or more: NEGATIVE FOR: Hx Pre-E/Gest HTN, Chronic HTN, Multiple Gestation, Pre-gestational DM, Renal Disease, Systemic Lupus or APA Syndrome Yes, if 2 or more: POSITIVE FOR: Nulliparity; NEGATIVE FOR: Age>= 35 yrs, >10yr btwn pregnancies, BMI>30, ethinicty, Mother/Sister w/ Pre-E or Previous IUGR Risk for Post- Hemorrhage Initial: NEGATIVE FOR: Multiple Gestation, Previous PPH, Known Clotting Deficiency, Grand Multiparity or Anticoagulation 36 Weeks: NEGATIVE FOR: Anemia, hgb<10, Low platelets(thrombocytopenia), Gestational HTN or Pre-E, Polyhydraminios or EFW>4500gms At Risk?: No Counseled re: Active Management: Yes Risks Reviewed Risks Reviewed Upon Admission: Yes
--- NOTE | 2024-09-21 22:25 | W.PM.OBNL1 ---
Date of service: 09/21/24 Time of Service: 22:00 Informed Consent Informed Consent: Induction of Labor and Risk,Benefits,Alternatives Discussed Pelvic Exam Comments: pelvic exam at 1730 unchanged from admission exam, deferred at this time Contractions Monitor Mode: External Contraction Frequency(min): q2-3 Intensity: Mild Fetus A Monitor: External (US) Heart Rate Baseline: 135 Variability: Moderate (6-25 BPM) Categories: Category I Accelerations: Present Decelerations: None Amniotic Membrane Status: Intact Assessment and Plan Assessment and plan (1) Encounter for induction of labor: Status: Acute Assessment and plan: A: Pt received misoprostel at 1300, 50 mcg dose PO. Next dose held due to uterine contraction frequency, Will continue to hold now as contractions remain q2-3 minutes apart though mild Cvx unchanged from admission, category 1 FHT BP's in general nml @ 130's 0ver 80's, two mild range readings obtained, no severe features P: Pt will take Ambien and sleep the night, Reassess for further cervical ripening in the morning when contrx have slowed Dr. Delaney aware of pt status and POC (2) Gestational hypertension affecting first : Status: Acute Objective Abnormal lab results 09/21/24 Range/Units 12:02 Glucose 111 H (74-106) mg/dL Alkaline Phosphatase 214 H (46-116) U/L Total Protein 6.0 L (6.4-8.2) g/dL Albumin 2.5 L (3.4-5.0) g/dL Temp Pulse Resp BP Pulse Ox 97.3 F L 81 18 129/86 96 09/22/24 05:57 09/22/24 07:45 09/21/24 18:03 09/22/24 07:45 09/21/24 18:03 Laboratory Results WBC 8.61 10^3/uL (4.4-10.8) 09/21/24 12:02 RBC 4.61 10^6/uL (3.93-5.22) 09/21/24 12:02 Hgb 13.6 g/dL (11.2-15.7) 09/21/24 12:02 Hct 39.3 % (36.0-46.0) 09/21/24 12:02 MCV 85 fL (80-95) 09/21/24 12:02 MCH 29.5 pg (27.0-33.0) 09/21/24 12:02 MCHC 34.6 % (32.0-36.0) 09/21/24 12:02 RDW 12.5 % (11.7-14.6) 09/21/24 12:02 Plt Count 191 10^3/uL (130-400) 09/21/24 12:02 MPV 10.7 fL (8.0-11.0) 09/21/24 12:02 Sodium 139 mmol/L (136-145) 09/21/24 12:02 Potassium 3.6 mmol/L (3.5-5.1) 09/21/24 12:02 Chloride 106 mmol/L (98-107) 09/21/24 12:02 Carbon Dioxide 23.0 mmol/L (21.0-32.0) 09/21/24 12:02 Anion Gap 10.0 mmol/L (3-11) 09/21/24 12:02 BUN 11 mg/dL (7-18) 09/21/24 12:02 Creatinine 0.7 mg/dL (0.55-1.02) 09/21/24 12:02 Est GFR (CKD-EPI 2020) 123.01 (mL/min/1.73m2) 09/21/24 12:02 Glucose 111 mg/dL (74-106) H 09/21/24 12:02 Calcium 8.9 mg/dL (8.5-10.1) 09/21/24 12:02 Total Bilirubin 0.2 mg/dL (0.2-1.0) 09/21/24 12:02 AST 24 U/L (15-37) 09/21/24 12:02 ALT 29 U/L (14-59) 09/21/24 12:02 Alkaline Phosphatase 214 U/L (46-116) H 09/21/24 12:02 Total Protein 6.0 g/dL (6.4-8.2) L 09/21/24 12:02 Albumin 2.5 g/dL (3.4-5.0) L 09/21/24 12:02 ABO/Rh O Positive 09/21/24 12:02 Antibody Screen NEGATIVE 09/21/24 12:02 Subjective Interval history since last seen: contractions feel tight, some back discomfort, not really painful, no bleeding or nausea, getting sleepy.
[2024-09-21] MEDS: Zolpidem 5 MG TAB 10 MG PO (22:36)
[2024-09-22] VITALS (11 sets, daily range): BP systolic 126–142; BP diastolic 74–86; PULSE 63–81; RESP 14–18; TEMP 36.3–37; O2SAT 96–97
--- NOTE | 2024-09-22 08:00 | W.PM.OBNL1 ---
Date of service: 09/22/24 Time of Service: 08:00 Informed Consent Informed Consent: Induction of Labor, Risk,Benefits,Alternatives Discussed and Other (Stinson balloon insertion for cervical ripening,) Pelvic Exam Dilation: 2.5 Effacement (%): 80 station: -3 Cervix Position: posterior Consistency: medium BISHOPS Score(Cervical Ripeness Score): 5 Contractions Monitor Mode: External Contraction Frequency(min): q6-8 Intensity: Mild Fetus A Monitor: External (US) Heart Rate Baseline: 140 Variability: Moderate (6-25 BPM) Accelerations: Present Decelerations: None Amniotic Membrane Status: Intact Assessment and Plan Assessment and plan (1) Encounter for induction of labor: Status: Acute Assessment and plan: A: 18 g stinson with 60 ml sterile saline placed in lower uterine segment Posterior cvx difficult to reach but pt tolerated exam & placement, 2/80%, can stretch to 3 cm, very posterior, vtx -3 intact membranes Category 1 tracing, pt eager to make some progress P: Hand off to KRISTAN Gutiérrez to continue induction process Anticipate Objective Objective Narrative Objective Narrative: Pt slept well after taking Ambien as sleep aid Has been up and showered, oriented to balloon R&B and insertion procedure, she consents VSS and normotensive this morning
[2024-09-22] MEDS: Sertraline 50 MG TAB 75 MG PO (08:31)
[2024-09-22] MEDS: miSOPROStol 25 MCG TAB 50 MCG PO ×3 (09:35→18:26)
--- NOTE | 2024-09-22 16:34 | W.PM.OBNL1 ---
Date of service: 09/22/24 Time of Service: 10:00 Informed Consent Informed Consent: Induction of Labor, Risk,Benefits,Alternatives Discussed and Other (Stinson balloon insertion for cervical ripening,) Contractions Monitor Mode: External Contraction Frequency(min): every 6-7 Contraction Duration(sec): 60 Intensity: Mild/Moderate Fetus A Monitor: External (US) Heart Rate Baseline: 130 Presentation: Cephalic Variability: Moderate (6-25 BPM) Categories: Category I FHR Rhythm: Regular Accelerations: 15 X 15 Decelerations: None Amniotic Membrane Status: Intact Assessment and Plan Assessment and plan (1) Encounter for induction of labor: Status: Acute Assessment and plan: Discussed continuing misoprostol or awaiting stronger contractions. She elects to continue misoprostol and 2nd dose was ordered. Will continue to assess labor progress and heart rate pattern. Objective Temp Pulse Resp BP Pulse Ox 97.9 F 73 16 129/81 96 09/22/24 15:41 09/22/24 15:41 09/22/24 15:41 09/22/24 15:40 09/22/24 15:41 Laboratory Results WBC 8.61 10^3/uL (4.4-10.8) 09/21/24 12:02 RBC 4.61 10^6/uL (3.93-5.22) 09/21/24 12:02 Hgb 13.6 g/dL (11.2-15.7) 09/21/24 12:02 Hct 39.3 % (36.0-46.0) 09/21/24 12:02 MCV 85 fL (80-95) 09/21/24 12:02 MCH 29.5 pg (27.0-33.0) 09/21/24 12:02 MCHC 34.6 % (32.0-36.0) 09/21/24 12:02 RDW 12.5 % (11.7-14.6) 09/21/24 12:02 Plt Count 191 10^3/uL (130-400) 09/21/24 12:02 MPV 10.7 fL (8.0-11.0) 09/21/24 12:02 Sodium 139 mmol/L (136-145) 09/21/24 12:02 Potassium 3.6 mmol/L (3.5-5.1) 09/21/24 12:02 Chloride 106 mmol/L (98-107) 09/21/24 12:02 Carbon Dioxide 23.0 mmol/L (21.0-32.0) 09/21/24 12:02 Anion Gap 10.0 mmol/L (3-11) 09/21/24 12:02 BUN 11 mg/dL (7-18) 09/21/24 12:02 Creatinine 0.7 mg/dL (0.55-1.02) 09/21/24 12:02 Est GFR (CKD-EPI 2020) 123.01 (mL/min/1.73m2) 09/21/24 12:02 Glucose 111 mg/dL (74-106) H 09/21/24 12:02 Calcium 8.9 mg/dL (8.5-10.1) 09/21/24 12:02 Total Bilirubin 0.2 mg/dL (0.2-1.0) 09/21/24 12:02 AST 24 U/L (15-37) 09/21/24 12:02 ALT 29 U/L (14-59) 09/21/24 12:02 Alkaline Phosphatase 214 U/L (46-116) H 09/21/24 12:02 Total Protein 6.0 g/dL (6.4-8.2) L 09/21/24 12:02 Albumin 2.5 g/dL (3.4-5.0) L 09/21/24 12:02 ABO/Rh O Positive 09/21/24 12:02 Antibody Screen NEGATIVE 09/21/24 12:02 Vital Signs Reviewed: Yes Subjective Interval history since last seen: Miki is experiencing painful contractions every 6-7 minutes, mod strength. stinson balloon is in place. Results Hemoglobin/Hematocrit: Hgb 13.6 g/dL (11.2-15.7) 09/21/24 12:02 Hct 39.3 % (36.0-46.0) 09/21/24 12:02 Abnormal Lab Findings: Abnormal Labs 09/21/24 12:02 Glucose 111 H Alkaline Phosphatase 214 H Total Protein 6.0 L Albumin 2.5 L
--- NOTE | 2024-09-22 16:37 | W.PM.OBNL1 ---
Date of service: 09/22/24 Time of Service: 16:37 Informed Consent Informed Consent: Induction of Labor, Risk,Benefits,Alternatives Discussed and Other (Stinson balloon insertion for cervical ripening,) Contractions Monitor Mode: External Contraction Frequency(min): every 6 Contraction Duration(sec): 60 Intensity: Mild/Moderate Fetus A Monitor: External (US) Heart Rate Baseline: 130 Variability: Moderate (6-25 BPM) Categories: Category I FHR Rhythm: Regular Accelerations: 15 X 15 Decelerations: None Assessment and Plan Assessment and plan (1) Encounter for induction of labor: Status: Acute Assessment and plan: I discussed continuing misoprostol vs. starting pitocin and Miki will consider these options after eating dinner. Will plan to check the cervix after stinson bulb is removed. Dr. Delaney was made aware of nereida status and plan for continued cervical ripening. Objective Temp Pulse Resp BP Pulse Ox 97.9 F 73 16 129/81 96 09/22/24 15:41 09/22/24 15:41 09/22/24 15:41 09/22/24 15:40 09/22/24 15:41 Laboratory Results WBC 8.61 10^3/uL (4.4-10.8) 09/21/24 12:02 RBC 4.61 10^6/uL (3.93-5.22) 09/21/24 12:02 Hgb 13.6 g/dL (11.2-15.7) 09/21/24 12:02 Hct 39.3 % (36.0-46.0) 09/21/24 12:02 MCV 85 fL (80-95) 09/21/24 12:02 MCH 29.5 pg (27.0-33.0) 09/21/24 12:02 MCHC 34.6 % (32.0-36.0) 09/21/24 12:02 RDW 12.5 % (11.7-14.6) 09/21/24 12:02 Plt Count 191 10^3/uL (130-400) 09/21/24 12:02 MPV 10.7 fL (8.0-11.0) 09/21/24 12:02 Sodium 139 mmol/L (136-145) 09/21/24 12:02 Potassium 3.6 mmol/L (3.5-5.1) 09/21/24 12:02 Chloride 106 mmol/L (98-107) 09/21/24 12:02 Carbon Dioxide 23.0 mmol/L (21.0-32.0) 09/21/24 12:02 Anion Gap 10.0 mmol/L (3-11) 09/21/24 12:02 BUN 11 mg/dL (7-18) 09/21/24 12:02 Creatinine 0.7 mg/dL (0.55-1.02) 09/21/24 12:02 Est GFR (CKD-EPI 2020) 123.01 (mL/min/1.73m2) 09/21/24 12:02 Glucose 111 mg/dL (74-106) H 09/21/24 12:02 Calcium 8.9 mg/dL (8.5-10.1) 09/21/24 12:02 Total Bilirubin 0.2 mg/dL (0.2-1.0) 09/21/24 12:02 AST 24 U/L (15-37) 09/21/24 12:02 ALT 29 U/L (14-59) 09/21/24 12:02 Alkaline Phosphatase 214 U/L (46-116) H 09/21/24 12:02 Total Protein 6.0 g/dL (6.4-8.2) L 09/21/24 12:02 Albumin 2.5 g/dL (3.4-5.0) L 09/21/24 12:02 ABO/Rh O Positive 09/21/24 12:02 Antibody Screen NEGATIVE 09/21/24 12:02 Vital Signs Reviewed: Yes Subjective Patient Reports: No new Complaints Interval history since last seen: Contractions have been mild-mod. Miki took a nap and received a third dose of misoprostol. She reports that her contractions have not increased in intensity. She has been ambulating for comfort. stinson balloon still in place Results Hemoglobin/Hematocrit: Hgb 13.6 g/dL (11.2-15.7) 09/21/24 12:02 Hct 39.3 % (36.0-46.0) 09/21/24 12:02 Abnormal Lab Findings: Abnormal Labs 09/21/24 12:02 Glucose 111 H Alkaline Phosphatase 214 H Total Protein 6.0 L Albumin 2.5 L
--- NOTE | 2024-09-22 18:31 | W.PM.OBNL1 ---
Date of service: 09/22/24 Time of Service: 18:31 Informed Consent Informed Consent: Induction of Labor, Risk,Benefits,Alternatives Discussed and Other (Kennedy balloon insertion for cervical ripening,) Pelvic Exam station: -2 Cervix Position: posterior Consistency: medium Vaginal Exam Presentation: Cephalic Comments: unable to reach cervix as Miki does not tolerate exam. Kennedy bulb removed easily. Contractions Monitor Mode: External Contraction Frequency(min): every 2-4 Contraction Duration(sec): 60 Intensity: Mild/Moderate Fetus A Monitor: External (US) Heart Rate Baseline: 130 Presentation: Cephalic Variability: Moderate (6-25 BPM) Categories: Category I FHR Rhythm: Regular Accelerations: 15 X 15 Decelerations: None Amniotic Membrane Status: Intact Assessment and Plan Assessment and plan (1) Encounter for induction of labor: Status: Acute Assessment and plan: Discussed continued cervical ripening with Enrique. Miki would like to proceed with misoprostol at this time. misoprostol 50 mcg PV was placed. Objective Temp Pulse Resp BP Pulse Ox 97.9 F 68 16 131/79 97 09/22/24 15:41 09/22/24 18:31 09/22/24 15:41 09/22/24 18:30 09/22/24 18:31 Laboratory Results WBC 8.61 10^3/uL (4.4-10.8) 09/21/24 12:02 RBC 4.61 10^6/uL (3.93-5.22) 09/21/24 12:02 Hgb 13.6 g/dL (11.2-15.7) 09/21/24 12:02 Hct 39.3 % (36.0-46.0) 09/21/24 12:02 MCV 85 fL (80-95) 09/21/24 12:02 MCH 29.5 pg (27.0-33.0) 09/21/24 12:02 MCHC 34.6 % (32.0-36.0) 09/21/24 12:02 RDW 12.5 % (11.7-14.6) 09/21/24 12:02 Plt Count 191 10^3/uL (130-400) 09/21/24 12:02 MPV 10.7 fL (8.0-11.0) 09/21/24 12:02 Sodium 139 mmol/L (136-145) 09/21/24 12:02 Potassium 3.6 mmol/L (3.5-5.1) 09/21/24 12:02 Chloride 106 mmol/L (98-107) 09/21/24 12:02 Carbon Dioxide 23.0 mmol/L (21.0-32.0) 09/21/24 12:02 Anion Gap 10.0 mmol/L (3-11) 09/21/24 12:02 BUN 11 mg/dL (7-18) 09/21/24 12:02 Creatinine 0.7 mg/dL (0.55-1.02) 09/21/24 12:02 Est GFR (CKD-EPI 2020) 123.01 (mL/min/1.73m2) 09/21/24 12:02 Glucose 111 mg/dL (74-106) H 09/21/24 12:02 Calcium 8.9 mg/dL (8.5-10.1) 09/21/24 12:02 Total Bilirubin 0.2 mg/dL (0.2-1.0) 09/21/24 12:02 AST 24 U/L (15-37) 09/21/24 12:02 ALT 29 U/L (14-59) 09/21/24 12:02 Alkaline Phosphatase 214 U/L (46-116) H 09/21/24 12:02 Total Protein 6.0 g/dL (6.4-8.2) L 09/21/24 12:02 Albumin 2.5 g/dL (3.4-5.0) L 09/21/24 12:02 ABO/Rh O Positive 09/21/24 12:02 Antibody Screen NEGATIVE 09/21/24 12:02 Vital Signs Reviewed: Yes Subjective Patient Reports: No new Complaints Interval history since last seen: Miki reports more discomfort with contractions. Results Hemoglobin/Hematocrit: Hgb 13.6 g/dL (11.2-15.7) 09/21/24 12:02 Hct 39.3 % (36.0-46.0) 09/21/24 12:02 Abnormal Lab Findings: Abnormal Labs 09/21/24 12:02 Glucose 111 H Alkaline Phosphatase 214 H Total Protein 6.0 L Albumin 2.5 L
--- NOTE | 2024-09-22 23:14 | W.PM.OBNL1 ---
Date of service: 09/22/24 Time of Service: 23:14 Informed Consent Informed Consent: Induction of Labor, Risk,Benefits,Alternatives Discussed and Other (Kennedy balloon insertion for cervical ripening,) Pelvic Exam Effacement (%): 80 station: -2 Cervix Position: posterior Consistency: soft Comments: Unable to reach cervical os. Miki did not tolerate cervical exam, nitrous oxide for pain relief offered and declined. Contractions Monitor Mode: External Contraction Frequency(min): every 3-4 minutes Contraction Duration(sec): 50-60 Intensity: Mild/Moderate Fetus A Monitor: External (US) Heart Rate Baseline: 135 Presentation: Cephalic Variability: Moderate (6-25 BPM) Categories: Category I FHR Rhythm: Regular Accelerations: 15 X 15 Decelerations: None Amniotic Membrane Status: Intact Assessment and Plan Assessment and plan (1) Encounter for induction of labor: Status: Acute Assessment and plan: Discussed options with Miki of continued cervical ripening with cervidil and ambien PRN for rest or stopping medication overnight for rest. She is considering her options. Objective Temp Pulse Resp BP Pulse Ox 97.5 F L 70 18 135/76 97 09/22/24 22:20 09/22/24 22:21 09/22/24 18:31 09/22/24 22:21 09/22/24 18:31 Laboratory Results WBC 8.61 10^3/uL (4.4-10.8) 09/21/24 12:02 RBC 4.61 10^6/uL (3.93-5.22) 09/21/24 12:02 Hgb 13.6 g/dL (11.2-15.7) 09/21/24 12:02 Hct 39.3 % (36.0-46.0) 09/21/24 12:02 MCV 85 fL (80-95) 09/21/24 12:02 MCH 29.5 pg (27.0-33.0) 09/21/24 12:02 MCHC 34.6 % (32.0-36.0) 09/21/24 12:02 RDW 12.5 % (11.7-14.6) 09/21/24 12:02 Plt Count 191 10^3/uL (130-400) 09/21/24 12:02 MPV 10.7 fL (8.0-11.0) 09/21/24 12:02 Sodium 139 mmol/L (136-145) 09/21/24 12:02 Potassium 3.6 mmol/L (3.5-5.1) 09/21/24 12:02 Chloride 106 mmol/L (98-107) 09/21/24 12:02 Carbon Dioxide 23.0 mmol/L (21.0-32.0) 09/21/24 12:02 Anion Gap 10.0 mmol/L (3-11) 09/21/24 12:02 BUN 11 mg/dL (7-18) 09/21/24 12:02 Creatinine 0.7 mg/dL (0.55-1.02) 09/21/24 12:02 Est GFR (CKD-EPI 2020) 123.01 (mL/min/1.73m2) 09/21/24 12:02 Glucose 111 mg/dL (74-106) H 09/21/24 12:02 Calcium 8.9 mg/dL (8.5-10.1) 09/21/24 12:02 Total Bilirubin 0.2 mg/dL (0.2-1.0) 09/21/24 12:02 AST 24 U/L (15-37) 09/21/24 12:02 ALT 29 U/L (14-59) 09/21/24 12:02 Alkaline Phosphatase 214 U/L (46-116) H 09/21/24 12:02 Total Protein 6.0 g/dL (6.4-8.2) L 09/21/24 12:02 Albumin 2.5 g/dL (3.4-5.0) L 09/21/24 12:02 ABO/Rh O Positive 09/21/24 12:02 Antibody Screen NEGATIVE 09/21/24 12:02 Subjective Patient Reports: No new Complaints Interval history since last seen: Miki continues to experience contractions which are painful. She denies need for pain relief. She complains of fatigue. Results Hemoglobin/Hematocrit: Hgb 13.6 g/dL (11.2-15.7) 09/21/24 12:02 Hct 39.3 % (36.0-46.0) 09/21/24 12:02 Abnormal Lab Findings: Abnormal Labs 09/21/24 12:02 Glucose 111 H Alkaline Phosphatase 214 H Total Protein 6.0 L Albumin 2.5 L
[2024-09-23] VITALS (266 sets, daily range): BP systolic 90–148; BP diastolic 52–92; PULSE 53–140; RESP 16–18; TEMP 35.7–36.8; O2SAT 88–100; BMI 30.8
[2024-09-23] MEDS: Zolpidem 10 MG TAB PO (00:02)
[2024-09-23] MEDS: Lactated Ringers 1,000 ML 125 ML IV ×3 (02:35→12:26)
[2024-09-23] MEDS: Lactated Ringers 1,000 ML 999 ML IV (02:38)
[2024-09-23] MEDS: FentaNYL/ROPIvacaine 2 mcg/ml and 0.1% 200 ML CADD Cassette EP ×2 (03:02→14:21)
--- NOTE | 2024-09-23 03:24 | ANES.PREOP_ITS ---
General Info Date of Service Date Performed: 09/23/24 Height: 5 ft 3.5 in Weight: 80.286 kg Body Mass Index (BMI): 30.8 Meds Allergies and Home Medications Allergies Allergy/AdvReac Type Severity Reaction Status Date / Time prochlorperazine edisylate Allergy Severe dystonic Verified 09/14/24 15:39 (From Compazine) reaction amoxicillin (Amoxicillin) Allergy Mild Skin Rash Verified 09/14/24 15:39 Home Medication ?Medication ?Instructions ?Recorded vit no.95-ferrous 1 tab PO DAILY 08/30/23 fumarate 28 mg-folic acid 800 mcg tablet () docusate sodium 100 mg capsule 100 mg PO BID PRN 02/14 sertraline 50 mg tablet 75 mg (1.5 x 50 mg) PO DAILY 90 07/20/24 days #135 tabs doxylamine succinate 25 mg tablet 12.5 mg PO QHS PRN 0 09/21/24 (Nighttime Sleep-Aid (doxylamine)) Current Visit Medications: Current Medications Generic Name Dose Route Start Last Admin Trade Name Freq PRN Reason Stop Dose Admin Fentanyl/Ropivacaine 200 ml 09/23/24 02:15 09/23/24 03:02 Fentanyl/Ropivacaine 2 Mcg/Ml And 0.1% 200 Ml Cadd Cassette EP 200 ml DIRECTED EL Administration Ringer's Solution 1,000 mls @ 125 mls/hr 09/23/24 02:30 09/23/24 03:06 IV 125 mls/hr INFUSION EL Infusion Misoprostol 50 mcg 09/21/24 12:00 09/22/24 18:38 Misoprostol 25 Mcg Tab PO Not Given Q4H EL Sertraline HCl 75 mg 09/22/24 08:30 09/22/24 08:31 Sertraline 50 Mg Tab PO 75 mg DAILY EL Administration Terbutaline Sulfate 0.25 mg 09/21/24 11:51 Terbutaline 1 Mg/Ml Vial SC PRN PRN Zolpidem Tartrate 10 mg 09/22/24 23:00 09/23/24 00:02 Zolpidem 10 Mg Tab PO 10 mg HS EL Administration PFSH Active Problems Active Problems: Problem Status Onset Code Encounter for induction of labor Acute Z34.90 Gestational hypertension affecting first Acute O13.9 Susceptible to varicella (non-immune), currently Acute O09.899, Z28.39 Elevated alkaline phosphatase level Acute R74.8 Penicillin-induced allergic rash Acute L27.0, T36.0X5A Acute Z34.90 Anxiety Chronic F41.9 Medical History Medical History (Updated 09/21/24 @ 17:11 by Cherelle Holt) History of miscarriage, currently Family history of hypertension in father Low back pain PT Missed menses 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 Change in bowel habit Infrequent colicky, crampy left lower quadrant pain associated with loose stool Acne vulgaris Chronic abdominal pain Lipoma of forehead Allergic rhinitis Anorexia nervosa Seborrhea capitis Raynauds phenomenon Surgical History Surgical History S/P excision of lipoma H/O colonoscopy 2020 [place] teeth extracted Tonsillectomy Tobacco Smoking/Tobacco Use Status: Never Alcohol Alcohol Intake: current Alcohol intake frequency: holidays/special occasions only Substance Use Substance use: Never Substance use type: does not use Prental History History 2 2 Para 0 Hx # Term Pregnancies 0 Multiple births 0 Hx # Pregnancies 0 Ectopic pregnancies 0 AB induced 0 Hx Number of Living Children 0 AB spontaneous 1 Past Pregnancies Del. Date GA/Weeks # Preg Succ Route Wgt Sex Labor Lgth Anesth esia Location Prov Complic 08/31/[address] Farooq Delivery Date: 08/31/23 Last Updated by: Astrid Gutiérrez, KRISTAN D and C. products of conception revealed partial Molar or villous dysmorphism Vital Signs and Lab Results Vital Signs Most Recent Vital Signs in EMR: Most Recent Vital Signs Temp Pulse Resp BP Pulse Ox 36.3 C L 67 18 122/73 97 09/23/24 01:47 09/23/24 03:24 09/22/24 18:31 09/23/24 03:21 09/23/24 03:22 Lab Results 09/21/24 12:02 09/21/24 12:02 Blood Type / Crossmatch: 2 Antibody Screen NEGATIVE 09/21/24 Complete Blood Count: 2 WBC, (4.4-10.8) 8.61 10^3/uL 09/21/24, 12:02 RBC, (3.93-5.22) 4.61 10^6/uL 09/21/24, 12:02 Hgb, (11.2-15.7) 13.6 g/dL 09/21/24, 12:02 Hct, (36.0-46.0) 39.3 % 09/21/24, 12:02 Plt Count, (130-400) 191 10^3/uL 09/21/24, 12:02 Complete Metabolic Panel: 2 Sodium, (136-145) 139 mmol/L 09/21/24, 12:02 Potassium, (3.5-5.1) 3.6 mmol/L 09/21/24, 12:02 Chloride, (98-107) 106 mmol/L 09/21/24, 12:02 Carbon Dioxide, (21.0-32.0) 23.0 mmol/L 09/21/24, 12 :02 BUN, (7-18) 11 mg/dL 09/21/24, 12:02 Creatinine, (0.55-1.02) 0.7 mg/dL 09/21/24, 12:02 Est GFR (CKD-EPI 2020), (mL/min/1.73m2) 123.01 09/21/24, 12:02 Calcium, (8.5-10.1) 8.9 mg/dL 09/21/24, 12:02 Albumin, (3.4-5.0) 2.5 g/dL L 09/21/24, 12:02 Glucose, (74-106) 111 mg/dL H 09/21/24, 12:02 Liver Function Panel: 2 ALT, (14-59) 29 U/L 09/21/24, 12:02 AST, (15-37) 24 U/L 09/21/24, 12:02 Imaging and Studies Imaging and Studies Study information below may be from another EMR and interpreted by another provider. Please see original notes in EMR for more complete details. EKG Summary: EKG PATIENT NAME: Miki Mcclure UNIT #: [id number] ORDERING PROVIDER: Carmella Maciel DO PRIMARY CARE PROVIDER: CHAYITO RAMACHANDRAN MD DATE/TIME OF SERVICE: 12/02/20 1824 : 2000 PERFORMING LOCATION: ER APPROVED REPORT Exam: Resting ECG Reason for Exam: chest pain Patient Location: E HR:80 bpm ECG Measurements Heart Rate 80 AXIS CO 138 P 76 QRSd 81 QRS 85 QT 411 T51 QTc 474 Conclusion Sinus rhythm...normal P axis, V-rate 60- 99. Sinus. Artifact from pt movement. No STEMI. I have reviewed and interpreted ECG and agree with software generated interpretation. - <Electronically signed by CARMELLA MACIEL DO in OV> E-Sign Date: 12/02/20 E-Sign Time: 1831 ADDENDUM APPROVED REPORT Exam: Resting ECG Reason for Exam: chest pain Patient Location: E HR:80 bpm ECG Measurements Heart Rate 80 AXIS CO 138 P 76 QRSd 81 QRS 85 QT 411 T51 QTc 474 Conclusion Sinus rhythm...normal P axis, V-rate 60- 99. Sinus. Artifact from pt movement. No STEMI. I have reviewed and interpreted ECG and agree with software generated interpretation. I have reviewed and I agree with the emergency room physician's ECG interpretation. Electronically signed by: <Electronically signed by Chastity Mota M.D. in OV> 12/05/20 0909 Cosigned by: Anesthesia Assessment and Plan Anesthesia History Personal History: No History of Anesthesia Complications Family History: No Family History of Anesthesia Complications Exercise Tolerance Exercise Tolerance: Metabolic Equivalents>4 Pertinent Negatives Pertinent Negatives: No Symptoms of GERD Cardiac & Pulmonary Exam Cardiac Exam: Normal S1/S2 Heart Sounds Pulmonary Exam: Clear Bilateral Breath Sounds Implantable Cardiac Device Does patient have a Pacemaker or an ICD?: No Airway Exam Known Difficult Airway: No Mallampati Class: 3 Mouth Opening: Normal (> 3cm) Thyromental Distance: Greater than 3 cm Neck Range of Motion: Full ROM Neck Circumference: Normal Teeth Condition: Normal Dentition ASA Classification ASA Score: ASA 2 Emergency Case?: No NPO Status NPO Status: NPO Clear Liquids>2 hours Status Status: Confirmed Anesthesia Plan Resuscitation Status: Full Code Anesthesia Technique: Labor Epidural Airway Planned: Natural Airway Monitors Used: Standard Monitors
--- NOTE | 2024-09-23 03:26 | W.ANESNEU ---
Epidural/Spinal Catheter Date Performed: 09/23/24 Procedure Start: 02:44 Procedure Stop: 03:15 Requesting Provider: Astrid Gutiérrez Procedure Location: Obstetrics Reason Performed: Labor Epidural Standard Monitors Applied: ECG, Blood Pressure, SpO2 and See EMR for corresponding vital signs Patient Position: Sitting Sedation Given (Indicate Dose Given): No Sedation given Patient Mental Status: Awake Sterility: Hand Hygiene, Surgical Cap, Surgical Mask, Eye Protection and Chlorhexidine Procedure Location: L3-L4 Interspace Epidural Needle: Tuohy 18 Gauge Needle Length: 3.5 Inch Needle Approach: Midline Epidural Procedure: Skin Prepped, Sterile Drape Placed, 1% Lidocaine to skin and subcutaneous tissue with 25G needle, Tuohy Needle placed, SHANA to Saline Used, Epidural Catheter Placed, Negative Heme, Negative CSF Flow and Tuohy Needle Removed Catheter Placed?: Catheter Placed Test Dose (Indicate Dose Given): 3ml 1.5% Lidocaine with 1:200K Epinephrine Given Loss of Resistance Depth (cm): 6 Catheter depth at skin (cm): 12 Dressing: [place] Dressing Placed, Tegaderm Applied and Mastisol Used Epidural Provider Bolus (Indicate Dose Given): Total Ropivacaine 0.1% with Fentanyl 2mcg/ml Given from pump. (ml) Dose:: 7cc Additives (Indicate Dose Given ): None Infusion Medication: No Infusion Started Post Procedure Pain score (0-10): 4 Block Level: T8 Paresthesia: None Ultrasound: Used to marco a site Number of Attempts (See previous attempts in note section): 1 Procedure Tolerated: No Complications and Patient tolerated well Procedure Outcome: Successful Performed By: Wilfrido Lujan
--- NOTE | 2024-09-23 03:29 | W.PM.OBNL1 ---
Date of service: 09/23/24 Time of Service: 03:29 Informed Consent Informed Consent: Induction of Labor, Risk,Benefits,Alternatives Discussed and Other (Kennedy balloon insertion for cervical ripening,) Pelvic Exam Dilation: 4 Effacement (%): 90 station: -2 Cervix Position: posterior Consistency: soft Contractions Monitor Mode: External Contraction Frequency(min): every 2-3 Contraction Duration(sec): 60 Intensity: Moderate/Strong Fetus A Monitor: External (US) Heart Rate Baseline: 130 Presentation: Cephalic Variability: Moderate (6-25 BPM) Categories: Category I FHR Rhythm: Regular Accelerations: 15 X 15 Decelerations: None Amniotic Membrane Status: Intact Assessment and Plan Assessment and plan (1) Encounter for induction of labor: Status: Acute Assessment and plan: Rest was encouraged and anticipate , Objective Temp Pulse Resp BP Pulse Ox 97.3 F L 69 18 132/81 96 09/23/24 01:47 09/23/24 03:28 09/22/24 18:31 09/23/24 03:27 09/23/24 03:27 Laboratory Results WBC 8.61 10^3/uL (4.4-10.8) 09/21/24 12:02 RBC 4.61 10^6/uL (3.93-5.22) 09/21/24 12:02 Hgb 13.6 g/dL (11.2-15.7) 09/21/24 12:02 Hct 39.3 % (36.0-46.0) 09/21/24 12:02 MCV 85 fL (80-95) 09/21/24 12:02 MCH 29.5 pg (27.0-33.0) 09/21/24 12:02 MCHC 34.6 % (32.0-36.0) 09/21/24 12:02 RDW 12.5 % (11.7-14.6) 09/21/24 12:02 Plt Count 191 10^3/uL (130-400) 09/21/24 12:02 MPV 10.7 fL (8.0-11.0) 09/21/24 12:02 Sodium 139 mmol/L (136-145) 09/21/24 12:02 Potassium 3.6 mmol/L (3.5-5.1) 09/21/24 12:02 Chloride 106 mmol/L (98-107) 09/21/24 12:02 Carbon Dioxide 23.0 mmol/L (21.0-32.0) 09/21/24 12:02 Anion Gap 10.0 mmol/L (3-11) 09/21/24 12:02 BUN 11 mg/dL (7-18) 09/21/24 12:02 Creatinine 0.7 mg/dL (0.55-1.02) 09/21/24 12:02 Est GFR (CKD-EPI 2020) 123.01 (mL/min/1.73m2) 09/21/24 12:02 Glucose 111 mg/dL (74-106) H 09/21/24 12:02 Calcium 8.9 mg/dL (8.5-10.1) 09/21/24 12:02 Total Bilirubin 0.2 mg/dL (0.2-1.0) 09/21/24 12:02 AST 24 U/L (15-37) 09/21/24 12:02 ALT 29 U/L (14-59) 09/21/24 12:02 Alkaline Phosphatase 214 U/L (46-116) H 09/21/24 12:02 Total Protein 6.0 g/dL (6.4-8.2) L 09/21/24 12:02 Albumin 2.5 g/dL (3.4-5.0) L 09/21/24 12:02 ABO/Rh O Positive 09/21/24 12:02 Antibody Screen NEGATIVE 09/21/24 12:02 Vital Signs Reviewed: Yes Subjective Patient Reports: New Complaints Interval history since last seen: Tia was unable to rest with ambien PO and began experiencing strong regular contractions. Deonte baltazarkins BEAM DEPARTMENT SUPERVISOR soke to her about the epidural and she and Judd decided to proceed with epidural for comfort. The epidural was not relieving pain on the left side and catheter was adjusted. Results Hemoglobin/Hematocrit: Hgb 13.6 g/dL (11.2-15.7) 09/21/24 12:02 Hct 39.3 % (36.0-46.0) 09/21/24 12:02 Abnormal Lab Findings: Abnormal Labs 09/21/24 12:02 Glucose 111 H Alkaline Phosphatase 214 H Total Protein 6.0 L Albumin 2.5 L
--- NOTE | 2024-09-23 03:56 | W.ANESNEU ---
Epidural/Spinal Daily Note Date Performed: 09/23/24 Assessment Time: 03:56 Patient Location: Obstetrics Catheter Type in Place: Epidural Catheter Dressing Assessment: Dressing intact with good adherence and New Tegaderm Dressing Placed Using Sterile Technique Catheter Assessment: Catheter Labeled and Intact and Functioning Previous Catheter Depth Noted (cm): 12 Current Catheter Depth (cm): 10 Current Medication Infusion: Ropivacaine 0.1% with Fentanyl 2mcg/ml Current Maintenance Infusion Rate (ml/hour): 11 Current PCEA Bolus Dose (ml): 5 Current Pain Score (0-10): 2 Medication Infusion Stopped, Catheter Removal Planned: No Sensory / Motor Block Comments: Pt described better coverage on right side and more sensation on left. Epidural cath pulled back from 12 to 10cm and bolus dossen of 3cc given. Maintenance dose increased to 11cc/hour. New Bolus Given or Change in Infusion Made: Yes Standard Monitors Applied: ECG, Blood Pressure, SpO2 and See EMR for corresponding vital signs Epidural Provider Bolus (Indicate Dose Given): Total Ropivacaine 0.1% with Fentanyl 2mcg/ml Given from pump. (ml) Dose:: 3cc Additives (Indicate Dose Given ): None Infusion Medication: New Infusion Medication Medication Infusion: Ropivacaine 0.1% with Fentanyl 2mcg/ml (11) New Maintenance Infusion Rate (ml/hour): 11 New PCEA Bolus Dose (ml): 5 Completed By: Wilfrido Lujan
--- NOTE | 2024-09-23 08:04 | W.PM.OBNL1 ---
Date of service: 09/23/24 Time of Service: 08:04 Informed Consent Informed Consent: Induction of Labor, Risk,Benefits,Alternatives Discussed and Other (Kennedy balloon insertion for cervical ripening,) Pelvic Exam Dilation: 5 Effacement (%): 90 station: -1 Cervix Position: posterior Consistency: soft Vaginal Exam Presentation: Cephalic Contractions Monitor Mode: External Contraction Frequency(min): every 3 minutes Contraction Duration(sec): 60 Intensity: Strong Fetus A Monitor: External (US) Heart Rate Baseline: 140 Presentation: Cephalic Variability: Moderate (6-25 BPM) Categories: Category I FHR Rhythm: Regular Accelerations: 15 X 15 Decelerations: None Amniotic Membrane Status: Intact Assessment and Plan Assessment and plan (1) Encounter for induction of labor: Status: Acute Assessment and plan: Rest was encouraged. zofran IV ordered and po sertraline. Comfort measures. Pitocin augmentation ordered. Anticipate . Objective Temp Pulse Resp BP Pulse Ox 98.0 F 66 16 116/63 96 09/23/24 03:57 09/23/24 07:57 09/23/24 06:33 09/23/24 07:46 09/23/24 07:57 Laboratory Results WBC 8.61 10^3/uL (4.4-10.8) 09/21/24 12:02 RBC 4.61 10^6/uL (3.93-5.22) 09/21/24 12:02 Hgb 13.6 g/dL (11.2-15.7) 09/21/24 12:02 Hct 39.3 % (36.0-46.0) 09/21/24 12:02 MCV 85 fL (80-95) 09/21/24 12:02 MCH 29.5 pg (27.0-33.0) 09/21/24 12:02 MCHC 34.6 % (32.0-36.0) 09/21/24 12:02 RDW 12.5 % (11.7-14.6) 09/21/24 12:02 Plt Count 191 10^3/uL (130-400) 09/21/24 12:02 MPV 10.7 fL (8.0-11.0) 09/21/24 12:02 Sodium 139 mmol/L (136-145) 09/21/24 12:02 Potassium 3.6 mmol/L (3.5-5.1) 09/21/24 12:02 Chloride 106 mmol/L (98-107) 09/21/24 12:02 Carbon Dioxide 23.0 mmol/L (21.0-32.0) 09/21/24 12:02 Anion Gap 10.0 mmol/L (3-11) 09/21/24 12:02 BUN 11 mg/dL (7-18) 09/21/24 12:02 Creatinine 0.7 mg/dL (0.55-1.02) 09/21/24 12:02 Est GFR (CKD-EPI 2020) 123.01 (mL/min/1.73m2) 09/21/24 12:02 Glucose 111 mg/dL (74-106) H 09/21/24 12:02 Calcium 8.9 mg/dL (8.5-10.1) 09/21/24 12:02 Total Bilirubin 0.2 mg/dL (0.2-1.0) 09/21/24 12:02 AST 24 U/L (15-37) 09/21/24 12:02 ALT 29 U/L (14-59) 09/21/24 12:02 Alkaline Phosphatase 214 U/L (46-116) H 09/21/24 12:02 Total Protein 6.0 g/dL (6.4-8.2) L 09/21/24 12:02 Albumin 2.5 g/dL (3.4-5.0) L 09/21/24 12:02 ABO/Rh O Positive 09/21/24 12:02 Antibody Screen NEGATIVE 09/21/24 12:02 Vital Signs Reviewed: Yes Subjective Patient Reports: No new Complaints Interval history since last seen: Miki has been sleeping soundly and is very comfortable. she awoke and voided 150 cc and was straight cathed for 50 cc clear urine. She vomited on the bedpan. Results Hemoglobin/Hematocrit: Hgb 13.6 g/dL (11.2-15.7) 09/21/24 12:02 Hct 39.3 % (36.0-46.0) 09/21/24 12:02 Abnormal Lab Findings: Abnormal Labs 09/21/24 12:02 Glucose 111 H Alkaline Phosphatase 214 H Total Protein 6.0 L Albumin 2.5 L
[2024-09-23] MEDS: Ondansetron 4 MG/2 ML VIAL IVP ×2 (08:34→12:45)
[2024-09-23] MEDS: Sertraline 50 MG TAB 75 MG PO (08:37)
[2024-09-23] MEDS: Oxytocin/Normal Saline 30 UNIT/500 ML BAG 2 UNITS IV (08:53)
[2024-09-23 11:23] LABS: HCT 37.8 % (36.0-46.0); HGB 13.0 g/dL (11.2-15.7); MCH 29.1 pg (27.0-33.0); MCHC 34.4 % (32.0-36.0); MCV 85 fL (80-95); MPV 10.5 fL (8.0-11.0); Platelet Count 183 10^3/uL (130-400); RBC 4.46 10^6/uL (3.93-5.22); RDW 12.3 % (11.7-14.6); RDW-SD 37.4 fL; WBC 12.72 10^3/uL (4.4-10.8)
--- NOTE | 2024-09-23 11:32 | PGE_ITS ---
Date of Service Date of service: 09/23/24 Time of Service: 11:32 Assessment and Plan Assessment and plan (1) Encounter for induction of labor: Status: Acute Assessment and plan: 23-year-old G1, P0 at 39 and 3 as dated by LMP equal to 7-week ultrasound ? Rh+ /rubella immune/VZV nonimmune/GBS negative ? complicated by excessive leaking in , isolated Raynaud's phenomenon, history of molar , VZV nonimmune ? Undergoing induction of labor for gestational hypertension; blood pressures have been mostly in the 130s to 140s over 70s to 90s; no signs or symptoms of preeclampsia and initial labs were appropriate - - - - - - - - - - - - - - - - - - - 09/23/2024 (Franci): Overall clinical appearance of the patient is reassuring; decelerations have resolved with appropriate measures and contractions are stable without augmentation. It is reassuring that the patient is nearing delivery, and I am hopeful that she will be able to have a vaginal d elivery. I discussed the clinical assessment with the patient and her family at bedside and assured them that I would remain in house. Snuff Container Inspector has appropriate plans for repositioning and approach in the event of further decelerations. Discussed need for having placenta sent given history of molar . I will continue to be available as needed. - - - - - - - - - - - - - - - - - - - Subjective Subjective Interval history since last seen: Called into see patient due to recent suspicious changes in FHT. 23 yo at 39 3/7 as dated by LMP equal to 7 wk US undergoing IOL for gHTN. Her is complicated by history of an isolated episode of Raynaud's phenomenon, and history of partial molar . A review of her records also indicates excessive weight gain in (+49 pounds, 28-week 1 hour OGTT 104, no recent growth ultrasound) as well as VZV nonimmune status. She is noted to be GBS negative as of 08/31/2024. Patient was brought in for scheduled induction of labor on the afternoon of 710. She was induced with 50 mcg of p.o. Cytotec. Following send rest, a cervical Kennedy was placed, and p.o. Cytotec was continued. The patient then received an epidural, and was augmented with Pitocin. Around 9 AM, the patient reportedly underwent AROM to clear fluid. Around 11 AM, I was called in to speak the patient given some recent changes in heart tones. A review of the heart tones found variable like activity starting around 10:46 AM which reportedly resolved with repositioning, fluid bolus, and discontinuing Pitocin. Leading up to this point, her heart tones are overall reassuring and contractions are approximately every 2 to 4 minutes. Snuff Container Inspector reports recent check of anterior lip. Kennedy catheter recently placed. Exam Narrative Exam Narrative: General: Well-nourished female resting comfortably with epidural Pulmonary: No evidence of respiratory distress Abdomen: Gravid; tolerating pressure of monitors well Extremities: +1 edema noted equally bilaterally Psych: Nervous but calm, cooperative. Surrounded by supportive family SVE: (Per annealing furnace operator) anterior lip/100/+1 heart tones: Currently category 1 [place]: Every 4 (currently without augmentation) Objective Last Vital Signs Temp 98.0 F 09/23/24 03:57 Pulse 68 09/23/24 11:31 Resp 16 09/23/24 06:33 BP 90/55 L 09/23/24 11:31 Pulse Ox 96 09/23/24 11:30 Laboratory Results - last 24 hr 09/23/24 11:15 WBC 12.72 H RBC 4.46 Hgb 13.0 Hct 37.8 MCV 85 MCH 29.1 MCHC 34.4 RDW 12.3 Plt Count 183 MPV 10.5 Time Spent with Patient Time Spent with Patient: 25-34 minutes Time was spent: preparing to see the patient(eg.review tests), obtaining and/or reviewing separately otained hiistory, ordering medications,tests, procedures, referring, communicating with other health care connector, indepentently interpreting results and counseling the patient
--- NOTE | 2024-09-23 11:34 | W.PM.OBNL1 ---
Date of service: 09/23/24 Time of Service: 11:35 Informed Consent Informed Consent: Induction of Labor, Risk,Benefits,Alternatives Discussed and Other (Kennedy balloon insertion for cervical ripening,) Pelvic Exam Dilation: 9 station: +1 Cervix Position: mid Consistency: soft Contractions Monitor Mode: External Contraction Frequency(min): every 3 min Contraction Duration(sec): 60-80 Intensity: Strong Fetus A Monitor: External (US) Heart Rate Baseline: 120 Variability: Moderate (6-25 BPM) Categories: Category I FHR Rhythm: Regular Accelerations: 15 X 15 Decelerations: Variable Recurrence: Episodic Amniotic Membrane Status: Ruptured Assessment Note: She began to feel pelvic pressure and was examined and was 8 cms. Shortly after exam, variable decelerations occurred with contractions down to 100-110. Kennedy catheter was placed for approximately 200 cc clear urine. IV bolus of 500 cc was given and pitocin was discontinued. FECG placed and she was found to be 9 cms. Assessment and Plan Assessment and plan (1) Encounter for induction of labor: Status: Acute Assessment and plan: Dr Koroma was notified of FHR pattern and patient's progress and she came in to meet [facility]. She was positioned in hands and knees position with improvement in heart rate pattern . Behavioral Therapist forest and conservation worker Dr. jameson was notified of patient's status. Will continue to asess labor progress and heart rate pattern. Objective Abnormal lab results 09/23/24 Range/Units 11:15 WBC 12.72 H (4.4-10.8) 10^3/uL Temp Pulse Resp BP Pulse Ox 98.0 F 73 16 90/55 L 96 09/23/24 03:57 09/23/24 11:33 09/23/24 06:33 09/23/24 11:31 09/23/24 11:30 Laboratory Results WBC 12.72 10^3/uL (4.4-10.8) H 09/23/24 11:15 RBC 4.46 10^6/uL (3.93-5.22) 09/23/24 11:15 Hgb 13.0 g/dL (11.2-15.7) 09/23/24 11:15 Hct 37.8 % (36.0-46.0) 09/23/24 11:15 MCV 85 fL (80-95) 09/23/24 11:15 MCH 29.1 pg (27.0-33.0) 09/23/24 11:15 MCHC 34.4 % (32.0-36.0) 09/23/24 11:15 RDW 12.3 % (11.7-14.6) 09/23/24 11:15 Plt Count 183 10^3/uL (130-400) 09/23/24 11:15 MPV 10.5 fL (8.0-11.0) 09/23/24 11:15 Sodium 139 mmol/L (136-145) 09/21/24 12:02 Potassium 3.6 mmol/L (3.5-5.1) 09/21/24 12:02 Chloride 106 mmol/L (98-107) 09/21/24 12:02 Carbon Dioxide 23.0 mmol/L (21.0-32.0) 09/21/24 12:02 Anion Gap 10.0 mmol/L (3-11) 09/21/24 12:02 BUN 11 mg/dL (7-18) 09/21/24 12:02 Creatinine 0.7 mg/dL (0.55-1.02) 09/21/24 12:02 Est GFR (CKD-EPI 2020) 123.01 (mL/min/1.73m2) 09/21/24 12:02 Glucose 111 mg/dL (74-106) H 09/21/24 12:02 Calcium 8.9 mg/dL (8.5-10.1) 09/21/24 12:02 Total Bilirubin 0.2 mg/dL (0.2-1.0) 09/21/24 12:02 AST 24 U/L (15-37) 09/21/24 12:02 ALT 29 U/L (14-59) 09/21/24 12:02 Alkaline Phosphatase 214 U/L (46-116) H 09/21/24 12:02 Total Protein 6.0 g/dL (6.4-8.2) L 09/21/24 12:02 Albumin 2.5 g/dL (3.4-5.0) L 09/21/24 12:02 ABO/Rh O Positive 09/21/24 12:02 Antibody Screen NEGATIVE 09/21/24 12:02 Subjective Patient Reports: New Complaints Interval history since last seen: Miki has been resting comfortably. AROM occurred for a large amount of clear fluid at 5-6 cms dilated and -1 station. pitocin was increased to 6 mu/min. Results Hemoglobin/Hematocrit: Hgb 13.0 g/dL (11.2-15.7) 09/23/24 11:15 Hct 37.8 % (36.0-46.0) 09/23/24 11:15 Abnormal Lab Findings: Abnormal Labs 09/21/24 09/23/24 12:02 11:15 WBC 12.72 H Glucose 111 H Alkaline Phosphatase 214 H Total Protein 6.0 L Albumin 2.5 L
[2024-09-23 11:52] LABS: ALT 25 U/L (14-59); AST 23 U/L (15-37); Albumin 2.3 g/dL (3.4-5.0); Alkaline Phosphatase 191 U/L (46-116); Anion Gap 11.3 mmol/L (3-11); BUN 8 mg/dL (7-18); Bilirubin, Total 0.4 mg/dL (0.2-1.0); CO2 22.7 mmol/L (21.0-32.0); Calcium 8.8 mg/dL (8.5-10.1); Chloride 104 mmol/L (98-107); Estimated GFR 127.67 (mL/min/1.73m2); Glucose 85 mg/dL (74-106); Potassium 4.0 mmol/L (3.5-5.1); Sodium 138 mmol/L (136-145); Total Protein 5.6 g/dL (6.4-8.2); Uric Acid 5.3 mg/dL (2.6-6.0)
--- NOTE | 2024-09-23 15:52 | PLAC_PTH ---
PATIENT: Miki Day LOC: OBS U#:[id number] AGE/SX: 23/F ROOM: OBS.304 RE09/21/[address]: Cherelle Holt CNM : 2000 BED: A DIS: 09/24/2024 SPEC #: [id number] RECD: 09/25/24 12:54 STATUS: DARYL REQ #: [id number] [place]: 09/23/24 15:[address]: Cherelle Holt DEPT: Surgical Specimen RECD BY: Kristina Martinez ENTERED: 09/25/24 12:55 SP TYPE: PLAC OTHR DR: Heide Cervantes Tissues: 1 - PLACENTA (3RD TRIMESTER) Procedures: GROSS AND MICRO LEVEL 5 Comments: [id number]
[2024-09-23] MEDS: Ibuprofen 600 MG TAB PO (20:40)
[2024-09-23] MEDS: Hamamelis Leaf/Glycerin 100 EACH BOX PR (20:40)
[2024-09-23] MEDS: Dibucaine 1% 28 GM TUBE TP (20:43)
[2024-09-23] MEDS: Docusate Sodium 100 MG CAP PO (20:44)
[2024-09-23] MEDS: Acetaminophen 325 MG TAB 650 MG PO (21:28)
[2024-09-24] MEDS: Acetaminophen 325 MG TAB 650 MG PO ×4 (02:53→15:46)
[2024-09-24] MEDS: Ibuprofen 600 MG TAB PO ×3 (02:53→15:47)
[2024-09-24 07:30] VITALS: BP 116/76; PULSE 71; RESP 12; TEMP 36.7
[2024-09-24] MEDS: Sertraline 50 MG TAB 75 MG PO (08:32)
--- NOTE | 2024-09-24 10:29 | ANES.POST_ITS ---
Postoperative Evaluation Date, Time and Location Date Performed: 09/24/24 Time Performed: 10:29 Patient Location: Obstetrics Vital Signs Most Recent Imported Vital Signs: Most Recent Vital Signs Temp Pulse Resp BP Pulse Ox 36.7 C 71 12 116/76 100 09/24/24 07:30 09/24/24 07:30 09/24/24 07:30 09/24/24 07:30 09/23/24 14:10 Pain Score Most Recent Pain Score: Most Recent Pain Score Pain Level 4 09/24/24 09:46 Assessment Mental Status: Awake (Alert & Oriented to Patient Baseline) Airway and Respiratory Function: Patent airway with normal (patient baseline) respiratory exam Cardiovascular Function: Hemodynamically Stable Hydration Status: Adequately Hydrated Nausea & Vomiting: No Nausea or Vomiting Pain: Pt. Denies Any Pain Peripheral Nerve Block: Patient did not receive a nerve block Postoperative Comments:: Epidural removed by technical staff engineer. Tip intact. Sensory coverage good during labor with resolution of Right vs. left coverage after epidural cath was pulled back 2cm. Ruby Lujan, BI[employer] PRODUCT MANAGER
--- NOTE | 2024-09-24 15:10 | OBVDS_ITS ---
Date of service: 09/24/24 Time of Service: 15:10 OB Labor/ Delivery Information Baby A Delivery Delivery Method: Spontaneaous Presentation: Cephalic Vertex Position: Left Occipital Anterior Cord Description-Baby A: 3 Vessels Cord Description Comment: short cord Amniotic Fluid: Clear Estimated Blood Loss: 300 Delivery Outcome: Liveborn Infant Transferred: Remains with Mother Note: Miki progressed to full dilation and began pushing. FHTs 200s during first stage of labor with variable decelerations associated with contractions. FHTs 120s with early and variable decelerations associated with pushing in second stage. Second stage huddle was done. She pushed well in various positions and had a spontaneous delivery of male infant delivered in FELIPA and rotated to ROP position. Baby was placed on mother's abdomen and dried and stimulated. He had good tone but did not have a spontaneous cry. Cord was clamped immediately and the baby was transferred to the warmer for assessment. I performed PPV for an episode of bradycardia and he responded quickly and he was then provided CPAP. he began a spontaneous respirations. Dr Koroma was present for delivery and Dr. Azevedo, the town marshal clinical documentation improvement specialist was paged to come to the delivery room. He received 3/6/9 apgars. Cord blood was drawn by Dr Koroma for cord gasses. The placenta delivered spontaneously and appears to by intact with a three vessel cord. It was noted to be calcified with an extra lobe. It will be sent to pathology for examination. Pitocin 30 units IV was administered before delivery of the placenta. The perineum was inspected and a first dgree laceration was repaired . The baby did breastfeed well after he returned to his mother. After delivery, Mother and baby and father of the baby were stable and bonding well in the delivery room and there were no complications. Providers Nurse Wort Extractor: Astrid Gutiérrez Nurse: Eduardo Mayorga Labor/Delivery Information Number of Babies in Womb: 1 Steroids Given: None Reason Steroids Not Administered: N/A Group Beta Strep: Negative Antibiotics Administered: No Rubella Status: Immune Blood Type: O+ Varicella Immunity: Nonimmune Shoulder Dystocia: No Stages of Labor Complete Dilatation Date: 09/23/24 Complete Dilatation Time: 12:06 ROM Baby A: 09/23/24 ROM Baby A: 08:19 ROM Total Time- Baby A: [id number] Infant Delivery Date-Baby A: 09/23/24 Infant Delivery Time-Baby A: 15:42 Labor Stage 2 Duration: 3 hours and 36 minutes Placenta Delivery Date-Baby A: 09/23/24 Placenta Delivery Time-Baby A: 15:52 Labor-Stage 3 Duration: 10 minutes Placenta Cultured: Yes Placenta Status: Delivered Baby A Infant Gender: Male Gestational Status: Term (39-41.6 wks) Gestational Age in Weeks/Days: 39 Weeks and 3 Days weight: 7 lb 7.579 oz Length-Baby A: 20.75 in Head Circumference-Baby A: 12.75 in Score-1 Minute Interval(Baby A) Heart Rate-1 minute: Below 100 BPM Respiratory Effort- 1 minute: No Spontaneous Effort Muscle Tone-1 minute: Limp Reflex Response-1 minute: Minimal Response Color-1 minute: Bluish Hands or Feet Total Score-1 minute: 3 Score-5 Minute Interval(Baby A) Heart Rate- 5 minute: 100 BPM or Greater Respiratory Effort-5 minute: Slow Respiration/Weak Cry Muscle Tone-5 minute: Minimal Flexion/Extension Reflex Response-5 minute: Minimal Response Color-5 minute: Bluish Hands or Feet Total Score- 5 minute: 6 Interventions Repair of Laceration Type: Perineal, Laceration Extension: First Degree. Sponge Count Correct: No Sponges Placed in Vagina, Sharp Count Correct: Yes. Laceration Repair Note: bilateral gonzales-urethral lacerations. The right one was deeper and was repaired
[2024-09-24 16:55] VITALS: BP 130/85; PULSE 74; RESP 18; TEMP 36.7; O2SAT 97
[2024-09-24] MEDS: Dibucaine 1% 28 GM TUBE TP (17:07)
[2024-09-24] MEDS: Hamamelis Leaf/Glycerin 100 EACH BOX PR (17:07)
--- NOTE | 2024-09-24 19:50 | DSE_ITS ---
Date of service: 09/24/24 Time of Service: 19:51 DS: Diagnosis Discharge Diagnosis (1) Gestational hypertension affecting first : Status: Acute Asessment and Plan: BP 116/76 and 130/85 today. Will follow up at OBGYN and midwifery. (2) Term of male : Status: Acute Asessment and Plan: Caring for baby independently. Pain is managed well with oral analgesics. Voiding without difficulty. well. A - stable mother and baby , Post day 1 P - Discharge to home tonight. Routine post instructions. Follow up at the office. Discharge Plan Disposition Patient Disposition: Home Condition: Good Discharge Details Reason For Visit: gestational HTN @ 39 wks, Induction of labor Admit Date/Time: 09/21/24 11:51 Admit Provider: Cherelle Holt Attending Provider: Cherelle Holt Primary Care Provider: Heide Cervantes Home Meds and New Rx's Prescriptions: No Action docusate sodium 100 mg capsule 100 mg PO BID PRN sertraline 50 mg tablet 75 mg PO DAILY 90 Days Qty: 135 4RF PNV no.95-ferrous fumarate-FA [] 28 mg iron- 800 mcg tablet 1 tab PO DAILY Nighttime Sleep-Aid (doxylamn) 25 mg tablet 12.5 mg PO QHS PRN Discharge Instructions Stand Alone Forms: BC Instructions, BC Post Vaginal Deliver Activity:: Activity as Tolerated Equipment/Supplies:: No Equipment Needed Diet:: As Tolerated Discharge Orders Discharge Orders: Discharge Order (Routine); Ordered 09/24/24 Ordered By: Astrid Gutiérrez OB:DS Summary Summary Vaginal Delivery Method: Spontaneaous Episiotomy Description: None Laceration Description: Perineal Laceration Extension: First Degree Contraception Discussed Contraception Discussed: Yes Contraceptive Plan: Foam/Condoms, [place] Gender-Baby A: Male weight: 7 lb 7.579 oz Status at Discharge Functional status at discharge: independent ambulation Overall status at discharge: patient is back to baseline Mental Status: mental status grossly normal Speech and Movement: speech and movement normal Mood: congruent mood Affect: normal affect Exam Physical Exam Vital signs: Temp Pulse Resp BP Pulse Ox 98.1 F 71 12 116/76 100 09/24/24 07:30 09/24/24 07:30 09/24/24 07:30 09/24/24 07:30 09/23/24 14:10 Vital Signs Reviewed: Yes Constitutional Constitutional: no acute distress HEENT Exam HEENT Exam: Normal Respiratory Exam Respiratory Exam: Normal Cardiovascular Exam Cardiovascular Exam: Normal Fundal Exam Fundus: Below Umbilicus and Firm Extremities Exam Extremity Exam: Normal Back/Spine/Pelvis Exam Back Exam: Normal Skin Exam Skin Exam: Normal Psychiatric Exam Psychiatric Exam: Normal PFSH All Active Problems (Updated 09/24/24 @ 19:53 by Astrid Gutiérrez CNM) Term of male (Acute) Encounter for induction of labor (Acute) Gestational hypertension affecting first (Acute) Susceptible to varicella (non-immune), currently (Acute) Elevated alkaline phosphatase level (Acute) since 2013, undetermined etiology Penicillin-induced allergic rash (Acute) (Acute) Anxiety (Chronic) Medical History (Updated 09/24/24 @ 19:53 by Astrid Gutiérrez CNM) History of miscarriage, currently Family history of hypertension in father Low back pain PT Missed menses 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 Change in bowel habit Infrequent colicky, crampy left lower quadrant pain associated with loose stool Acne vulgaris Chronic abdominal pain Lipoma of forehead Allergic rhinitis Anorexia nervosa Seborrhea capitis Raynauds phenomenon Surgical History S/P excision of lipoma H/O colonoscopy 2020 Rayle teeth extracted Tonsillectomy Family History (Updated 01/18/24 @ 15:55 by Astrid Gutiérrez CNM) Mother Endometriosis Father Thyroid disease hyperthyroid Hypertension Stroke Hyperlipidemia Grandmother Endometriosis Maternal Uncle No problems noted. Maternal Aunt Diabetes Thyroid disease Paternal Uncle Non-Hodgkin lymphoma Maternal Aunt Thyroid disease Social History Smoking/Tobacco Use Status: Never Smoking risk assessment performed?: Yes Alcohol Intake: current Alcohol Intake frequency: holidays/special occasions only Drug use: Never Substance use type: does not use Household members: significant other and other Details: Sisi Whaley. 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 Marriage 11/2022. Housing: apartment Number of Children: 0 Communication Needs: None Education Level: college Details: BA-Social work. 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 Wants advanced nursing degree. Sexually active: Yes Do you feel safe at home: Yes Do you feel safe in your relationship?: Yes Female Reproductive History Menstrual Duration of menses: 3-5 days control method: progestin IUCD History History 2 Para 0 Hx # Term Pregnancies 0 Multiple births 0 Hx # Pregnancies 0 Ectopic pregnancies 0 AB induced 0 Hx Number of Living Children 0 AB spontaneous 1 Past Pregnancies Del. Date GA/Weeks # Preg Succ Route Wgt Sex Labor Lgth Anesth esia Location [facility] 08/31/[address] Farooq Delivery Date: 08/31/23 Last Updated by: Astrid Gutiérrez CNM D and C. products of conception revealed partial Molar or villou s dysmorphism DS: Data Vitals/I&O Vitals and I&O: Vital Signs Temperature 98.1 F 09/24/24 07:30 Temperature Source Oral 09/24/24 07:30 Pulse 71 09/24/24 07:30 Pulse Rhythm Regular 09/24/24 07:30 Respiratory Rate 12 09/24/24 07:30 Respiratory Depth Normal 09/23/24 21:55 Blood Pressure 116/76 09/24/24 07:30 Blood Pressure Mean 89 09/24/24 07:30 Pulse Oximetry 100 09/23/24 14:10 Oxygen Delivery Method Room Air 09/21/24 11:51 Oxygen Flow Rate 0 09/21/24 11:51 Pain Level 4 09/24/24 15:47 Comment pt sitting upright on peanut ball 09/21/24 16:01 Intake & Output 09/23/24 09/24/24 09/24/24 23:59 11:59 23:59 Intake Total 1023.799 / 2341.281 83.5 / 83.5 Output Total 1349 1250 / 1250 Balance -326.201 / 341.281 -1166.5 / -1166.5 Intake: IV 1023.799 / 2341.281 83.5 / 83.5 Output: Urine 1349 1250 / 1250 Other: Urine Color Light Michelle Urine Appearance Clear Urine Odor None Comment Straight Cath at this time by provider
== END 2024-09-24 20:35 | disposition home or self-care (01) | DRG 806 ==
LOC: BCD 15:16 → OBS 15:16
PROVIDERS: Advanced Practice Midwife; Admitting Provider Advanced Practice Midwife; PCP Family Medicine; Visit Provider Advanced Practice Midwife
DX: O13.4 Gestational [pregnancy-induced] hypertension without significant proteinuria, complicating childbirth (principal); F50.00 Anorexia nervosa, unspecified; Z37.0 Single live birth; Z3A.39 39 weeks gestation of pregnancy; O99.344 Other mental disorders complicating childbirth; F41.9 Anxiety disorder, unspecified; O99.42 Diseases of the circulatory system complicating childbirth; I73.00 Raynaud's syndrome without gangrene; O69.3XX0 Labor and delivery complicated by short cord, not applicable or unspecified; O43.193 Other malformation of placenta, third trimester; O70.0 First degree perineal laceration during delivery; O71.82 Other specified trauma to perineum and vulva
CPT/HCPCS: 59200; 36415; 80053; 85027; 86850; 86900; 86901; 84550; 88307; J2405; J3490

== ENCOUNTER 2024-11-23 04:15 | Outpatient (CLI) | payer BC, SELFPAY ==
[2024-11-23 11:39] LABS: TSH (W/Ref FT4) 0.85 uIU/mL (0.36-3.74)
== END 2024-11-23 04:16 | disposition home or self-care (01) ==
LOC: LBO 04:16
PROVIDERS: PCP Family Medicine; Visit Provider Advanced Practice Midwife
DX: E04.0 Nontoxic diffuse goiter (principal); F41.9 Anxiety disorder, unspecified
CPT/HCPCS: 36415; 84443

== ENCOUNTER 2025-01-01 15:53 | Outpatient (REF) | payer BC, SELFPAY | END 2025-01-01 15:54 | disposition home or self-care (01) | LOC: LBN 15:53 | PROVIDERS: PCP Family Medicine; Visit Provider Advanced Practice Midwife | DX: R39.15 Urgency of urination (principal) | CPT/HCPCS: 87086; 87480; 87510; 87660 ==

== ENCOUNTER 2025-02-15 15:47 | Outpatient (REF) | payer BC, SELFPAY ==
--- NOTE | 2025-02-15 15:30 | PAPFT_PTH ---
PATIENT: Miki Day LOC: [facility] U#:[id number] AGE/SX: 24/F ROOM: RE02/15/[address]: Astrid Gutiérrez : 2000 BED: DIS: 02/15/2025 SPEC #: [id number] RECD: 02/15/25 18:21 STATUS: DARYL REQ #: [id number] [place]: 02/15/25 15:[address]: Astrid Gutiérrez DEPT: [facility] Cytology RECD BY: Kristina Martinez ENTERED: 02/15/25 18:21 SP TYPE: PAPFT OTHR DR: Heide Cervantes Tissues: 1 - CX/ENDOCX FOR PAP SMEARS Procedures: PAP THIN PREP/[facility] Screening Comments: [id number]
== END 2025-02-15 15:48 | disposition home or self-care (01) ==
LOC: LBN 15:47
PROVIDERS: PCP Family Medicine; Visit Provider Advanced Practice Midwife
DX: Z12.4 Encounter for screening for malignant neoplasm of cervix (principal)
CPT/HCPCS: 88142